=== PATIENT | female | born 1990 ===

== ENCOUNTER 2021-03-02 16:04 | Outpatient (REF) | payer MEDICAID, SELFPAY ==
--- NOTE | ~2021-03-02 | US_ITS ---
EXAMINATION: ULTRASOUND PELVIS AND TRANSVAGINAL CLINICAL INFORMATION: Dysmenorrhea COMPARISON: None TECHNIQUE: Transabdominal and transvaginal imaging of pelvis is performed FINDINGS: The exam is limited due to patient's body habitus. The uterus is anteverted and anteflexed measuring 9.7 cm in length, 3.5 cm in AP and 5.3 cm transverse dimension. The endometrial thickness measures 0.5 cm. No focal lesion seen in the uterus. The right ovary measures 4.8 x 3.4 x 4.6 cm and volume 29.3 mL. There is anechoic cyst with septation measuring 4.3 x 3.1 x 4.3 cm Left ovary measures 2.9 x 2.0 x 2.4 cm and volume 7.3 mL. There is small amount of free fluid in the cul-de-sac. US/US pelvic and transvaginal IMPRESSION: Small complex cyst right ovary measuring 4.3 x 3.1 x 4.3 cm.
== END 2021-03-02 16:05 | disposition home or self-care (01) ==
LOC: HO.US 16:04
PROVIDERS: Visit Provider Advanced Practice Midwife
DX: N94.6 Dysmenorrhea, unspecified (principal)
CPT/HCPCS: 76830; 76856

== ENCOUNTER 2021-07-15 09:15 | Emergency (ER) | payer MEDICAID, SELFPAY ==
--- NOTE | ~2021-07-15 | US_ITS ---
EXAMINATION: US OBSTETRICAL ULTRASOUND CLINICAL INFORMATION: 68 weeks gestation. Vaginal bleeding, lower abdominal cramping COMPARISON: None. TECHNIQUE: Transabdominal imaging of pelvis is performed. FINDINGS: There is a single live intrauterine fetus with a crown-rump length of 2.47 cm corresponding 9 weeks 2 days and NOE of 02/15/2022. There is visualization of yolk sac and pole. The heart rate is 1 76/m. The right ovary measures 2.6 x 1.9 x 1.9 cm and appears unremarkable. The left ovary measures 2.5 x 2.7 x 3.9 cm. There is anechoic cyst measuring 2.0 x 1.6 x 2.0 cm. There is no free fluid in the cul-de-sac. US/US OB pelvic and transvaginal IMPRESSION: Single live intrauterine fetus with ultrasound-guided age of 9 weeks 2 days and NOE of 02/15/2022. There is anechoic cyst left ovary measuring 2.0 x 1.6 x 2.0 cm.
[2021-07-15 09:20] VITALS: BP 141/77; PULSE 115; RESP 17; TEMP 36.8; O2SAT 98; BMI 47.1
--- NOTE | 2021-07-15 09:58 | ED_ITS ---
HPI - General Adult General Chief complaint: Vaginal Bleeding Stated complaint: vaginal bleeding - Time Seen by Provider: 07/15/21 09:50 Source: patient Mode of arrival: ambulatory History of Present Illness HPI narrative: 31-year-old female with a past medical history of sleep apnea, asthma, at about 6-8 weeks gestation, unknown LMP, presenting to the ED complaining of vaginal bleeding since yesterday. Admits recently found out she was on Saturday, had labs drawn outpatient, however does not remember HCG but was told she was 6-8 weeks , has not seen OBGYN yet. Also reports pelvic pressure. Denies fever, chills, lightheadedness/dizziness, nausea/vomiting, dysuria/hematuria, vaginal discharge Onset (ago): day(s) Related Data Allergies Allergy/AdvReac Type Severity Reaction Status Date / Time No Known Allergies Allergy Unverified 06/09/20 16:31 [No Known Allergies*] Seasonal Allergies Allergy Unknown itching Uncoded 05/05/19 00:00 Review of Systems Review of Systems: Constitutional: No Fever, No Chills, No Fatigue, No Malaise ENT/Mouth: No Ear Pain, No sore throat Cardiovascular: No Chest Pain, No SOB Respiratory: No Cough, No Dyspnea Gastrointestinal: No Nausea, No Vomiting, No Diarrhea, No Constipation, + Abdominal pain Genitourinary: + irregular bleeding, No Dysuria, No Urinary Frequency, No Hematuria, No Flank Pain Musculoskeletal: No joint pain, No Myalgias, No Joint Swelling Skin: No Skin Lesions, No rash Neuro: No Weakness, No Numbness, No Paresthesias, No Dizziness, No Headache Yes all other systems are reviewed and are negative [facility] Past Medical History Attestation statement: The following information was validated with the patient. Medical History (Updated 07/15/21 @ 12:38 by RUBEN Dowell) Asthma Irregular heart beat Sleep apnea Social History Social History Advance Directives: No Physical Exam Vital Signs: Vital Signs: Last Vital Signs Temp 98.3 F 07/15/21 09:20 Pulse 115 H 07/15/21 09:20 Resp 17 07/15/21 09:20 BP 141/77 H 07/15/21 09:20 Pulse Ox 98 07/15/21 09:20 Body Mass Index 47.1 Const: General: cooperative, healthy appearing, no acute distress, well developed, alert and awake Orientation/consciousness: patient oriented x3 Limitations: no limitations HENMT: Head: Yes normal to inspection Ears: hearing grossly normal bilaterally General nose exam: Normal external nose present Face and sinus: Yes normal facial exam Eyes: General: appearance normal, both eyes and all related structures EOM: EOMs intact bilaterally Neck: Neck: Yes normal visual inspection and Yes no meningeal signs Resp: Effort & Inspection: normal respiratory effort and no respiratory distress Cardio: Rate: regular rate GI: Inspection: Yes normal to inspection Palpation (GI): Soft to palpation, Tenderness to palpation present (GI) (Mild suprapubic TTP, no rebound or guarding), no guarding and not rigid : General: Yes no CVA tenderness Back/Spine/Pelvis: Back: no CVA tenderness Skin: Rashes: no rashes Wounds: no wounds Neuro: General: patient oriented x3, tone normal, moves all extremities and no meningeal signs Gait exam (Neuro): Normal gait present Extrem: General: Yes normal to inspection Course Course Course Narrative: -1205--labs unremarkable, beta quant 49,726 US OB pelvic and transvaginal IMPRESSION: Single live intrauterine fetus with ultrasound-guided age of 9 weeks 2 days and NOE of 02/15/2022. ? There is anechoic cyst left ovary measuring 2.0 x 1.6 x 2.0 cm. -1237--UA negative >> results discussed with patient including worrisome signs and symptoms and strict return precautions, she verbalized understanding feel safe for discharge home to follow-up with OBGYN Medical Decision Making MDM Narrative Medical decision making narrative: 31-year-old female with a past medical history of sleep apnea, asthma, at about 6-8 weeks gestation, unknown LMP, presenting to the ED complaining of vaginal bleeding since yesterday. On exam tachycardic, NAD, nontoxic appearing, abdomen soft with suprapubic TTP, on pelvic exam Concern for threatened /SAB vs ectopic. Lower concern for appendicitis/diverticulitis. R/o UTI Plan: Labs, UA, OB/pelvic U.S., IVF, reassess Lab Data Result diagrams: 07/15/21 10:17 07/15/21 10:17 Labs: Lab Results 07/15/21 07/15/21 07/15/21 Range/Units 10:17 10:17 12:07 WBC 8.9 (4.8-10.8) X10*3/uL RBC 5.04 (4.20-5.50) X10*6/uL Hgb 12.6 (12.0-16.0) g/dl Hct 41.0 (37-47) % MCV 81.3 (80-98) fL MCH 25.0 L (27.0-33.0) pg MCHC 30.7 L (31.0-35.0) g/dl RDW 14.6 (11.0-16.0) % Plt Count 224 (160-400) X10*3/uL MPV 12.1 (9.4-12.3) fL Immature Gran % (Auto) 0.3 (0.0-0.4) % Neut % (Auto) 59.6 (45-73) % Lymph % (Auto) 32.4 (20-40) % Harper % (Auto) 6.1 (2-11) % Eos % (Auto) 1.3 (0-4) % Baso % (Auto) 0.3 (0-2) % Lymph # (Auto) 2.9 (1.2-4.9) X10*3/uL Harper # (Auto) 0.5 (0.1-1.2) X10*3/uL Eos # (Auto) 0.1 (0.0-0.4) X10*3/uL Baso # (Auto) 0.0 (0.0-0.2) X10*3/uL Abs Immat Gran (auto) 0.03 (0.00-0.03) X10*3/uL Absolute Neuts (auto) 5.3 (2.0-8.3) X10*3/uL Absolute Nucleated RBC 0.000 (0.0-0.012) X10*3/uL Nucleated RBC % (auto) 0.0 (0.0-0.2) /100WBC Sodium 134 L (135-145) mmol/L Potassium 3.9 (3.3-5.1) mmol/L Chloride 100 (96-108) mmol/L Carbon Dioxide 26 (22-29) mmol/L Anion Gap 12 (12-20) BUN 11 (9-16) mg/dL Creatinine 0.69 (0.5-1.4) mg/dL Estim Creat Clear Calc 172.3 Estimated GFR > 60 Random Glucose 94 (60-115) mg/dL Calcium 9.5 (8.4-10.2) mg/dL Magnesium 1.7 (1.6-2.6) mg/dL Total Bilirubin 0.2 (0.0-1.0) mg/dL Direct Bilirubin < 0.2 (0.0-0.5) mg/dL AST 19 (5-31) U/L ALT 25 (0-31) U/L Alkaline Phosphatase 96 (39-117) U/L Total Protein 7.4 (6.5-8.0) g/dL Albumin 3.9 (3.5-5.0) g/dL Lipase 17 (8-78) U/L Beta HCG, Quant 16445 mIU/mL Urine Color YELLOW Urine Appearance CLOUDY Urine pH 7.0 (5.0-8.0) Ur Specific [place] 1.015 (1.005-1.025) Urine Protein NEG (NEG-TRACE) MG/DL Urine Glucose (UA) NEG (NEG) MG/DL Urine Ketones NEG (NEG) MG/DL Urine Blood NEG (NEG) Urine Nitrite NEG (NEG) Ur Leukocyte Esterase NEG (NEG) Discharge Plan Discharge Clinical Impression: Threatened Patient Disposition: Home, Self-Care Instructions: Threatened Miscarriage (ED) Additional Instructions: Your ultrasound showed a single live intrauterine at 9 weeks 2 days with an estimated delivery date of February 15 Your blood work was reassuring It is very important that you follow-up with her OBGYN If he develops constant worsening abdominal pain/cramping, worsening or persistent vaginal bleeding, vaginal discharge, lightheadedness or dizziness return to the ED immediately Referrals: Toby Wells MD [Physician] - 2 days
[2021-07-15] MEDS: 0.9 % Sodium Chloride 1,000 ML 999 ML IVCONT (10:18)
[2021-07-15 10:34] LABS: MANUAL DIFF FLAG NO
[2021-07-15 10:38] LABS: Basophils Percent Auto 0.3 % (0-2); Eosinophils Absolute Auto 0.1 X10*3/uL (0.0-0.4); Eosinophils Percent Auto 1.3 % (0-4); Hemoglobin 12.6 g/dl (12.0-16.0); Imm Gran Abs Auto 0.03 X10*3/uL (0.00-0.03); Imm Gran Pct Auto 0.3 % (0.0-0.4); Lymphocytes Absolute Auto 2.9 X10*3/uL (1.2-4.9); Lymphocytes Percent Auto 32.4 % (20-40); Mean Corpuscular HGB Conc 30.7 g/dl (31.0-35.0); Mean Corpuscular Volume 81.3 fL (80-98); Mean Platelet Volume 12.1 fL (9.4-12.3); Monocytes Absolute Auto 0.5 X10*3/uL (0.1-1.2); Monocytes Percent Auto 6.1 % (2-11); Neutrophils Absolute Auto 5.3 X10*3/uL (2.0-8.3); Neutrophils Percent Auto 59.6 % (45-73); Platelet Count 224 X10*3/uL (160-400); Red Blood Count 5.04 X10*6/uL (4.20-5.50); Red Cell Distribution Width 14.6 % (11.0-16.0); White Blood Count 8.9 X10*3/uL (4.8-10.8)
[2021-07-15 10:54] LABS: Alanine Aminotransferase 25 U/L (0-31); Albumin Level 3.9 g/dL (3.5-5.0); Alkaline Phosphatase 96 U/L (39-117); Anion Gap 12 (12-20); Aspartate Amino Transferase 19 U/L (5-31); Bilirubin Direct < 0.2 mg/dL (0.0-0.5); Bilirubin Total 0.2 mg/dL (0.0-1.0); Blood Urea Nitrogen 11 mg/dL (9-16); Calcium 9.5 mg/dL (8.4-10.2); Carbon Dioxide 26 mmol/L (22-29); Chloride 100 mmol/L (96-108); Creatinine Clr Calc Pharmacy 172.3; Estimated Glomerular Filt Rate > 60; Glucose Random 94 mg/dL (60-115); Lipase 17 U/L (8-78); Magnesium 1.7 mg/dL (1.6-2.6); Potassium 3.9 mmol/L (3.3-5.1); Sodium 134 mmol/L (135-145); Total Protein 7.4 g/dL (6.5-8.0)
--- NOTE | 2021-07-15 12:06 | PC.NURSE ---
Pt resting comfortably. Minimal vag bleeding noted when she urinated per report of pt
[2021-07-15 12:28] LABS: Appearance Urine CLOUDY; Color Urine YELLOW; Glucose Urine UA NEG (NEG); Leukocyte Esterase Urine NEG (NEG); Nitrite Urine NEG (NEG); Specific Gravity - Urine 1.015 (1.005-1.025); Urine Blood NEG (NEG); Urine Ketones NEG (NEG); Urine Protein NEG (NEG-TRACE)
[2021-07-15 12:48] VITALS: BP 159/77; PULSE 89; RESP 16; O2SAT 100
== END 2021-07-15 12:49 | disposition home or self-care (01) ==
PROVIDERS: Physician Assistant; Emergency Provider Emergency Medicine
DX: O20.0 Threatened abortion (principal); Z3A.01 Less than 8 weeks gestation of pregnancy
CPT/HCPCS: 36415; 76801; 76817; 80048; 80076; 81003; 83690; 83735; 84702; 85025; 96360; 99283; 99284

== ENCOUNTER → 2021-08-01 14:35 | Outpatient (BNVA) | payer MEDICAID, SELFPAY | PROVIDERS: Visit Provider Advanced Practice Midwife | DX: Z32.01 Encounter for pregnancy test, result positive (principal); O99.210 Obesity complicating pregnancy, unspecified trimester; E66.01 Morbid (severe) obesity due to excess calories; Z3A.00 Weeks of gestation of pregnancy not specified | CPT/HCPCS: 81025; 99202 ==

== ENCOUNTER 2021-09-14 17:55 | Emergency (ER) | payer MEDICAID, SELFPAY ==
[2021-09-14 18:10] VITALS: BP 154/73; PULSE 87; RESP 16; TEMP 37.1; O2SAT 99; BMI 47.9
[2021-09-14 20:00] VITALS: BP 131/85; PULSE 85; RESP 18; O2SAT 100
--- NOTE | 2021-09-14 20:08 | ED.FALL ---
HPI - Fall General Chief Complaint: Fall Stated Complaint: fall - 17 wks preg Time Seen by Provider: 09/14/21 20:08 Source: patient Mode of arrival: ambulatory Limitations: no limitations History of Present Illness HPI Narrative: Patient 17 weeks or going upstairs slipped and fell on her belly complaining of pressure feeling on right upper abdomen and left side pain no vaginal bleeding patient is obese 138 kg no other injury Related Data Home Medications Medication Instructions Recorded Confirmed albuterol sulfate 90 mcg/actuation 2 puff INHALATION Q6H PRN 08/01/21 08/01/21 aerosol inhaler (Proventil HFA) loratadine 10 mg tablet (Allergy 10 mg PO DAILY 08/01/21 08/01/21 Relief (loratadine)) prenat.vits,nirav,cch-auqs-wyvzm 1 tab PO DAILY 08/01/21 08/01/21 Allergies Allergy/AdvReac Type Severity Reaction Status Date / Time No Known Allergies Allergy Verified 09/14/21 20:27 [No Known Allergies*] Seasonal Allergies Allergy Unknown itching Uncoded 09/14/21 20:27 Review of Systems Review of Systems: Yes all other systems are reviewed and are negative [facility] Past Medical History Medical History Asthma Irregular heart beat Sleep apnea Social History Social History Advance Directives: No Advance Directives Information Provided: Yes Patient : Yes Physical Exam Vital Signs: Vital Signs: Last Vital Signs Temp 98.7 F 09/14/21 18:10 Pulse 85 09/14/21 20:00 Resp 18 09/14/21 20:00 BP 131/85 09/14/21 20:00 Pulse Ox 100 09/14/21 20:00 BMI result Body Mass Index 47.9 Appearance: Alert. Oriented X3. No acute distress. Eyes: No pallor or icterus HEENT: Atraumatic normocephalic Pharynx normal. Oral Mucosa moist Neck: Normal inspection. Neck supple. CVS: Normal heart rate and rhythm. Pulses normal. Respiratory: No respiratory distress. Equal air entry bilateral, no wheezing/rales/rhonchi Abdomen: Obese soft mild diffuse lower abdominal tenderness no rebound tenderness or guarding Bowel sounds are present, no mass palpable, no CVA tenderness Skin: Skin warm and dry. Normal skin color. Normal skin turgor. Extremities: No lower extremity edema. Neuro: Oriented X 3. Procedures Procedure Narrative Procedure Narrative: Ob ultrasound: Done by myself. heart sounds 151 beats per minute placenta intact no subchorionic bleed fetus with good movements MDM - Fall MDM Narrative Medical decision making narrative: Patient obese status post minor fall bedside ultrasound done which showed normal movements no subchorionic fluid collection heart rate was 151 beats per minute patient advised to follow with OBG if any concern Discharge Plan Discharge Clinical Impression: Blunt abdominal trauma Qualifiers: Encounter type: initial encounter Qualified Code(s): S39.91XA - Unspecified injury of abdomen, initial encounter Patient Disposition: Home, Self-Care Instructions: Blunt Abdominal Injury (ED) Additional Instructions: At this time your fetus has normal heart beats and no bleeding noticed Report to the ER/OBG if any vaginal bleed or increased abdominal pain Prescriptions: No Action prenat.vits,nirav,aie-htct-spame Tablet 1 tab PO DAILY RF: 0 loratadine [Allergy Relief (loratadine)] 10 mg tablet 10 mg PO DAILY RF: 0 albuterol sulfate [Proventil HFA] 90 mcg/actuation HFA aerosol inhaler 2 puff inhalation Q6H PRNRF: 0 Stand Alone Forms: Work/School Release Interventions: ED Discharge Assessment Last Done: 09/14/21 21:09
== END 2021-09-14 21:45 | disposition home or self-care (01) ==
PROVIDERS: Emergency Provider Internal Medicine
DX: O9A.212 Injury, poisoning and certain other consequences of external causes complicating pregnancy, second trimester (principal); S39.91XA Unspecified injury of abdomen, initial encounter; O99.212 Obesity complicating pregnancy, second trimester; Z3A.17 17 weeks gestation of pregnancy; W19.XXXA Unspecified fall, initial encounter; Y93.9 Activity, unspecified; Y92.9 Unspecified place or not applicable; Y99.9 Unspecified external cause status
CPT/HCPCS: 99283; 99284

== ENCOUNTER → 2021-09-28 15:17 | Outpatient (BNVA) | payer MEDICAID, SELFPAY | PROVIDERS: PCP Internal Medicine; Visit Provider Hospitalist | DX: G47.33 Obstructive sleep apnea (adult) (pediatric) (principal); J45.909 Unspecified asthma, uncomplicated; Z33.1 Pregnant state, incidental | CPT/HCPCS: 99202 ==

== ENCOUNTER → 2021-11-17 14:10 | Outpatient (BNVA) | payer MEDICAID, SELFPAY | PROVIDERS: PCP Internal Medicine; Visit Provider Hospitalist | DX: O99.352 Diseases of the nervous system complicating pregnancy, second trimester (principal); G47.33 Obstructive sleep apnea (adult) (pediatric); O99.512 Diseases of the respiratory system complicating pregnancy, second trimester; J45.909 Unspecified asthma, uncomplicated; Z3A.00 Weeks of gestation of pregnancy not specified; Z99.89 Dependence on other enabling machines and devices | CPT/HCPCS: 99212 ==

== ENCOUNTER → 2021-11-28 15:04 | Outpatient (BNVA) | payer MEDICAID, SELFPAY | PROVIDERS: PCP Internal Medicine; Referring Provider Internal Medicine; Visit Provider Nurse Practitioner Family | DX: O26.893 Other specified pregnancy related conditions, third trimester (principal); G47.33 Obstructive sleep apnea (adult) (pediatric); J30.2 Other seasonal allergic rhinitis; Z3A.00 Weeks of gestation of pregnancy not specified; Z91.14 Patient's other noncompliance with medication regimen; Z99.89 Dependence on other enabling machines and devices | CPT/HCPCS: 99202 ==

== ENCOUNTER 2021-12-03 21:17 | Emergency (ER) | payer MEDICAID, SELFPAY ==
[2021-12-03 21:58] VITALS: BP 158/48; PULSE 112; RESP 20; TEMP 37.4; O2SAT 96; BMI 49.8
[2021-12-04 04:10] VITALS: BP 139/76; PULSE 107; RESP 20; O2SAT 92
[2021-12-04 04:11] LABS: COVID-19 Test Negative (Negative)
[2021-12-04 04:18] LABS: Hematocrit 36.4 % (37.0-47.0); Hemoglobin 11.1 g/dl (12.0-16.0); Mean Corpuscular HGB Conc 30.5 g/dl (31.0-35.0); Mean Corpuscular Hemoglobin 24.7 pg (27.0-33.0); Mean Corpuscular Volume 81.1 fL (80.0-98.0); Mean Platelet Volume 11.4 fL (9.4-12.3); Platelet Count 204 X10*3/uL (160-400); Red Blood Count 4.49 X10*6/uL (4.20-5.50); Red Cell Distribution Width 14.6 % (11.0-16.0); White Blood Count 11.3 X10*3/uL (4.8-10.8)
--- NOTE | 2021-12-04 04:26 | ED_ITS ---
HPI - SOB/Dyspnea General Chief Complaint: Dyspnea Stated Complaint: asthmatic, SoB, cough Time Seen by Provider: 12/03/21 23:06 Source: patient Mode of arrival: ambulatory Limitations: no limitations History of Present Illness HPI Narrative: Patient comes emergency room complaining of cough, asthma exacerbation for about a week. Patient states she has been using her nebulization treatment without significant improvement. Denies chest pain, no calf pain. Of note, patient is 23 weeks . Patient denies abdominal cramping, vaginal discharge/fluid/blood Related Data Home Medications Medication Instructions Recorded Confirmed prenat.vits,nirav,ahi-mavd-tkuzl 1 tab PO DAILY 08/01/21 11/28/21 Previous Rx's Medication Instructions Recorded fluticasone propionate 50 2 spray INTRANASAL DAILY #16 g 12/04/21 mcg/actuation nasal spray,suspension (Flonase Allergy Relief) prednisone 50 mg tablet 50 mg PO DAILY #4 tab 12/04/21 Allergies Allergy/AdvReac Type Severity Reaction Status Date / Time No Known Allergies Allergy Verified 11/28/21 15:08 [No Known Allergies*] Seasonal Allergies Allergy Unknown itching Uncoded 11/28/21 15:08 Review of Systems Review of Systems: Constitutional : No Weight loss, No Fever, No Chills, No Night Sweats, No Fatigue, No Malaise ENT/Mouth : No Hearing loss, No Ear Pain, No Nasal Congestion, No Sinus Pain, No Hoarseness, No sore throat, No Rhinorrhea, No Swallowing Difficulty Eyes: No Eye Pain, No Swelling, No Redness, No Foreign Body, No Discharge, No Vision Changes Cardiovascular : No Chest Pain, no palpitations, no orthopnea Respiratory : Complaining of cough, frequent asthma exacerbations Gastrointestinal : No Nausea, No Vomiting, No Diarrhea, No Constipation, No abdominal Pain, No Hematochezia, No Melena Genitourinary : no irregular bleeding, No Dysuria, No Urinary Frequency, No Hematuria, No Urinary Incontinence, No Urgency, No Flank Pain, No Urinary Flow Changes, No Hesitancy Musculoskeletal : No joint pain, No Myalgias, No Joint Swelling Skin : No Skin Lesions, No rash Neuro : No Weakness, No Numbness, No Paresthesias, No Loss of Consciousness, No Dizziness, No Headache Psych : No Anxiety/Panic, No Depression, No SI/HI/AH/VH, No Social Issues, Heme/Lymph: No Bruising, No Bleeding,No Lymphadenopathy Endocrine : No Polyuria, No Polydipsia, No Temperature Intolerance [facility] Past Medical History Medical History Asthma Irregular heart beat GILBERTO (obstructive sleep apnea) Sleep apnea Surgical History History of section Family History Family History (Updated 11/28/21 @ 15:10 by GABI Boland) Father No problems noted. Mother No problems noted. 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 Oriented X3. No acute distress. Eyes: Pupils equal, round and reactive to light. ENT: Pharynx normal. Neck: Normal inspection. Neck supple. No lymph nodes noted. No crepitus CVS: Normal heart rate and rhythm. Pulses normal. Normal S1 and S2 Respiratory: No respiratory distress. Breath sounds normal. No Wheezing. No rales . Actively coughing Abdomen: Soft and nontender. No rigidity. No distention. Skin: Skin warm and dry. Normal skin color. Normal skin turgor. Extremities: No lower extremity edema. No Lacerations. No Rash Neuro: Oriented X 3. No motor deficit. No sensory deficit. Moving all extremities. No slurred speech. CN 2 through 12 grossly intact Psych: calm, cooperative, normal affect Course Course Course Narrative: Patient sounds nasally congested. At this time we will not get a x-ray. Patient . Patient has no fever, pneumonia is not suspected. Patient will be given prednisone and Flonase. Patient instructed to follow-up with her primary care physician P MDM - SOB/Dyspnea Lab Data Result diagrams: 12/04/21 04:15 12/04/21 04:15 Labs: Lab Results 12/04/21 12/04/21 Range/Units 03:51 04:15 WBC 11.3 H (4.8-10.8) X10*3/uL RBC 4.49 (4.20-5.50) X10*6/uL Hgb 11.1 L (12.0-16.0) g/dl Hct 36.4 L (37.0-47.0) % MCV 81.1 (80.0-98.0) fL MCH 24.7 L (27.0-33.0) pg MCHC 30.5 L (31.0-35.0) g/dl RDW 14.6 (11.0-16.0) % Plt Count 204 (160-400) X10*3/uL MPV 11.4 (9.4-12.3) fL Absolute Nucleated RBC 0.000 (0.0-0.012) X10*3/uL Nucleated RBC % (auto) 0.0 (0.0-0.2) /100WBC COVID-19 (JESSICA) Negative (Negative) COVID-19 Clin Com See Note Discharge Plan Discharge Clinical Impression: Acute upper respiratory infection, Asthma Patient Disposition: Home, Self-Care Instructions: Asthma (ED), Upper Respiratory Infection (ED) Additional Instructions: Please follow-up with your primary care physician tomorrow. If you have any worsening or new symptoms, please return to the emergency room or call 911 Prescriptions: New fluticasone propionate [Flonase Allergy Relief] 50 mcg/actuation spray,suspension 2 spray intranasal DAILY Qty: 16 0RF Rx Instructions: administer into each nostril prednisone 50 mg tablet 50 mg PO DAILY Qty: 4 0RF No Action prenat.vits,nirav,amw-qdha-eubbr Tablet 1 tab PO DAILY 0RF
[2021-12-04] MEDS: predniSONE 20 MG TABLET 60 MG PO (04:38)
--- NOTE | 2021-12-04 04:39 | PC.NURSE ---
pt a&o, no respiratory distress at this time. Pt able to speak in full sentence with no retraction. The plan is for the pt to be discharge home.
[2021-12-04 04:40] LABS: Alanine Aminotransferase 20 U/L (0-31); Albumin Level 3.4 g/dL (3.5-5.0); Alkaline Phosphatase 115 U/L (39-117); Anion Gap 15 (12-20); Aspartate Amino Transferase 22 U/L (5-31); Bilirubin Total < 0.2 mg/dL (0.0-1.0); Blood Urea Nitrogen 5 mg/dL (9-16); Calcium 8.7 mg/dL (8.4-10.2); Carbon Dioxide 21 mmol/L (22-29); Chloride 104 mmol/L (96-108); Creatinine Clr Calc Pharmacy 219.5; Estimated Glomerular Filt Rate > 60; Glucose Random 108 mg/dL (60-115); Sodium 136 mmol/L (135-145)
--- NOTE | 2021-12-04 04:52 | PC.NURSE ---
reviewed discharge instructions with pt, pt verbalized understanding.
== END 2021-12-04 04:53 | disposition home or self-care (01) ==
PROVIDERS: Emergency Provider Emergency Medicine; PCP Internal Medicine
DX: J06.9 Acute upper respiratory infection, unspecified (principal); J45.909 Unspecified asthma, uncomplicated; R06.00 Dyspnea, unspecified; R05.9 Cough, unspecified; Z20.822 Contact with and (suspected) exposure to COVID-19; Z79.899 Other long term (current) drug therapy
CPT/HCPCS: 36415; 80053; 85027; 87635; 99283

== ENCOUNTER → 2021-12-05 13:49 | Outpatient (BNVA) | payer MEDICAID, SELFPAY | PROVIDERS: PCP Internal Medicine; Visit Provider Hospitalist | DX: O99.519 Diseases of the respiratory system complicating pregnancy, unspecified trimester (principal); J45.909 Unspecified asthma, uncomplicated; O99.350 Diseases of the nervous system complicating pregnancy, unspecified trimester; G47.33 Obstructive sleep apnea (adult) (pediatric); Z3A.00 Weeks of gestation of pregnancy not specified; Z79.52 Long term (current) use of systemic steroids | CPT/HCPCS: 99212 ==

== ENCOUNTER → 2022-01-18 14:50 | Outpatient (BNVA) | payer MEDICAID, SELFPAY | PROVIDERS: PCP Internal Medicine; Visit Provider Hospitalist | DX: Z34.93 Encounter for supervision of normal pregnancy, unspecified, third trimester (principal); J45.909 Unspecified asthma, uncomplicated; J18.9 Pneumonia, unspecified organism; U07.1 COVID-19; Z3A.35 35 weeks gestation of pregnancy | CPT/HCPCS: 99212 ==

== ENCOUNTER 2022-07-06 12:19 | Outpatient (REF) | payer MEDICAID, SELFPAY ==
--- NOTE | ~2022-07-06 | XR_ITS ---
EXAMINATION: XR LUMBOSACRAL SPINE WITH OBLIQUES CLINICAL INFORMATION: Low back pain COMPARISON: Lumbar radiographs 04/25/2020. TECHNIQUE: Lumbar spine is imaged in 7 views: AP x2, lateral, lateral view coned to lumbosacral junction, and oblique x3. FINDINGS: There is normal lumbar segmentation with 5 nonrib-bearing lumbar vertebrae of normal height and normal lumbar lordosis. There is no lumbar vertebral compression, spondylolisthesis, disc narrowing. No erosive changes. No spondylolysis. The SI joints and visualized sacrum are unremarkable. XR/XR lumbar spine 4V min IMPRESSION: Unremarkable examination.
== END 2022-07-06 12:20 | disposition home or self-care (01) ==
LOC: HO.XRAY 12:19
PROVIDERS: PCP Internal Medicine; Visit Provider Internal Medicine
DX: M54.50 Low back pain, unspecified (principal)
CPT/HCPCS: 72110

== ENCOUNTER 2022-07-20 13:34 | Outpatient (REF) | payer MEDICAID, SELFPAY ==
[2022-07-20 13:47] LABS: MANUAL DIFF FLAG NO
[2022-07-20 14:11] LABS: Basophils Percent Auto 0.5 % (0-2); Eosinophils Absolute Auto 0.2 X10*3/uL (0.0-0.4); Eosinophils Percent Auto 2.5 % (0-4); Hematocrit 43.4 % (37.0-47.0); Hemoglobin 13.1 g/dl (12.0-16.0); Imm Gran Abs Auto 0.01 X10*3/uL (0.00-0.03); Imm Gran Pct Auto 0.1 % (0.0-0.4); Lymphocytes Absolute Auto 3.4 X10*3/uL (1.2-4.9); Lymphocytes Percent Auto 42.5 % (20-40); Mean Corpuscular HGB Conc 30.2 g/dl (31.0-35.0); Mean Corpuscular Hemoglobin 22.9 pg (27.0-33.0); Mean Corpuscular Volume 75.7 fL (80.0-98.0); Mean Platelet Volume 11.3 fL (9.4-12.3); Monocytes Absolute Auto 0.5 X10*3/uL (0.1-1.2); Monocytes Percent Auto 6.8 % (2-11); Neutrophils Absolute Auto 3.8 x10*3/uL (2.0-8.3); Neutrophils Percent Auto 47.6 % (45-73); Platelet Count 291 X10*3/uL (160-400); Red Blood Count 5.73 X10*6/uL (4.20-5.50); Red Cell Distribution Width 15.9 % (11.0-16.0); White Blood Count 7.9 X10*3/uL (4.8-10.8)
[2022-07-20 16:45] LABS: Erythrocyte Sedimentation Rate 22 MM/HR (0-20)
== END 2022-07-20 13:35 | disposition home or self-care (01) ==
LOC: HO.LAB 13:34
PROVIDERS: PCP Internal Medicine; Visit Provider Hospitalist
DX: J45.909 Unspecified asthma, uncomplicated (principal); G47.33 Obstructive sleep apnea (adult) (pediatric)
CPT/HCPCS: 36415; 82785; 85025; 85652; 86003; 99212

== ENCOUNTER → 2023-03-18 14:29 | Outpatient (BNVA) | payer MEDICAID, SELFPAY | PROVIDERS: PCP Internal Medicine; Visit Provider Hospitalist | DX: J45.40 Moderate persistent asthma, uncomplicated (principal); J30.9 Allergic rhinitis, unspecified; G47.33 Obstructive sleep apnea (adult) (pediatric) | CPT/HCPCS: 99212 ==

== ENCOUNTER 2023-08-08 10:03 | Outpatient (REF) | payer MEDICAID, SELFPAY ==
--- NOTE | ~2023-08-08 | XR_ITS ---
EXAMINATION: XR CHEST CLINICAL INFORMATION: Cough for 3 to 4 weeks. COMPARISON: Chest x-ray December 23, 2018 TECHNIQUE: 2 views of the chest were obtained. FINDINGS: Cardiac silhouette is normal in size. The lungs are well aerated. There is no lobar consolidation. No pleural effusion or pneumothorax. Mild degenerative changes of the spine. XR/XR chest 2V IMPRESSION: No acute pulmonary pathology.
== END 2023-08-08 10:04 | disposition home or self-care (01) ==
LOC: HO.HHCX 10:03
PROVIDERS: Visit Provider Family Medicine
DX: R05.2 Subacute cough (principal)
CPT/HCPCS: 71046

== ENCOUNTER 2023-10-27 12:49 | Emergency (ER) | payer MEDICAID, SELFPAY ==
--- NOTE | ~2023-10-27 | US_ITS ---
EXAMINATION: US PELVIS CLINICAL INFORMATION: Ovarian lesion abnormal CT scan COMPARISON: CT 10/27/2023 TECHNIQUE: Ultrasound of the pelvis is performed using both transabdominal and transvaginal transducers along with Doppler. Transvaginal imaging is performed due to inadequate visualization transabdominally. FINDINGS: The uterus measures 11.4 x 3.7 x 5.8 cm. Endometrial stripe measures 0.9 cm in thickness. Nabothian cysts noted in the cervix. The right ovary measures 2.4 x 1.4 x 1.4 cm (volume 2.5 mL) and appears unremarkable. The left ovary measures 4.1 x 3.4 x 2.9 cm (volume 21.2 mL). There is a thick-walled, complex appearing left ovarian cyst measuring up to 2.4 cm. Doppler evaluation demonstrates normal-appearing arterial and venous waveforms in both ovaries. Small amount of pelvic free fluid is noted. US/US pelvic ovarian doppler IMPRESSION: Thick-walled, complex left ovarian cyst measuring up to 2.4 cm, which may represent a hemorrhagic cyst. Follow-up pelvic ultrasound in 6-8 weeks is recommended to assess for resolution. Small amount of nonspecific pelvic free fluid.
--- NOTE | ~2023-10-27 | US_ITS ---
EXAMINATION: US PELVIS CLINICAL INFORMATION: Ovarian lesion abnormal CT scan COMPARISON: CT 10/27/2023 TECHNIQUE: Ultrasound of the pelvis is performed using both transabdominal and transvaginal transducers along with Doppler. Transvaginal imaging is performed due to inadequate visualization transabdominally. FINDINGS: The uterus measures 11.4 x 3.7 x 5.8 cm. Endometrial stripe measures 0.9 cm in thickness. Nabothian cysts noted in the cervix. The right ovary measures 2.4 x 1.4 x 1.4 cm (volume 2.5 mL) and appears unremarkable. The left ovary measures 4.1 x 3.4 x 2.9 cm (volume 21.2 mL). There is a thick-walled, complex appearing left ovarian cyst measuring up to 2.4 cm. Doppler evaluation demonstrates normal-appearing arterial and venous waveforms in both ovaries. Small amount of pelvic free fluid is noted. US/US pelvic and transvaginal IMPRESSION: Thick-walled, complex left ovarian cyst measuring up to 2.4 cm, which may represent a hemorrhagic cyst. Follow-up pelvic ultrasound in 6-8 weeks is recommended to assess for resolution. Small amount of nonspecific pelvic free fluid.
--- NOTE | ~2023-10-27 | CT_ITS ---
EXAMINATION: CT ABDOMEN AND PELVIS WITH CONTRAST CLINICAL INFORMATION: Left lower quadrant pain COMPARISON: None available. TECHNIQUE: Multidetector volumetric images were obtained from the superior aspect of the liver through the pubic symphysis following administration 85 mL of Omnipaque 350 intravenous contrast. Sagittal and coronal reformatted images were obtained on the technologist's workstation. Oral contrast: No This CT examination was performed using dose optimization techniques as appropriate, variously including the following: *Automated exposure control *Adjustment of mA and/or kV according to patient size (this includes techniques or standardized protocols for targeted exams where dose is matched to indication/reason for exam; i.e. extremities or head) *Use of iterative reconstruction technique DLP: 1061 mGy-cm FINDINGS: LUNG BASES: The visualized lung bases are unremarkable. LIVER, GALLBLADDER, AND BILIARY TREE: Hepatic steatosis. No focal hepatic lesion or intrahepatic biliary ductal dilatation. The gallbladder is unremarkable with no evidence of radiopaque gallstones, gallbladder wall thickening, or obvious pericholecystic inflammatory changes. PANCREAS: Unremarkable. SPLEEN: Unremarkable. ADRENAL GLANDS: Unremarkable. KIDNEYS AND URETERS: The kidneys are normal in size, shape, and attenuation. No hydronephrosis, hydroureter, or calculi seen. No perinephric stranding. BLADDER: Unremarkable. GASTROINTESTINAL TRACT: Postsurgical changes related to gastric bypass. No evidence of obstruction. Appendix is not visualized, however there are no inflammatory changes seen in the right lower quadrant ABDOMINAL WALL: No significant hernia is appreciated. LYMPH NODES: Normal. VASCULAR: Unremarkable. PELVIC VISCERA: In the left adnexal region is a multiloculated area with mild surrounding stranding. Differential considerations include hemorrhagic intraovarian cyst, ovarian enlargement, although a hydrosalpinx or pyosalpinx cannot be excluded. OSSEOUS STRUCTURES: Unremarkable. CT/CT abdomen pelvis w IV con IMPRESSION: In the left adnexal region is a multiloculated area with mild surrounding stranding. Differential considerations include hemorrhagic intraovarian cyst, ovarian enlargement, although a hydrosalpinx or pyosalpinx cannot be excluded. Recommend further evaluation with pelvic ultrasound.
[2023-10-27 13:04] VITALS: BP 116/71; PULSE 69; RESP 19; TEMP 36.2; O2SAT 100; BMI 39.7
--- NOTE | 2023-10-27 13:07 | ED_ITS ---
HPI - General Adult General Chief complaint: General Medical Stated complaint: Lower Abd Pain into Back Time Seen by Provider: 10/27/23 22:33 Source: patient Mode of arrival: ambulatory Limitations: no limitations History of Present Illness HPI narrative: 33 yo female with PMH of asthma, , gastric sleeve yesterday started with L flank pain and LLQ pain but no associated n/v/d she denies urinary symptoms. pain with movement and palpation. No fevers. Not on ocps, no vaginal discharge had tubal ligation in past. MD complaint: flank and LLQ pain Onset (ago): day(s) (1) Location: back and abdomen Radiation: non-radiation Severity: moderate Quality: aching Pain Consistency: constant Relieving factors: none Exacerbating factors: movement Associated symptoms: denies other symptoms Treatments prior to arrival: none Related Data Home Medications Medication Instructions Recorded Confirmed albuterol sulfate 2.5 mg/3 mL 2.5 mg inhalation TID 07/20/22 (0.083 %) solution for nebulization nebulizers 03/18/23 Previous Rx's Medication Instructions Recorded fluticasone propionate 50 2 spray intranasal DAILY #16 grams 12/04/21 mcg/actuation nasal spray,suspension (Flonase Allergy Relief) budesonide 0.25 mg/2 mL suspension 0.25 mg (2 mL) inhalation BID #120 12/05/21 for nebulization mL azelastine 137 mcg (0.1 %) nasal 2 spray intranasal BID 30 days #30 07/20/22 spray aerosol mL montelukast 10 mg tablet 10 mg PO BEDTIME 30 days #30 tabs 07/20/22 (Singulair) pseudoephedrine HCl 120 mg 120 mg PO Q12H 30 days #60 tabs 07/20/22 tablet,extended release albuterol sulfate 90 mcg/actuation 2 inh inhalation Q6H PRN shortness 03/18/23 aerosol inhaler of breath or wheezing 30 days #18 grams budesonide-formoterol HFA 160 2 puff inhalation BID 30 days 03/18/23 mcg-4.5 mcg/actuation aerosol #10.2 grams inhaler (Symbicort) prednisone 20 mg tablet See Rx Instructions PO DAILY 10 03/18/23 days #15 tabs hydrocodone 5 mg-acetaminophen 325 1 tab PO Q6H PRN pain #10 tabs 02/05/24 mg tablet ibuprofen 600 mg tablet 600 mg PO Q6H PRN pain #30 tabs 10/28/23 ondansetron 4 mg disintegrating 4 mg PO Q8H PRN nausea and 10/28/23 tablet vomiting #20 tabs Allergies Allergy/AdvReac Type Severity Reaction Status Date / Time No Known Allergies Allergy Verified 03/18/23 14:41 [No Known Allergies*] Seasonal Allergies Allergy Unknown itching Uncoded 03/18/23 14:41 Review of Systems 2 Review of Systems: Constitutional : No Weight loss, No Fever, No Chills ENT/Mouth : No sore throat, No Rhinorrhea Eyes: No Swelling, No Redness Cardiovascular : No Chest Pain, No SOB, NoEdema Respiratory : No Cough, No Sputum, No Wheezing Gastrointestinal : no Nausea, no Vomiting, no Diarrhea, positive abdominal Pain, No Hematochezia, No Melena Genitourinary : No Dysuria, No Urinary Frequency, No Hematuria, No Urgency Musculoskeletal : No joint pain, No Myalgias, No Joint Swelling Skin : No Skin Lesions, No rash Neuro : No Weakness, No Numbness, No Dizziness, No Headache Psych : No Anxiety/Panic, No Depression All other systems reviewed and are negative. [facility] Past Medical History Attestation statement: The following information was validated with the patient. Source: old records reviewed Medical History Chronic allergic rhinitis COVID-19 Pneumonia GILBERTO (obstructive sleep apnea) Irregular heart beat Sleep apnea Asthma Surgical History History of section Family History Family History (Updated 11/28/21 @ 15:10 by GABI Boland) Father No problems noted. Mother No problems noted. 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 Oriented X3. No acute distress. Eyes: Pupils equal, round and reactive to light. ENT: Pharynx normal. Neck: Normal inspection. Neck supple. CVS: Normal heart rate and rhythm. Pulses normal. Respiratory: No respiratory distress. Breath sounds normal. Abdomen: Soft and moderate LLQ pain no rebound or guarding Skin: Skin warm and dry. Normal skin color. Normal skin turgor. Extremities: No lower extremity edema. No calf ttp Neuro: Oriented X 3. No motor deficit. No sensory deficit. Course Course Course Narrative: RME: 33-year-old female presents ED for left flank left lower abdominal pain since yesterday without any trauma. Patient states no nausea vomiting or diarrhea. Labs ordered. Reevaluation(s) Reevaluation #1: pain improved with IV morphine Medications Administered Discontinued Medications Generic Name Dose Route Start Last Admin Trade Name Freq PRN Reason Stop Dose Admin Sodium Chloride 1,000 mls @ 999 mls/hr 10/27/23 22:45 10/28/23 02:00 Ns IV 10/27/23 23:45 Infused .Q1H1M DUNIA Infusion Iohexol 100 ml 10/27/23 23:45 10/27/23 23:45 Iohexol 350 Mg/Ml 100 Ml Infus..Btl IV 10/27/23 23:46 100 ml ONCE ONE Administration Morphine Sulfate 4 mg 10/27/23 22:41 10/28/23 00:30 Morphine Sulfate 4 Mg/Ml Cartridge IVPUSH 10/27/23 22:42 4 mg ONCE ONE Administration Protocol Ondansetron HCl 4 mg 10/27/23 22:41 10/28/23 00:30 Ondansetron Hcl 4 Mg/2 Ml Vial IVPUSH 10/27/23 22:42 4 mg ONCE ONE Administration Medical Decision Making Medical Decision Making MDM Narrative: 33 yo female with PMH of c section, gastric sleeve here with pain in L flank and LLQ but no associated GI or symptoms painful to move and touch at this time will obtain labs, UA, CT scan for renal colic, diverticulitis Differential Diagnosis Differential Diagnoses: The differential diagnosis associated with the presentation includes renal colic, diverticulitis Admission/Observation Consideration of admission/observation: Escalation of care including admission/observation considered pain stable H/H stable VS stable can go home with pain medications no torsion Lab Data MDM Lab Attestation statement: I reviewed the patient's lab results. 10/27/23 15:15 10/27/23 15:15 Labs: Lab Results 10/27/23 10/27/23 Range/Units 14:54 15:15 WBC 8.6 (4.8-10.8) X10*3/uL RBC 5.24 (4.20-5.50) X10*6/uL Hgb 12.2 (12.0-16.0) g/dl Hct 39.9 (37.0-47.0) % MCV 76.1 L (80.0-98.0) fL MCH 23.3 L (27.0-33.0) pg MCHC 30.6 L (31.0-35.0) g/dl RDW 15.9 (11.0-16.0) % Plt Count 235 (160-400) X10*3/uL MPV 11.8 (9.4-12.3) fL Immature Gran % (Auto) 0.2 (0.0-0.4) % Neut % (Auto) 48.6 (45-73) % Lymph % (Auto) 38.9 (20-40) % Cooper % (Auto) 8.5 (2-11) % Eos % (Auto) 3.1 (0-4) % Baso % (Auto) 0.7 (0-2) % Lymph # (Auto) 3.4 (1.2-4.9) X10*3/uL Cooper # (Auto) 0.7 (0.1-1.2) X10*3/uL Eos # (Auto) 0.3 (0.0-0.4) X10*3/uL Baso # (Auto) 0.1 (0.0-0.2) X10*3/uL Abs Immat Gran (auto) 0.02 (0.00-0.03) X10*3/uL Absolute Neuts (auto) 4.2 (2.0-8.3) x10*3/uL Absolute Nucleated RBC 0.000 (0.0-0.012) X10*3/uL Nucleated RBC % (auto) 0.0 (0.0-0.2) /100WBC Sodium 141 (135-145) mmol/L Potassium 3.7 (3.3-5.1) mmol/L Chloride 105 (96-108) mmol/L Carbon Dioxide 28 (22-29) mmol/L Anion Gap 12 (12-20) BUN 9 (9-16) mg/dL Creatinine 0.67 (0.5-1.4) mg/dL Estim Creat Clear Calc 157.8 Estimated GFR > 60 Random Glucose 95 (60-115) mg/dL Calcium 9.2 (8.4-10.2) mg/dL Total Bilirubin 0.3 (0.0-1.0) mg/dL AST 16 (5-31) U/L ALT 15 (0-31) U/L Alkaline Phosphatase 105 (39-117) U/L Total Protein 8.0 (6.5-8.0) g/dL Albumin 4.0 (3.5-5.0) g/dL Lipase 13 (8-78) U/L Beta HCG, Quant < 2 mIU/mL Urine Color Yellow Urine Appearance Cloudy Urine pH 7.0 (5.0-9.0) Ur Specific Girard >= 1.030 H (1.005-1.025) Urine Protein Trace (Neg-Trace) mg/dL Urine Glucose (UA) Negative (Negative) mg/dL Urine Ketones Trace (Negative) mg/dL Urine Blood Negative (Negative) Urine Nitrite Negative (Negative) Ur Leukocyte Esterase Negative (Negative) Urine Test NEGATIVE (NEGATIVE) Independent Interpretation I performed an independent interpretation of an: Ultrasound (ovarian cyst) and CT Scan Radiology Impression Discussion of test interpretation with radiology: I have reviewed the radiologist's reading. Independent Historian Clinical information obtained from an independent historian. History obtained from or confirmed by: Spouse External Record Review External record reviewed: Office record Prescription Management I considered prescription management with: Pain Medication Critical Care Time Critical Care Time Critical Care Time: Yes Total Critical Care Time: 35 Attestation: pain improved with IV morphine, repeat assessments I attest to this time spent taking care of the patient Discharge Plan Discharge Clinical Impression: Ovarian cyst Patient Disposition: Home, Self-Care Instructions: Ovarian Cyst (ED) Additional Instructions: follow up with OBGYN or your doctor in 1 week to monitor ovarian cyst - repeat US in 4 to 6 weeks return for worsening pain dizziness increased pain or fevers FINDINGS: The uterus measures 11.4 x 3.7 x 5.8 cm. Endometrial stripe measures 0.9 cm in thickness. Nabothian cysts noted in the cervix. The right ovary measures 2.4 x 1.4 x 1.4 cm (volume 2.5 mL) and appears unremarkable. The left ovary measures 4.1 x 3.4 x 2.9 cm (volume 21.2 mL). There is a thick-walled, complex appearing left ovarian cyst measuring up to 2.4 cm. Doppler evaluation demonstrates normal-appearing arterial and venous waveforms in both ovaries. Small amount of pelvic free fluid is noted. US/US pelvic and transvaginal IMPRESSION: Thick-walled, complex left ovarian cyst measuring up to 2.4 cm, which may represent a hemorrhagic cyst. Follow-up pelvic ultrasound in 6-8 weeks is recommended to assess for resolution. Small amount of nonspecific pelvic free fluid. Prescriptions: New hydrocodone-acetaminophen 5-325 mg tablet 1 tab PO Q6H PRN (Reason: pain) Qty: 10 0RF Rx Instructions: partial fill okay; Partial Fill upon patient request. ibuprofen 600 mg tablet 600 mg PO Q6H PRN (Reason: pain) Qty: 30 0RF ondansetron 4 mg tablet,disintegrating 4 mg PO Q8H PRN (Reason: nausea and vomiting) Qty: 20 0RF No Action fluticasone propionate [Flonase Allergy Relief] 50 mcg/actuation spray,suspension 2 spray intranasal DAILY Qty: 16 0RF Rx Instructions: administer into each nostril albuterol sulfate 2.5 mg /3 mL (0.083 %) solution for nebulization 2.5 mg inhalation TID azelastine 137 mcg (0.1 %) aerosol,spray 2 spray intranasal BID 30 Days Qty: 30 6RF Rx Instructions: administer into each nostril pseudoephedrine HCl 120 mg tablet extended release 120 mg PO Q12H 30 Days Qty: 60 1RF montelukast [Singulair] 10 mg tablet 10 mg PO BEDTIME 30 Days Qty: 30 11RF budesonide 0.25 mg/2 mL suspension for nebulization 0.25 mg inhalation BID Qty: 120 3RF (DME) nebulizers Misc See Rx Instructions .ROUTE Rx Instructions: As directed albuterol sulfate 90 mcg/actuation HFA aerosol inhaler 2 inh inhalation Q6H PRN (Reason: shortness of breath or wheezing) 30 Days Qty: 18 12RF budesonide-formoterol [Symbicort] 160-4.5 mcg/actuation HFA aerosol inhaler 2 puff inhalation BID 30 Days Qty: 10.2 11RF prednisone 20 mg tablet See Rx Instructions PO DAILY 10 Days Qty: 15 0RF Rx Instructions: PO daily; Take 2 tabs daily x 5 days, then 1 tablet daily x 5 days Interventions: ED Discharge Assessment Last Done: 10/28/23 03:48 Discharge Date/Time: 10/28/23 03:49
[2023-10-27 15:10] LABS: Appearance Urine Cloudy; Color Urine Yellow; Glucose Urine UA Negative (Negative); Leukocyte Esterase Urine Negative (Negative); Nitrite Urine Negative (Negative); Specific Gravity - Urine >= 1.030 (1.005-1.025); Urine Blood Negative (Negative); Urine Ketones Trace mg/dL (Negative); Urine Protein Trace mg/dL (Neg-Trace)
[2023-10-27 15:11] LABS: UPreg QC Valid YES; Urine Pregnancy NEGATIVE (NEGATIVE)
[2023-10-27 15:24] LABS: MANUAL DIFF FLAG NO
[2023-10-27 15:26] LABS: Basophils Absolute Auto 0.1 X10*3/uL (0.0-0.2); Basophils Percent Auto 0.7 % (0-2); Eosinophils Absolute Auto 0.3 X10*3/uL (0.0-0.4); Eosinophils Percent Auto 3.1 % (0-4); Hematocrit 39.9 % (37.0-47.0); Hemoglobin 12.2 g/dl (12.0-16.0); Imm Gran Abs Auto 0.02 X10*3/uL (0.00-0.03); Imm Gran Pct Auto 0.2 % (0.0-0.4); Lymphocytes Absolute Auto 3.4 X10*3/uL (1.2-4.9); Lymphocytes Percent Auto 38.9 % (20-40); Mean Corpuscular HGB Conc 30.6 g/dl (31.0-35.0); Mean Corpuscular Hemoglobin 23.3 pg (27.0-33.0); Mean Corpuscular Volume 76.1 fL (80.0-98.0); Mean Platelet Volume 11.8 fL (9.4-12.3); Monocytes Absolute Auto 0.7 X10*3/uL (0.1-1.2); Monocytes Percent Auto 8.5 % (2-11); Neutrophils Absolute Auto 4.2 x10*3/uL (2.0-8.3); Neutrophils Percent Auto 48.6 % (45-73); Platelet Count 235 X10*3/uL (160-400); Red Blood Count 5.24 X10*6/uL (4.20-5.50); Red Cell Distribution Width 15.9 % (11.0-16.0); White Blood Count 8.6 X10*3/uL (4.8-10.8)
[2023-10-27 15:45] LABS: Alanine Aminotransferase 15 U/L (0-31); Alkaline Phosphatase 105 U/L (39-117); Anion Gap 12 (12-20); Aspartate Amino Transferase 16 U/L (5-31); Bilirubin Total 0.3 mg/dL (0.0-1.0); Blood Urea Nitrogen 9 mg/dL (9-16); Calcium 9.2 mg/dL (8.4-10.2); Carbon Dioxide 28 mmol/L (22-29); Chloride 105 mmol/L (96-108); Creatinine Clr Calc Pharmacy 157.8; Estimated Glomerular Filt Rate > 60; Glucose Random 95 mg/dL (60-115); HCG Quantitative < 2 mIU/mL; Lipase 13 U/L (8-78); Potassium 3.7 mmol/L (3.3-5.1); Sodium 141 mmol/L (135-145)
[2023-10-27 20:32] VITALS: BP 112/70; PULSE 74; RESP 18; TEMP 36.1; O2SAT 98
--- NOTE | 2023-10-27 20:35 | PC.NURSE ---
Patient continues to have the back pain that wraps around to her abdomen. Patient thinks that the pain might be a little worse than earlier from sitting in the waiting room. Patient is generally well appearing at this time breathing evening, skin tone WNL dry and intact.
[2023-10-27] MEDS: iohexoL 350 MG/ML 100 ML INFUS..BTL IV (23:45)
[2023-10-28] MEDS: 0.9 % Sodium Chloride 1,000 ML 999 ML IV (00:30)
[2023-10-28] MEDS: Morphine Sulfate 4 MG/ML CARTRIDGE IVPUSH (00:30)
[2023-10-28] MEDS: ondansetron HCL 4 MG/2 ML VIAL IVPUSH (00:30)
[2023-10-28 03:00] VITALS: BP 119/84; PULSE 60; RESP 16; O2SAT 100
== END 2023-10-28 03:49 | disposition home or self-care (01) ==
PROVIDERS: Physician Assistant; Emergency Provider Emergency Medicine; PCP Internal Medicine
DX: D27.1 Benign neoplasm of left ovary (principal); R10.32 Left lower quadrant pain; R11.2 Nausea with vomiting, unspecified; Z98.84 Bariatric surgery status; Z79.899 Other long term (current) drug therapy
CPT/HCPCS: 36415; 74177; 76830; 76856; 80053; 81003; 81025; 83690; 84702; 85025; 93975; 96361; 96374; 96375; 99284; J2270; J2405; Q9967

== ENCOUNTER 2024-10-08 08:50 | Outpatient (AMB) | payer MEDICAID, SELFPAY ==
--- NOTE | 2024-10-08 09:00 | A.OFFVIS_ITS ---
Vital Signs 10/08/24 09:06 Height 5 ft 7 in Weight 196 lb BMI 30.7 Intake Visit Reasons: Left knee pain and giving way Intake Note: Aline is a 34 year old right hand dominant female who presents with complaints of progressively worsening left knee pain and giving way. She describes her pain as sharp and severe. Most of the pain is along the medial and anterior aspects of her left knee. She states that she injured her knee several years ago. She twisted her knee and had acute onset of pain. She has failed the last 6 weeks of conservative treatment which has included physical therapy exercises, Tylenol and anti-inflammatory medicines. At this point her left knee pain and mechanical symptoms are interfering with her activities of daily living and her ability to sleep well through the night. She states that her left knee will give out several times per day. Of note, the patient has been able to lose approximately 130 lb after undergoing gastric surgery 1 year ago. The weight loss has seemed to aggravate her left knee pain. Allergies No Known Allergies [No Known Allergies*] Allergy (Verified 10/08/24 09:01) Seasonal Allergies Allergy (Unknown, Uncoded 10/08/24 09:01) itching Medication List - Last Reconciled 10/08/24 by Dominic Landrum MD montelukast 10 mg PO BEDTIME nebulizers As directed [facility] Medical History Chronic allergic rhinitis COVID-19 Pneumonia GILBERTO (obstructive sleep apnea) Irregular heart beat Sleep apnea Asthma Surgical History History of section Family History (Updated 11/28/21 @ 15:10 by GABI Boland) Father No problems noted. Mother No problems noted. 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 Physical Exam Vital Signs: BMI result Body Mass Index 30.7 Const Other: Well-nourished well-developed very friendly female awake alert and oriented x3 in no acute distress Extrem Other: Bilateral lower extremity examination shows good capillary refill, no skin lesions noted, normal sensation light touch Left knee examination shows a minimal effusion, minimal crepitus with range of motion, tenderness along her medial joint line, positive Lynette's test, no instability Results Reviewed Results Reviewed: Standing full weight-bearing x-rays of the patient's left knee show minimal joint space narrowing, no acute bony abnormalities Assessment & Plan Assessment & Plan (1) Tear of medial meniscus of left knee: Code(s): S83.242A - Other tear of medial meniscus, current injury, left knee, initial encounter Category: Medical Plan Ms. Kuldeep Chavez presents with progressively worsening left knee pain and mechanical symptoms most likely due to a medial meniscus tear. Thus, I will send the patient for an MRI of her left knee for further evaluation. I will see her back once the MRI is completed to discuss the findings and treatment options. Feel free to call me at any time should questions regarding her orthop edic management arise. I spent 20 minutes in reviewing the patient's records and imaging studies, seeing the patient and documenting in the medical record. Orders: Orders XR knee LT 3V Today M25.562 - Pain in left knee MR knee LT wo con Today S83.242A - Other tear of medial meniscus, current injury, left knee, initial encounter Coding Level of Care Code New Pt Level 3 (73047) Complex EM visit Add On G2211 Diagnoses Tear of medial meniscus of left knee S83.242A
[2024-10-08 09:06] VITALS: BMI 30.7
== END 2024-10-08 09:15 | disposition home or self-care (01) ==
PROVIDERS: PCP Internal Medicine; Visit Provider Orthopaedic Surgery
DX: S83.242A Other tear of medial meniscus, current injury, left knee, initial encounter (principal)
CPT/HCPCS: 99203

== ENCOUNTER 2024-10-08 09:14 | Outpatient (REF) | payer MEDICAID, SELFPAY ==
--- NOTE | ~2024-10-08 | XR_ITS ---
EXAMINATION: XR KNEE 3 VIEWS LEFT HISTORY: M25.562 - Pain in left knee COMPARISON: There are no prior studies available for comparison. FINDINGS: Three views of the left knee are submitted. Osseous mineralization is normal. There is no fracture or dislocation. The joint spaces are preserved. The soft tissues are unremarkable. XR/XR knee LT 3V IMPRESSION: Unremarkable examination of the left knee. Electronically signed by: Georgi Negro MD 10/09/2024 07:40 AM NNACY
== END 2024-10-08 09:15 | disposition home or self-care (01) ==
LOC: HO.HOSX 09:14
PROVIDERS: Visit Provider Orthopaedic Surgery
DX: M25.562 Pain in left knee (principal); S83.242A Other tear of medial meniscus, current injury, left knee, initial encounter
CPT/HCPCS: 73562; 99202

== ENCOUNTER 2024-10-09 16:37 | Outpatient (REF) | payer MEDICAID, SELFPAY ==
--- NOTE | ~2024-10-09 | MR_ITS ---
EXAMINATION: MRI LEFT KNEE WITHOUT CONTRAST HISTORY: S83.242A - Other tear of medial meniscus, current injury, left knee COMPARISON: Correlation is made with plain films of the left knee dated 10/08/2024. TECHNIQUE: Coronal T1 and fat-suppressed proton density, sagittal proton density and fat-suppressed proton density, and axial fat suppressed T2 weighted MR images of the left knee were obtained. FINDINGS: Bone marrow signal intensity is mildly heterogeneous which may reflect residual red marrow. No focal abnormality is seen. There is no significant suprapatellar joint effusion. There is no Haywood's cyst. The anterior and posterior cruciate ligaments and medial and lateral collateral ligaments are intact. There is a linear focus of increased T2 signal intensity within the medial meniscus which appears to contact the superior joint surface at the meniscal body (series 10, image 16), suggestive of a tear. This is not well visualized on the sagittal images. The lateral meniscus is intact. The patellar and quadriceps tendons and patellar retinacula are unremarkable in appearance. No articular cartilage abnormality is seen. MR/MR knee LT wo con IMPRESSION: Possible horizontal tear of the body of the medial meniscus as described. Electronically signed by: Georgi Negro MD 10/12/2024 07:33 AM EST
== END 2024-10-09 16:38 | disposition home or self-care (01) ==
LOC: HO.MRI 16:37
PROVIDERS: PCP Internal Medicine; Visit Provider Orthopaedic Surgery
DX: S83.242A Other tear of medial meniscus, current injury, left knee, initial encounter (principal)
CPT/HCPCS: 73721

== ENCOUNTER → 2024-10-09 16:44 | Outpatient (BNV) | payer MEDICAID, SELFPAY | PROVIDERS: PCP Internal Medicine; Visit Provider Radiology Diagnostic Radiology | DX: S83.242A Other tear of medial meniscus, current injury, left knee, initial encounter (principal) | CPT/HCPCS: 73721 ==

== ENCOUNTER 2024-10-14 08:25 | Outpatient (AMB) | payer MEDICAID, SELFPAY ==
[2024-10-14 08:31] VITALS: BMI 30.7
--- NOTE | 2024-10-14 08:31 | MHC.OFFVIS ---
Vital Signs 10/14/24 08:31 Height 5 ft 7 in Weight 196 lb BMI 30.7 Intake Visit Reasons: OV-Left Knee MRI Review Intake Note: Aline is a 34 year old female who presents with complaints of left knee pain. She describes her pain as sharp in nature. Most of the pain is along the medial and lateral aspects of her knee. She has had cortisone injections in the past. The most recent injection gave her minimal relief. She has failed the last 3 months of conservative treatment which has included physical therapy exercises, Tylenol and anti-inflammatory medicines. Her symptoms have gotten worse over the last year. She wishes to hold off on surgery if at all possible. Allergies No Known Allergies [No Known Allergies*] Allergy (Verified 10/14/24 08:33) Seasonal Allergies Allergy (Unknown, Uncoded 10/14/24 08:33) itching Medication List - Last Reconciled 10/14/24 by Dominic Landrum MD montelukast 10 mg PO BEDTIME nebulizers As directed [facility] Medical History Chronic allergic rhinitis COVID-19 Pneumonia GILBERTO (obstructive sleep apnea) Irregular heart beat Sleep apnea Asthma Surgical History History of section Family History (Updated 11/28/21 @ 15:10 by GABI Boland) Father No problems noted. Mother No problems noted. 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 Physical Exam Vital Signs: BMI result Body Mass Index 30.7 Const Other: Well-nourished well-developed very friendly female awake alert and oriented x3 in no acute distress Extrem Other: Bilateral lower extremity examination shows good capillary refill, no skin lesions noted, normal sensation light touch Left knee examination shows a minimal effusion, mild crepitus with range of motion, negative Lynette's test, no instability Results Reviewed Results Reviewed: MRI of the patient's left knee shows mild diffuse degenerative changes, no obvious meniscus tearing, no ligamentous injury Assessment & Plan Assessment & Plan (1) Osteoarthritis of left knee: Code(s): M17.12 - Unilateral primary osteoarthritis, left knee Category: Medical Plan Ms. Kuldeep Chavez presents with left knee pain due to osteoarthritis. I had a lengthy discussion with the patient regarding the treatment options. She wishes to hold off on surgery if at all possible. I agree with this plan. She has not gotten good relief from cortisone injections in the past. Thus, I will see whether or not her insurance will cover a viscosupplementation injection, such as Durolane. I will see her back once the injection is available. Feel free to call me at any time should questions regarding her orthopedic management arise. I spent 22 minutes in reviewing the patient's records and imaging studies, seeing the patient and documenting in the medical record. Coding Level of Care Code Est Pt Level 3 (37627) Complex EM visit Add On G2211 Diagnoses Osteoarthritis of left knee M17.12
== END 2024-10-14 08:45 | disposition home or self-care (01) ==
PROVIDERS: PCP Internal Medicine; Visit Provider Orthopaedic Surgery
DX: M17.12 Unilateral primary osteoarthritis, left knee (principal)
CPT/HCPCS: 99213

== ENCOUNTER → 2024-10-14 08:25 | Outpatient (BNVA) | payer MEDICAID, SELFPAY | PROVIDERS: PCP Internal Medicine; Visit Provider Orthopaedic Surgery | DX: M17.12 Unilateral primary osteoarthritis, left knee (principal) | CPT/HCPCS: 99212 ==

== ENCOUNTER 2024-10-28 09:11 | Outpatient (AMB) | payer MEDICAID, SELFPAY ==
--- NOTE | 2024-10-28 09:26 | A.OFFVIS_ITS ---
Vital Signs 10/28/24 09:29 Height 5 ft 7 in Weight 196 lb BMI 30.7 Intake Visit Reasons: Left knee pain Intake Note: Aline is a 34 year old female who presents with complaints of progressively worsening left knee pain. She describes her pain as sharp in nature. She has tried Tylenol and anti-inflammatory medicines which gave her minimal relief. The patient was interested in trying a viscosupplementation injection which was denied by her insurance company. Allergies No Known Allergies [No Known Allergies*] Allergy (Verified 10/28/24 09:28) Seasonal Allergies Allergy (Unknown, Uncoded 10/28/24 09:28) itching Medication List - Last Reconciled 10/28/24 by Dominic Landrum MD montelukast 10 mg PO BEDTIME nebulizers As directed [facility] Medical History Chronic allergic rhinitis COVID-19 Pneumonia GILBERTO (obstructive sleep apnea) Irregular heart beat Sleep apnea Asthma Surgical History History of section Family History (Updated 11/28/21 @ 15:10 by GABI Boland) Father No problems noted. Mother No problems noted. 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 Physical Exam Vital Signs: BMI result Body Mass Index 30.7 Const Other: Well-nourished well-developed very friendly female awake alert and oriented x3 in no acute distress Extrem Other: Left knee examination shows a minimal effusion, palpable crepitus with range of motion, pain with range motion, no instability Office Procedures AMB Joint Injection/Aspiration Joint Injection/Aspiration Primary Site: left knee Prep: site was prepped using aseptic technique Injected: 40 mg of, DepoMedrol and 1% plain lidocaine Procedure: The patient tolerated the procedure well Coding 29614 - Large joint Procedure code (CPT) selection complete Results Reviewed Results Reviewed: X-rays of the patient's left knee taken previously show joint space narrowing, subchondral sclerosis, no acute bony abnormalities Assessment & Plan Assessment & Plan (1) Osteoarthritis of left knee: Code(s): M17.12 - Unilateral primary osteoarthritis, left knee Category: Medical (2) Left knee pain: Code(s): M25.562 - Pain in left knee Category: Medical Plan Ms. Kuldeep Chavez presents with left knee pain due to osteoarthritis. I had a lengthy discussion with the patient regarding the treatment options. The risks and benefits of a left knee cortisone injection were discussed at length with the patient. The patient wished to proceed. She tolerated the injection well. She will continue with her activity modifications. She will contact me prior to her follow-up appointment in 3 months should any questions or concerns arise. Feel free to call me at any time should questions regarding her orthopedic management arise. I spent 21 minutes in reviewing the patient's records and imaging studies, seeing the patient and documenting in the medical record. Orders: Orders AMB Joint Injection/Aspiration Today M17.12 - Unilateral primary osteoarthritis, left knee Coding Level of Care Code Est Pt Level 3 (34572) Complex EM visit Add On G2211 Diagnoses Osteoarthritis of left knee M17.12 Left knee pain M25.562 CPT Codes Coding - 77441 Large joint: 99466 - Large joint ([id number])
[2024-10-28 09:29] VITALS: BMI 30.7
--- OUTSIDE RECORDS SUMMARY | 2024-10-28 09:31 | XMS_ITS | Data Portability ---
Author Organization [place] - [facility], Allergy Address [address] [address] Care Team Providers Care Harbor Pilot Name Role Phone ANDREW SOLIS Primary Care Provider Assessment Encounter Date Assessment Date Assessment LastModified by Organization Details LastModified Time 09/14/2024 09/14/2024 Patient reports history of asthma and allergy. Presently being seen by Dr. Balderrama. Flonase had to be stopped because of nasal bleeding. She is now on cetirizine at night. She takes Pulmicort Flexhaler for her asthma and occasional albuterol. She has not needed that for several months. She has been diagnosed with obstructive sleep apnea but cannot tolerate CPAP. She cannot tolerate the mask for multiple reasons. She reports nasal congestion but also difficulty with the straps. She reports having a infection in the occiput from the strap. She had a sleep study a couple years ago. Previous sleep study showed an apnea-hypopnea index of 91 events per hour. This was prior to her undergoing a sleeve gastrectomy. She has since lost 120 pounds. Examination shows 3+ tonsils with an anterior open bite deformity. Moderate turbinate hypertrophy. The septum is relatively straight. There is polypoid degeneration of the left middle turbinate. There is a small amount of residual lymphoid tissue in the nasopharynx. The larynx is normal. I have suggested we try budesonide nasal spray with the opposite hand technique wanting it out towards the side to try to avoid any anterior epistaxis. She can also use saline solution 4 times daily to keep the nose moist. Will arrange for follow-up sleep study. [email or web address] Not available 09/14/2024 13:51:52 Plan of Treatment Reminders Order Date Submit Date Provider Last Modified By Organization Details Last Modified Time Details Appointments None recorde d. Lab None recorde d. Referral None recorde d. Procedures None recorde d. Surgeries None recorde d. Imaging polysom nogram, diagnos tic, 6 yrs or older 2023 024 [facility]), [address], [place], [address], 5 15:26:03 Medication Orders budeson mulugeta 32 mcg/act uation nasal spray 2023 024 [id number], [address] [place], [place], [id number], 4 13:52:27 Patient TargetsNo targets recorded. Patient InstructionsNo instructions recorded. Reason for Referral None Reported. Problems Name Problem SNOMED Code Status Onset Date Resolution Date Notes Provider Name and Address Organization Details Recorded Time Snoring 06937737 Active 2017 Snoring; Note: Date Diagnosed: 06/26/2018 6:17 PM (R06.83) Not Available [facility] 4 03:11:02 Obstructi ve sleep apnea syndrome 28276784 Active 2017 Obstructiv e sleep apnea (adult) (pediatric ); Note: Date Diagnosed: 06/26/2018 6:17 PM (G47.33) Not Available [facility] 4 03:11:02 Allergic rhinitis 53295773 Active 2023 SRINIVASA MARQUEZ MD [address] [facility],[place] [address], [place], [address] , [place] - [facility] 4 13:47:44 Nasal congestio n 20337107 Active 2023 SRINIVASA MARQUEZ MD [address] [facility],[place] [address], [place], [address] , [place] - [facility] 4 13:47:49 Obesity 275524920 Active 2023 SRINIVASA MARQUEZ MD [address], [place], [address] , [facility] - [facility] 13:47:57 Problem Notes None recorded. Procedures Surgical History Date Name Laterality Status Provider Name and Address Organization Details Recorded Time 09/14/20 Fiberoptic Laryngoscopy (Comprehensive) completed SRINIVASA BAH MD [address], [place], [address], [facility] - [facility] 09/14/2024 13:54:10 08/13/20 laparoscopic sleeve gastrectomy completed SRINIVASA BAH MD [address], [place], [address], [facility] - [facility] 09/14/2024 13:47:15 Imaging Results None recorded. Procedure Notes None recorded. Medical Equipment None Reported. Medications Name Sig Start Date Stop Date Status Note LastModified by Organization Details LastModified Time amoxicillin 500 mg capsule 09/14 completed Not Available Not Available Not Available budesonide 32 mcg/actuati on nasal spray Take 1 spray twice a day by nasal route. 2023 active Not Available Not Available Not Avai lable hydrocodone 5 mg-acetamin ophen 325 mg tablet TAKE 1 TABLET BY MOUTH EVERY 6 HOURS NEEDED FOR PAIN 09/14 completed Not Available Not Available Not Available Nystop 100,000 unit/gram topical powder APPLY 1 APPLICATI ON TOPICALLY TWICE DAILY APPLY TO RASHES AND SKIN FOLDS 09/14 completed Not Available Not Available Not Available acetaminoph en 500 mg tablet TAKE 1 TABLET BY MOUTH EVERY 8 HOURS NEEDED FOR MILD OR MODERATE PAIN FOR UP TO 5 DAYS 09/14 completed Not Available Not Available Not Available clotrimazol e-betametha sone 1 %-0.05 % topical cream APPLY TOPICALLY TO THE AFFECTED AREA TWICE DAILY active Not Available Not Available No t Available montelukast 10 mg tablet TAKE 1 TABLET BY MOUTH AT BEDTIME 09/14 completed Not Available Not Available Not Available ibuprofen 600 mg tablet TAKE 1 TABLET BY MOUTH EVERY 6 HOURS NEEDED FOR PAIN 09/14 completed Not Available Not Available Not Available ondansetron 4 mg disintegrat ing tablet DISSOLVE 1 TABLET ON THE TONGUE EVERY 8 HOURS NEEDED FOR NAUSEA OR VOMITING active Not Available Not Available No t Available fluticasone propionate 50 mcg/actuati on nasal spray,suspe nsion SPRAY ONE SPRAY IN EACH NOSTRIL EVERY DAY 09/14 completed Not Available Not Available Not Available clotrimazol e 1 % topical cream APPLY TOPICALLY TWICE DAILY FOR 7 DAYS. APPLY TO RASHES IN SKIN FOLDS 09/14 completed Not Available Not Available Not Available loratadine 10 mg tablet TAKE 1 TABLET BY MOUTH DAILY 09/14 completed Not Available Not Available Not Available amoxicillin 875 mg-potassiu m clavulanate 125 mg tablet TAKE 1 TABLET BY MOUTH TWICE DAILY 09/14 completed Not Available Not Available Not Available chlorhexidi ne gluconate 0.12 % mouthwash 09/14 completed Not Available Not Available Not Available Pulmicort Flexhaler active Not Available Not Available No t Available albuterol 90 mcg-budeson mulugeta 80 mcg/actuati on HFA aerosol inhaler Inhale by inhalatio n route. active Not Available Not Available No t Available Vitals Date Recorded Body height Body mass index (BMI) Body weight Provider Name and Address Organization Details Last Updated DateTime 09/14/2024 170.18 cm 30.5 kg/m2 90448.51 g Josseline Dillon [place] - [facility] 09/14/2024 13:25:55 Social History None recorded. Functional Status None recorded. Mental Status None recorded. Family History Nothing Reported. Medical History Condition Response Allergies/Hayfever N Heart Problems N Anxiety N Tonsil Infections N Emphysema N Migraines N Thyroid Problems N Glaucoma N Depression N COPD N Developmental Delay N Nasal or Sinus Problems Y Anemia N Immune System Disorder N Anesthesia Complications N Heart Attack ([place]) N Other Skin Condition N Diabetes N Rhinitis N Bleeding Disorder N Food Allergy N Arthritis N Hearing Loss N Hyperlipidemia N Cancer N Stroke N Dementia N Nasal polyps N Asthma Y High Cholesterol N Sleep Disorder N GERD/Reflux N Liver Disease N Headaches N Fibromyalgia N Hypertension N Speech Delay N Kidney Disease N Gynecological HistoryNo gynecological history recorded. Obstetrics History GPAL:G 0 P 0 0 0 0 Past Encounters Encounter ID Performer Location Encounter Start Date Encounter Closed Date Diagnosis/Indication Diagnosis SNOMED-CT Code Diagnosis ICD10 Code Diagnosis Note [id number] SRINIVASA MARQUEZ MD [facility] [address] [place] [address] 09/14/2024 13:12:03 09/14/2024 13:57:04 Allergic rhinitis 46970752 J30.9 Nasal congestion 2772167 0 R09.81 Obstructiv e sleep apnea syndrome 51939961 G47.33 There is evidence of moderate tonsil hypertroph y, anterior open bite deformity and moderate tongue position. Depending on the degree of apnea she might benefit from tonsillect sally and reduction of the residual adenoid tissue. Obesity 951891417 E66.9 Health Concerns Section Related Observation LastModified by Organization Detai ls LastModified Time None Recorded Concern Status LastModified by Organization Details LastModified Time None Recorded Advance Directives Directive None Recorded Payers Encounter Date Sequence Insurance Name Policy Number Policy Hickman Covered Member ID Hickman Member ID Guarantor Name 09/14/2024 1 [place] [facility] Aline Chavez [id number] Aline Chavez Notes Date Note Type Note Provider Name and Address Organization Details Recorded Time 09/14/2024 text/html Patient reports history of asthma and allergy. Presently being seen by Dr. Balderrama. Flonase had to be stopped because of nasal bleeding. She is now on cetirizine at night. She takes Pulmicort Flexhaler for her asthma and occasional albuterol. She has not needed that for several months. She has been diagnosed with obstructive sleep apnea but cannot tolerate CPAP. She cannot tolerate the mask for multiple reasons. She reports nasal congestion but also difficulty with the straps. She reports having a infection in the occiput from the strap. She had a sleep study a couple years ago. This was prior to her undergoing a sleeve gastrectomy. She has since lost 120 pounds. SRINIVASA BAH MD [address] [facility],[address], [address], [place] - [facility] 09/14/2024 13:55:27 OBGyn Episode No OBEpisode recorded.
== END 2024-10-28 09:49 | disposition home or self-care (01) ==
PROVIDERS: PCP Internal Medicine; Visit Provider Orthopaedic Surgery
DX: M17.12 Unilateral primary osteoarthritis, left knee (principal); M25.562 Pain in left knee
CPT/HCPCS: 20610; 99213

== ENCOUNTER → 2024-10-28 09:11 | Outpatient (BNVA) | payer MEDICAID, SELFPAY | PROVIDERS: PCP Internal Medicine; Visit Provider Orthopaedic Surgery | DX: M17.12 Unilateral primary osteoarthritis, left knee (principal); M25.562 Pain in left knee | CPT/HCPCS: 20610; 99212; J1010; J2003 ==

== ENCOUNTER 2024-12-28 11:31 | Outpatient (AMB) | payer MEDICAID, SELFPAY ==
--- NOTE | 2024-12-28 11:35 | MHC.OFFVIS ---
Vital Signs 12/28/24 11:38 Height 5 ft 7 in Weight 199 lb BMI 31.2 Handedness Right Intake Visit Reasons: New prob- Left forearm/hand weakness and pain Intake Note: Aline is a 34 year old right hand dominant female who presents today for a new problem visit for evaluation of left forearm and hand weakness and pain. 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 Repetitive lifting exacerbates the pain in her left forearm. She also expresses over use of her phone causes her left hand to fall asleep. Tylenol and ibuprofen does offer her pain relief. Allergies No Known Allergies [No Known Allergies*] Allergy (Verified 12/28/24 11:38) Seasonal Allergies Allergy (Unknown, Uncoded 12/28/24 11:38) itching HPI HPI New prob- Left forearm/hand weakness and pain: Details: Aline is a 34 year old right hand dominant female who presents today for a new problem visit for evaluation of left forearm and hand weakness and pain. 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 Repetitive lifting exacerbates the pain in her left forearm. She also expresses over use of her phone causes her left hand to fall asleep. Tylenol and ibuprofen does offer her pain relief. [facility] Medical History Chronic allergic rhinitis COVID-19 Pneumonia GILBERTO (obstructive sleep apnea) Irregular heart beat Sleep apnea Asthma Surgical History History of section Family History (Updated 11/28/21 @ 15:10 by GABI Boland) Father No problems noted. Mother No problems noted. Social History (Updated 12/28/24 @ 11:39 by GRISELDA Carrera) Household Members: Spouse and Children Alcohol intake: never Patient Tobacco Use Status: Never used Tobacco Current occupational status: employed Current occupation: right handed / [employer] Review of Systems Const All systems reviewed & are unremarkable except as noted in HPI and below Physical Exam Vital Signs: BMI result Body Mass Index 31.2 Extrem Other: Patient's left elbow normal to inspection No erythema, ecchymosis, edema noted No lacerations, abrasions, open areas No evidence of infection Patient reports mild to moderate tenderness to palpation of the lateral epicondyle of the left elbow No tenderness to palpation of the medial epicondyle, olecranon process, radial head, or elsewhere in the left elbow Flexion and extension of the left elbow full and intact Patient is able to pronate and supinate to 90 degrees past neutral without difficulty Positive Cozen's test in the left Distal sensation intact Capillary refill brisk Assessment & Plan Assessment & Plan (1) Lateral epicondylitis of left elbow: Code(s): M77.12 - Lateral epicondylitis, left elbow Category: Medical Plan 1. Lateral epicondylitis left elbow Patient was educated about this condition Patient is educated about the treatment options available At this time, patient was referred to occupational therapy for range of motion and strengthening of the left elbow and treatment of lateral epicondylitis Patient was amenable to this plan Follow-up as needed Orders: Orders OT Evaluation and Treatment Today M77.12 - Lateral epicondylitis, left elbow Coding Level of Care Code New Pt Level 3 (03379) Diagnoses Lateral epicondylitis of left elbow M77.12
[2024-12-28 11:38] VITALS: BMI 31.2
--- OUTSIDE RECORDS SUMMARY | 2024-12-28 13:53 | XMS_ITS | Encounter Summary ---
Author Organization [employer] Address [address] [facility] [address] [place] [address] Care Team Providers Care Cell Changer Name Role Phone Mile Aceves MD Primary Care Provide r Encounter Details Date Type Department Care Team ([facility] st Contact Info) Description 08/06/2024 Orders Only [facility] [address] [place] [address] Priyanka Omalley, DDS [address] [place] [address] Social History Tobacco Use Types Packs/Day Years Used Date Smoking Tobacco: Never Passive Smoke Exposure: Never Smokeless Tobacco: Never Alcohol Use Standard Drinks/Week Comments Never 0 (1 standard drink = 0.6 oz pur e alcohol) Alcohol Answer Date Recorded Frequency of Alcohol Consumption Not on file 01/27/2024 Average Number of Drinks Not on file 024 Frequency of Binge Drinking Not on file 02/2024 Score 0 01/27/2024 Depression Answer Date Recorded Patient Health Questionnaire-9 Score 0 01/27/2024 Patient Health Questionnaire-9 Score 0 01/27/2024 Last PHQ-9: Questionnaire Data Not on file 0 01/27/2024 Housing Stability Answer Date Recorded What is your housing situation today? I have gaye michael 01/27/[address] you li ve. Do you have problems with any of the following? None of the above 01/27/2024 Food Insecurity Answer Date Recorded Within the past 12 months, y ou worried that your food would run out before you got money to buy more: Never True 01/27/2024 Within the past 12 months,th e food you bought just didn't last and you didn't have enough money to get more: Never True 02/2024 Transportation Answer Date Recorded In the past 12 months, has l ack of transportation kept you from medical appts, meetings, work or from getting things needed for daily living? No 01/27/2024 Utilities Answer Date Recorded In the past 12 months, has t he electric, gas, oil or water company threatened to shut off services in your home? No 01/27/2024 Depression Answer Date Recorded Patient Health Questionnaire-2 Score 0 01/27/2024 Comments Unknown Sex and Gender Information Value Date Recorded Sex Assigned at Female 07/23/2022 10:17 AM EDT Legal Sex Female 10:17 AM EDT Gender Identity Female 07/23/2022 10:17 AM EDT Sexual Orientation Straight 07/23/2022 10 :17 AM EDT documented as of this encounter Plan of Treatment Upcoming Encounters Date Type Department Care Team (Late st Contact Info) Description 03/04/2025 10:45 AM EDT Office Visit [facility] [address] [place] [address] Mile Aceves MD [address] [place] [address] documented as of this encounter Visit Diagnoses Not on filedocumented in this encounter Additional Health Concerns Assessment Noted Time PHQ-9 Depression Total Score: 0 01/27/20 24 3:36 PM EDT documented as of this encounter Care Teams Cell Changer Relationship Specialty Start Date End Date Mile Aceves MD [address] [place] [address] PCP - General Family Medicine 09/01/19 documented as of this encounter
--- OUTSIDE RECORDS SUMMARY | 2024-12-28 13:53 | XMS_ITS | Clinical Summary ---
Author Organization [employer] Address [address] [place] [address] 7[address] [place] [address] Care Team Providers Care Studio Sales Associate Name Role Phone Mile Aceves MD Primary Care Provide r Allergies No known active allergies Medications Ventolin HFA 108 (90 Base) MCG/ACT inhaler Inhale 2 puffs every 4 (four) hours if needed. 3 Active budesonide (Pulmicort Flexhaler) 90 MCG/ACT inhaler Inhale 2 puffs every 12 (twelve) hours. 1 Active fluticasone (Flonase) 50 MCG/ACT nasal spray Administer into affected nostril(s). 2 Active budesonide (Pulmicort) 0.25 MG/2ML nebulizer solution Inhale 0.25 mg. 2 Active predniSONE (Deltasone) 20 MG tablet Take 20 mg by mouth in the morning. Active loratadine (Claritin) 10 MG tabletIndicati ons:Seasonal allergies Take 1 tablet (10 mg) by mouth if needed each day for allergies. 30 tablet 2 4 Active fluticasone (Flonase Allergy Relief) 50 MCG/ACT nasal spray Administer 1 spray into each nostril Once per day. Shake gently. Before first use, prime pump. After use, clean tip and replace cap. 16 g 1 4 03/12/20 25 Active Multiple Vitamin (multivitamin) tablet Take 1 tablet by mouth Once per day. Active albuterol (2.5 MG/3ML) 0.083% nebulizer solution Take 3 mL (2.5 mg) by nebulization every 6 (six) hours if needed for wheezing or shortness of breath. 75 mL 1 5 12/12/19 26 Active azithromycin (Zithromax Z-Osmar) 250 MG tablet Take 2 tablets once on day 1, then 1 tablet 1x/day for 4 days. 6 tablet 5 Active predniSONE (Deltasone) 20 MG tablet Take 2 tablets (40 mg) by mouth Once per day for 5 days. 10 tablet 5 12/17/19 25 acetaminophen (Tylenol 8 Hour) 650 MG ER tablet Take 1 tablet (650 mg) by mouth every 8 (eight) hours if needed for mild pain for up to 10 days. Do not crush, chew, or split. 30 tablet 5 12/22/19 25 Active Problems Problem Noted Date Diagnosed Date Rash 09/03/2024 Assessment & Plan (09/03/2024 2:53 PM EST): Likely intertrigo I will prescribed clotrimazole with betamethasone apply BID no longer than 2 weeks Maintain area dry and clean Chronic pain of left knee 09/03/2024 Foot pain, right 08/10/2024 Overview (08/10/2024): Has a prominent metatrsal base that might have been rubbing with shoes recently. Use diclofenac gel bid, soak feet on walrm water/Epson salt Use metatarsal pa Class 1 obesity due to excess calories in adult 01/27/2024 Assessment & Plan (01/27/2024 4:32 PM EDT): Continue tot follow with bariatric specialist and lens coater Seasonal allergies 01/27/2024 Gastroesophageal reflux disease without esophagi tis 07/03/2023 07/03/2023 Asthma 07/03/2023 07/03/2023 Folliculitis 04/08/2023 Assessment & Plan (04/08/2023 4:46 PM EDT): Ordered mupirocin (Bactroban) 2 % ointment. Gave patient gauze pads to place in between the strap of the BiPAP facemask and her scalp in the rear occipital area. RTC PRN if symptoms fail to improve or worsen. Acute maxillary sinusitis 01/17/2023 Assessment & Plan (04/08/2023 4:36 PM EDT): Patient reports one episode last month. She feels like her allergies are controlled. Taking loratadine daily Allergic dermatitis 01/17/2023 Assessment & Plan (04/08/2023 4:45 PM EDT): Patient to apply triamcinolone topically 2 times daily for 14 days. RTC PRN if symptoms fail to improve or worsen. Obstructive sleep apnea syndrome 01/17/2023 Assessment & Plan (07/04/2023 4:37 PM EDT): I advise to use her CPAP every night continue to follow with sleep medicine Assessment & Plan (04/08/2023 4:34 PM EDT): Reports she is using her machine more than 4 hours a night but the strap has caused some folliculitis on the back of her scalp (occipital area) Assessment & Plan (01/17/2023 1:49 PM EDT): Continue to uses BIPAP as prescribed Continue to follow with sleep medicine Severe obesity 01/17/2023 Assessment & Plan (01/17/2023 1:52 PM EDT): Today extensive discussion was done about life style modifications I advise healthy diet (low calorie) and cardiovascular exercise Moderate persistent asthma without complication 01/17/2023 Assessment & Plan (09/03/2024 2:52 PM EST): Stable c/w same interventions Assessment & Plan (01/27/2024 4:32 PM EDT): C/w albuterol PRN Avoid asthma triggers Assessment & Plan (07/04/2023 4:37 PM EDT): Controlled C/w same interventions Assessment & Plan (04/08/2023 3:53 PM EDT): ACT = 21, patient reports feeling controlled. She remarked that if her allergies are controlled her asthma is controlled. Assessment & Plan (01/17/2023 1:49 PM EDT): Follow up with pulmonology likely chronic cough is related to her asthma appointment jan 23 2023 do not miss appointment Health care maintenance 01/17/2023 Morbid obesity 10/09/2018 Assessment & Plan (07/04/2023 4:38 PM EDT): Continue to follow with specialist and lens coater RTC after surgery Assessment & Plan (01/17/2023 1:51 PM EDT): Today extensive discussion was done about life style modifications I advise healthy diet (low calorie) and cardiovascular exercise F/u with bariatric specialist Obesity 06/25/2017 Encounters Date Type Department Care Team Description 12/11/2024 9:20 AM EDT Office Visit [facility] [address] [place] [address] Bull Benjamin MD Influenza-like symptoms (Primary Dx); Acute URI 12/11/2024 Travel 12/04/2024 Population Health Risk Score [facility] [address] [phone] Provider, Population Health Generic 10/09/2024 Orders Only [facility] External Provider, [facility] from Last 3 Months Immunizations Name Administration Dates Next Due Influenza injectable quadrivalent preservative f ree 09/13/2022,06/25/2017 MMR 01/24/2022 Pfizer Covid-19 Vaccine 12+ 02/09/2021 Pneumococcal Conjugate PCV 20 01/27/2024 Tdap 11/27/2021,06/25/2017 Social History Tobacco Use Types Packs/Day Years Used Date Smoking Tobacco: Never Passive Smoke Exposure: Never Smokeless Tobacco: Never Tobacco Cessation:Counseling Given: Not Answered Alcohol Use Standard Drinks/Week Comments Never 0 [...] your housing situation today? I have gaye fernanda 01/27/[address] you li [...] Patient Health Questionnaire-2 Score 0 01/27/2024 Comments No Sex and Gender Information Value Date Recorded Sex Assigned at Female 07/23/2022 10:17 AM EDT Legal Sex Female 10:17 AM EDT Gender Identity Female 07/23/2022 10:17 AM EDT Sexual Orientation Straight 07/23/2022 10 :17 AM EDT Last Filed Vital Signs Vital Sign Reading Time Taken Comments Blood Pressure 128/72 12/11/2024 9:19 AM EDT Pulse 119 12/11/2024 9:19 AM EDT Temperature 38.6 ??C (101.5 ??F) 12/11/2024 9:39 AM E DT Respiratory Rate 19 12/11/2024 9:19 AM EDT Oxygen Saturation 99% 12/11/2024 9:19 AM EDT Inhaled Oxygen Concentration - - Weight 91.3 kg (201 lb 3.2 oz) 12/11/2024 9:19 A M EDT Height 170.2 cm (5' 7 ) 09/03/2024 11:05 AM EST Body Mass Index 31.51 09/03/2024 11:05 AM EST Plan of Treatment Upcoming Encounters Date Type Department Care Team (Late st Contact Info) Description 03/04/2025 10:45 AM EDT Office Visit [facility] [address] [place] [address] Mile Aceves MD [address] [place] [address] Health Maintenance Due Date Last Done Comments HIV Screening 1991 Family Planning (PISQ) 2006 Hepatitis C Screening 2009 Hepatitis B Vaccines (1 of 3 - 19+ 3-dose series) 2010 HPV/Cotest 2021 Cervical Cancer Screening 01/20/2024 Pap Smear 01/20/2024 01/19/2021 COVID-19 Vaccine ( season) 2024 10/10/2021, 03/22/2021, 03/01/2021, Additional history exists Influenza Vaccine (#1) 2024 09/13/2022, 2016 Dental Oral Exam 11/06/2024 05/05/2024, 09/2018, 05/22/2018 Dental Prophylaxis 11/06/2024 05/05/2024, 1 , 05/22/2018 Alcohol/Substance Use Screening 01/26/2025 01/27/2024 Depression Screening 01/26/2025 01/27/2024, 01/27/20 24 SDOH Screening 01/26/2025 01/27/2024 Dental X-Ray: Bitewings 05/06/2025 05/05/20 24, 06/23/2019, 05/22/2018 Tobacco Screening 12/11/2025 12/11/2024 Dental X-Ray: Full Mouth 05/06/2027 024, 06/26/2019, 05/22/2018 Lipid Panel 02/05/2028 02/04/2023 DTaP/Tdap/Td Vaccines (3 - Td or Tdap) 11/28/2031 11/27/2021, 06/25/2017 Zoster Vaccines (1 of 2) 2041 RSV Patients and Patients Aged 60 years or older (1 - 1-dose 75+ series) 2066 Pneumococcal Vaccine: Pediatrics (0 to 5 Years) and At-Risk Patients (6 to 49) Years) Completed 01/27/2024 HIB Vaccines Aged Out No longer eligi ble based on patient's age to complete this topic HPV Vaccines Aged Out No longer eligi ble based on patient's age to complete this topic Hepatitis A Vaccines Aged Out No long er eligible based on patient's age to complete this topic IPV Vaccines Aged Out No longer eligi ble based on patient's age to complete this topic Meningococcal Vaccine Aged Out No wojciech kb eligible based on patient's age to complete this topic RSV under 20 months Aged Out No longe r eligible based on patient's age to complete this topic Rotavirus Vaccines Aged Out No longer eligible based on patient's age to complete this topic Procedures Procedure Name Priority Date/Time Associated Diagnosis Comments POCT INFLUENZA B (ID NOW RAPID MOLECULAR) Routine 12/11/2024 9:44 AM EDT Acute URI POCT INFLUENZA A (ID NOW RAPID MOLECULAR) Routine 12/11/2024 9:44 AM EDT Acute URI POCT RAPID STREP A Routine 12/11/2024 9: 44 AM EDT Acute URI POCT RAPID COVID ANTIGEN Routine 12/11/2024 9:44 AM EDT Acute URI MR KNEE WO CONTRAST LEFT Routine 10/09/2024 4:45 PM EST PROPHYLAXIS - ADULT Routine 05/05/2024 1 0:00 AM EDT Dental calculus Dental plaque INTRAORAL - COMPLETE SERIES OF RADIOGRAPHIC IMAGES Routine 05/05/2024 10:00 AM EDT PERIODIC ORAL EVALUATION - ESTABLISHED PATIENT Routine 05/05/2024 10:00 AM EDT LIPID PANEL, STANDARD Routine 02/04/2023 8:56 AM EDT Health care maintenance THINPREP PAP Routine 01/19/2021 9:00 AM EDT from Last 3 Months or Most Recently Relevant to Health Maintenance Results * Influenza B (ID NOW Rapid Molecular) (12/11/2024 9:44 AM EDT) [facility] Influenza B Negative Negative, Indeterminate [facility] Swab 12/11/2024 9:44 AM EDT us Bull Benjamin MD POINT OF CARE TEST ENTER/EDIT OR DERABLES Final Result Performing Organization Address [facility]/ZIP Co de Phone Number [facility] [address] [place] [phone] * Influenza A (ID NOW Rapid Molecular) (12/11/2024 9:44 AM EDT) [facility] Influenza A Negative Negative, Indeterminate [facility] Swab 12/11/2024 9:44 AM EDT us Bull Benjamin MD POINT OF CARE TEST ENTER/EDIT OR DERABLES Final Result Performing Organization Address [facility] Co de Phone Number [facility] [address] [place] [phone] * POCT Rapid COVID Ag (12/11/2024 9:44 AM EDT) Pathologist [facility] Rapid COVID Ag Negative [facility] Swab 12/11/2024 9:44 AM EDT us Bull Benjamin MD POINT OF CARE TEST ENTER/EDIT OR DERABLES Final Result Performing Organization Address [facility] Co de Phone Number [facility] [address] [place] [phone] * POCT rapid strep A manually resulted (12/11/2024 9:44 AM EDT) Rapid Strep A Screen Negative Negative, None Detected [facility] Swab 12/11/2024 9:44 AM EDT us Bull Benjamin MD POINT OF CARE TEST ENTER/EDIT OR DERABLES Final Result [facility] [address] [place] [phone] * MR Knee w/o Contrast Left (10/09/2024 4:45 PM EST) Anatomical Region Laterality Modality Magnetic Resonan ce 10/09/2024 4:45 PM EST Narrative 10/12/2024 7:36 AM EST ? [facility] ?[address] ?[place] [address] ? Magnetic Resonance Report ? Signed ? Patient: Aline Dixon ?MR#: ?? [id number] ? : 1990 ?Acct:[id number] ? Age/Sex: 34 / F ?ADM Date: 10/09/24 ? Loc: HO.MRI ? Attending Dr: Dominic Landrum MD ? Ordering Physician: Dominic Landrum MD ?? Date of Service: 10/09/24 ?? Procedure(s): MR knee LT wo con ?? Accession Number(s): [id number] ? cc: Mile Aceves MD; Dominic Landrum MD ? EXAMINATION: MRI LEFT KNEE WITHOUT CONTRAST ? HISTORY: S83.242A - Other tear of medial meniscus, current injury, left ?? knee ? COMPARISON: Correlation is made with plain films of the left knee dated ?? 10/08/2024. ? TECHNIQUE: ??Coronal T1 and fat-suppressed proton density, sagittal ?? proton density and fat-suppressed proton density, and axial fat ?? suppressed T2 weighted MR images of the left knee were obtained. ? FINDINGS: ?? Bone marrow signal intensity is mildly heterogeneous which may reflect ?? residual red marrow. No focal abnormality is seen. There is no ?? significant suprapatellar joint effusion. There is no Haywood's cyst. ? The anterior and posterior cruciate ligaments and medial and lateral ?? collateral ligaments are intact. There is a linear focus of increased ?? T2 signal intensity within the medial meniscus which appears to contact ?? the superior joint surface at the meniscal body (series 10, image 16), ?? suggestive of a tear. This is not well visualized on the sagittal ?? images. The lateral meniscus is intact. The patellar and quadriceps ?? tendons and patellar retinacula are unremarkable in appearance. No ?? articular cartilage abnormality is seen. ? MR/MR knee LT wo con ?? IMPRESSION: ?? Possible horizontal tear of the body of the medial meniscus as ?? described. ? Electronically signed by: ??Georgi Negro MD ??10/12/2024 07:33 AM EST ? Dictated By: ?Georgi Negro MD ? Signed By: ?<Electronically signed by Georgi Negro MD in OV> ?10/12/24 0733 ? DD/ 1645 ? TD/TT: 10/09/24 1710 ? Chief Of Party: ? Procedure Note Donahmetter, Image - 10/12/2024 [place] [id number] Magnetic Resonance Report Signed Patient: Aline Dixon DMR#: [id number] : 1990Acct:[id number] Age/Sex: 34 / FADM Date: 10/09/24 Loc: HO.MRI Attending Dr: Dominic Landrum MD Ordering Physician: Dominic Landrum MD Date of Service: 10/09/24 Procedure(s): MR knee LT wo con Accession Number(s): [id number] cc: Mile Aceves MD; Dominic Landrum MD EXAMINATION: MRI LEFT KNEE WITHOUT CONTRAST HISTORY: S83.242A - Other tear of medial meniscus, current injury, left knee COMPARISON: Correlation is made with plain films of the left knee dated 10/08/2024. TECHNIQUE: Coronal T1 and fat-suppressed proton density, sagittal proton density and fat-suppressed proton density, and axial fat suppressed T2 weighted MR images of the left knee were obtained. FINDINGS: Bone marrow signal intensity is mildly heterogeneous which may reflect residual red marrow. No focal abnormality is seen. There is no significant suprapatellar joint effusion. There is no Haywood's cyst. The anterior and posterior cruciate ligaments and medial and lateral collateral ligaments are intact. There is a linear focus of increased T2 signal intensity within the medial meniscus which appears to contact the superior joint surface at the meniscal body (series 10, image 16), suggestive of a tear. This is not well visualized on the sagittal images. The lateral meniscus is intact. The patellar and quadriceps tendons and patellar retinacula are unremarkable in appearance. No articular cartilage abnormality is seen. MR/MR knee LT wo con IMPRESSION: Possible horizontal tear of the body of the medial meniscus as described. Electronically signed by: Georgi Negro MD 10/12/2024 07:33 AM EST Dictated By: Georgi Negro MD Signed By: <Electronically signed by Georgi Negro MD in OV> 10/12/24 0733 DD/ 1645 TD/TT: 10/09/24 1710 Chief Of Party: [facility] External Provider IM MRI PROCEDURES Edited Result - Final * (ABNORMAL) Lipid Panel, Standard (02/04/2023 8:56 AM EDT) Cholesterol, Total 146 <200 mg/dL [facility] HDL Cholesterol 42(L) > OR = 50 mg/dL [facility] [place] [facility] Triglycerides 174(H) <150 mg/dL [facility] [place] [facility] LDL Cholesterol 77 mg/dL (calc) [facility] Comment: Reference range: <100 Desirable range <100 mg/dL for primary prevention; ?? <70 mg/dL for patients with CHD or diabetic patients with > or = 2 CHD risk factors. LDL-C is now calculated using the Cristina calculation, which is a validated novel method providing better accuracy than the Friedewald equation in the estimation of LDL-C. Michael WU et al. REBECAC. 2013;310(19): 2270-2235 (http://education.Visual IQ.PFI Acquisition/faq/SOE723) Chol/HDLC Ratio 3.5 <5.0 (calc) [facility] Non-HDL Cholesterol 104 <130 mg/dL (calc) [facility] Comment: For patients with diabetes plus 1 major ASCVD risk factor, treating to a non-HDL-C goal of <100 mg/dL (LDL-C of <70 mg/dL) is considered a therapeutic option. Blood Venous blood specimen / Unknown 02/04/2023 8:56 AM EDT 02/04/2023 8:57 AM EDT Narrative [facility] - 02/04/2023 10:31 PM EDT FASTING:NO FASTING: NO Mile Powers MD LAB BLOOD ORDERABLES Final Result [address], [place] [phone] [facility] [place] [facility] [address] [place] [phone] * THINPREP PAP (01/19/2021 9:00 AM EDT) Clinical Information: None given [facility] COMMENT SEE COMMENT [facility] Comment: EXPLANATORY NOTE: ? The Pap is a screening test for cervical cancer. It is ?? not a diagnostic test and is subject to false negative ?? and false positive results. It is most reliable when a ?? satisfactory sample, regularly obtained, is submitted ?? with relevant clinical findings and history, and when ?? the Pap result is evaluated along with historic and ?? current clinical information. ?? Master Ocean : SEE COMMENT [facility] Comment: DCR, CT(ASCP) CT screening location: [address] ??[address] Infection Shift in vaginal macho suggestive of bacterial vaginosis. [facility] Interpretation/R esult: Negative for intraepithelial lesion or malignancy. [facility] LMP: NONE GIVEN [facility] Prev. BX: NONE [facility]IV[facility] Prev. PAP: NONE [facility]IVEN [facility] SOURCE: None given [facility] Statement Of Adequacy: SEE COMMENT [facility] Comment: Satisfactory for evaluation. Endocervical/transformation zone component present. Age and/or menstrual status not provided 01/19/2021 9:00 AM EDT us Jeannette Solares CNM LAB PATHOLOGY ORDERABLES Final Result Performing Organization Address City/State/[facility] Co de Phone Number [facility] [address] from Last 3 Months or Most Recently Relevant to Health Maintenance Insurance [facility] C3 DENTAL-[facility] MEDICAID STAND ADULT Care Teams Studio Sales Associate Relationship Specialty Start Date End Date Mile Aceves MD [address] [place] [phone] PCP - General Family Medicine 09/01/19
--- OUTSIDE RECORDS SUMMARY | 2024-12-28 13:53 | XMS_ITS | Encounter Summary ---
Author Organization [employer] Address [address] [place] [address] [address] [place] [address] Care Team Providers Care Public Health Clinical Nurse Specialist Name Role Phone Mile Aceves MD Primary Care Provide r Encounter Details Date Type Department Care Team (Latest Contact Info) Description 06/23/2019 Abstract [facility] CONVERSIONS Dental, Provider, DDS Social History Tobacco Use Types Packs/Day Years Used Date Smoking Tobacco: Never Assessed Comments Unknown Sex and Gender Information Value [...] Description 03/04/2025 10:45 AM EDT Office Visit [facility] [address] [place] [address] Mile Aceves MD [address] [place] [address] documented as of this encounter Visit Diagnoses Not on filedocumented in this encounter Care Teams Public Health Clinical Nurse Specialist Relationship Specialty Start Date End Date Mile Aceves MD [address] [place] [address] PCP - General Family Medicine 09/01/19 documented as of this encounter
== END 2024-12-28 11:49 | disposition home or self-care (01) ==
LOC: HO.HOS 11:32
PROVIDERS: PCP Internal Medicine
DX: M77.12 Lateral epicondylitis, left elbow (principal)
CPT/HCPCS: 99213

== ENCOUNTER → 2024-12-28 11:31 | Outpatient (BNVA) | payer MEDICAID, SELFPAY | PROVIDERS: PCP Internal Medicine | DX: M77.12 Lateral epicondylitis, left elbow (principal) | CPT/HCPCS: 99212 ==

== ENCOUNTER 2025-01-27 09:27 | Outpatient (AMB) | payer MEDICAID, SELFPAY ==
--- NOTE | 2025-01-27 09:30 | A.OFFVIS_ITS ---
Vital Signs 01/27/25 09:35 Height 5 ft 7 in Weight 199 lb BMI 31.2 Intake Visit Reasons: OV- left knee inj follow up, last inj 10/28/24 Intake Note: Aline is a 34 year old female who presents today for follow up of her left knee pain. Patient reports last injection given on 10/28/24 did not provide any relief. She would like to try viscosupplementation injections. The patient was not able to have a viscosupplementation injection at her last appointment because it was denied by her insurance company. Her insurance company mandated that she try a cortisone injection 1st. She did not get any relief from the cortisone injection. She has failed the last 3 months of conservative treatment which has included a home exercise program, physical therapy exercises, Tylenol, anti- inflammatory medicines and a cortisone injection. She wishes to hold off on surgery if at all possible. At this point her left knee pain is interfering with her activities of daily living and her ability to sleep well through the night. Allergies No Known Allergies [No Known Allergies*] Allergy (Verified 01/27/25 09:36) Seasonal Allergies Allergy (Unknown, Uncoded 01/27/25 09:36) itching Medication List - Last Reconciled 01/27/25 by Dominic Landrum MD montelukast 10 mg PO BEDTIME nebulizers As directed [facility] Medical History Chronic allergic rhinitis COVID-19 Pneumonia GILBERTO (obstructive sleep apnea) Irregular heart beat Sleep apnea Asthma Surgical History History of section Family History (Updated 11/28/21 @ 15:10 by GABI Boland) Father No problems noted. Mother No problems noted. Social History (Updated 12/28/24 @ 11:39 by GRISELDA Carrera) Household Members: Spouse and Children Alcohol intake: never Patient Tobacco Use Status: Never used Tobacco Current occupational status: employed Current occupation: right handed / [employer] Physical Exam Vital Signs: BMI result Body Mass Index 31.2 Const Other: Well-nourished well-developed very friendly female awake alert and oriented x3 in no acute distress Extrem Other: Bilateral lower extremity examination shows good capillary refill, no skin lesions noted, normal sensation light touch Left knee examination shows a minimal effusion, mild crepitus with range of motion, negative Lynette's test, discomfort with range of motion, no instability Results Reviewed Results Reviewed: X-rays of the patient's left knee taken previously show joint space narrowing, subchondral sclerosis, no acute bony abnormalities Assessment & Plan Assessment & Plan (1) Osteoarthritis of left knee: Code(s): M17.12 - Unilateral primary osteoarthritis, left knee Category: Medical Plan Ms. Kuldeep Chavez presents with left knee pain due to osteoarthritis. I had a lengthy discussion with the patient regarding the treatment options. She wishes to hold off on surgery if at all possible. I agree with this plan. She did not get relief from the most recent cortisone injection. Thus, I will see if the patient's insurance company will now approve a viscosupplementation injection such as Durolane. I will see her back once the injection is available. Feel free to call me at any time should questions regarding her orthopedic management arise. I spent 21 minutes in reviewing the patient's records and imaging studies, martina hollingsworth the patient and documenting in the medical record. Coding Level of Care Code Est Pt Level 3 (34086) Complex EM visit Add On G2211 Diagnoses Osteoarthritis of left knee M17.12
[2025-01-27 09:35] VITALS: BMI 31.2
== END 2025-01-27 09:42 | disposition home or self-care (01) ==
PROVIDERS: PCP Internal Medicine; Visit Provider Orthopaedic Surgery
DX: M17.12 Unilateral primary osteoarthritis, left knee (principal)
CPT/HCPCS: 99213

== ENCOUNTER → 2025-01-27 09:27 | Outpatient (BNVA) | payer MEDICAID, SELFPAY | PROVIDERS: PCP Internal Medicine; Visit Provider Orthopaedic Surgery | DX: M17.12 Unilateral primary osteoarthritis, left knee (principal) | CPT/HCPCS: 99212 ==

== ENCOUNTER 2025-02-02 09:01 | Outpatient (RCR) | payer MEDICAID, SELFPAY ==
--- NOTE | 2025-01-01 09:53 | MHC.OT.EP ---
[address] [phone] Occupational Therapy Plan of Care Patient Name: Aline Chavez Date of Evaluation: 01/01/25 Diagnosis: L lateral epicondylitis Pain Location: ECRB Pain Score: 5 Pain Scale Used: Numeric (0 - 10) Aggravating Factors: Lifting/ carrying Alleviating Factors: none reported ; trialed icy hot Assessment: Pt is a R hand dominant 34 yr. old female, who is experiencing pain in her L Lateral elbow for a few weeks. 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 She denies any other trauma to her L UE. Pt saw Gamaliel Gonsalezard who referred her to OT therapy. She presents today w/ mild swelling, a weak hand benefits director, and pain w/ palpation of her ECRB and lateral epicondyle, as well as a positive Cozens test. Pt would benefit from skilled OT therapy to address these deficits and increase the functional use of her L UE Frequency and Duration: The patient will be seen 2xs a week for 4 weeks Short Term Goals: Pt will adhere to HEP Pt will adhere to restrictions - no repetitive gripping/ heavy lifting Pt will report 2/10 pain w/ activity Office Workforce Planner Goals: Pt will increase L hand benefits director to 50 lbs pain free Pt will report increased ability to carry shopping bags w/ L UE pain free Treatment Plan: Therapeutic Exercise Therapeutic Activity Home Exercise Program Splinting Neuro Re-ed Patient Education Desensitization/Sensory Re-ed Edema Control ADL Training Ultrasound NMES Iontophoresis Paraffin MHP Cold Packs Joint Mobilization Soft Tissue Mobilization Kinesiotaping Other (see comments) Electronically Signed By: Virgie Mccloud OTR/L Please Sign and return to therapist. Thank you once again for your referral.
--- NOTE | 2025-02-02 09:31 | MHC.OT.DC ---
[address] [phone] F: [phone] Occupational Therapy Discharge Note Patient Name: Aline Chavez Provider: Gamaliel Jackson Diagnosis: L lateral epicondylitis Date of Surgery: Date of Evaluation: 01/01/25 Date of Discharge: Treatments to Date: 8 Cancellations to Date: No Shows to Date: Discharge Status: Achieved Goals Improved Function Discharge Summary: Pt reported a decrease of overall pain; she is OK for d/charge we reviewed modifications of behaviors as well as HEP to continue progress at home Pt has met her GOALS Electronically Signed By: Virgie Mccloud OTR/L Reviewed/agree with student documentation: Therapist: Please Sign and return to therapist, thank you for your referral.
== END 2025-02-02 12:57 | disposition home or self-care (01) ==
LOC: HO.OT 09:01
PROVIDERS: PCP Internal Medicine
DX: M77.12 Lateral epicondylitis, left elbow (principal)
CPT/HCPCS: 97035; 97110; 97112; 97140; 97165; 97535

== ENCOUNTER 2025-02-18 15:11 | Outpatient (AMB) | payer MEDICAID, SELFPAY ==
--- OUTSIDE RECORDS SUMMARY | 2025-02-18 15:14 | XMS_ITS | Encounter Summary ---
Author Organization [employer] Address [address] [place] [address] [address] [place] [address] Care Team Providers Care Sourcing Manager Name Role Phone Mile Aceves MD Primary Care Provide r Encounter Details Date Type Department Care Team (Latest Contact Info) Description 06/23/2019 Abstract [facility] CONVERSIONS Dental, Provider, DDS Social History Tobacco [...] Care Team (Late st Contact Info) Description 03/29/2025 10:15 AM EDT Office Visit [facility] MEDICINE [address] [place] [address] Mile Aceves MD [address] [place] [address] documented as of this encounter Visit Diagnoses Not on filedocumented in this encounter Care Teams Sourcing Manager Relationship Specialty Start Date End Date Mile Aceves MD [address] [place], [place] [phone] PCP - General Family Medicine 09/01/19 documented as of this encounter
[2025-02-18 15:16] VITALS: BMI 31.2
--- NOTE | 2025-02-18 15:16 | MHC.OFFVIS ---
Vital Signs 02/18/25 15:16 Height 5 ft 7 in Weight 199 lb BMI 31.2 Intake Visit Reasons: Inj-Left Knee Euflexxa #1 Intake Note: Aline is a 34 year old female who presents today for her first dose of left knee Euflexxa gel injection. She describes her left knee pain as sharp in nature. She has tried cortisone injections which gave her minimal relief. She has also tried Tylenol, anti-inflammatory medicines and physical therapy exercises. She wishes to hold off on surgery for as long as possible. Allergies No Known Allergies [No Known Allergies*] Allergy (Verified 02/18/25 15:16) Seasonal Allergies Allergy (Unknown, Uncoded 02/18/25 15:16) itching Medication List - Last Reconciled 02/20/25 by Dominic Landrum MD montelukast 10 mg PO BEDTIME nebulizers As directed [facility] Medical History Chronic allergic rhinitis COVID-19 Pneumonia GILBERTO (obstructive sleep apnea) Irregular heart beat Sleep apnea Asthma Surgical History History of section Family History (Updated 11/28/21 @ 15:10 by GABI Bloand) Father No problems noted. Mother No problems noted. Social History (Updated 12/28/24 @ 11:39 by GRISELDA Carrera) Household Members: Spouse and Children Alcohol intake: never Patient Tobacco Use Status: Never used Tobacco Current occupational status: employed Current occupation: right handed / [employer] Physical Exam Vital Signs: BMI result Body Mass Index 31.2 Const Other: Well-nourished well-developed very friendly female awake alert and oriented x3 in no acute distress Extrem Other: Bilateral lower extremity examination shows good capillary refill, no skin lesions noted, normal sensation light touch Left knee examination shows a mild effusion, palpable crepitus with range of motion, pain with range of motion, no instability Office Procedures AMB Joint Injection/Aspiration Joint Injection/Aspiration Primary Site: left knee Prep: site was prepped using aseptic technique Injected: 20 mg of (Euflexxa viscosupplementation) and 1% plain lidocaine Procedure: The patient tolerated the procedure well Coding 05182 - Large joint Procedure code (CPT) selection complete Results Reviewed Results Reviewed: X-rays of the patient's left knee show joint space narrowing, subchondral sclerosis, no acute bony abnormalities Assessment & Plan Assessment & Plan (1) Osteoarthritis of left knee: Code(s): M17.12 - Unilateral primary osteoarthritis, left knee Category: Medical Plan Ms. Kuldeep Chavez presents with left knee pain due to osteoarthritis. The risks and benefits of a series of 3 Euflexxa viscosupplementation injections were discussed at length with the patient. The patient wished to proceed. She tolerated the 1st injection well. She will follow up next week as scheduled. Feel free to call me at any time should questions regarding her orthopedic management arise. I spent 20 minutes in reviewing the patient's records and imaging studies, seeing the patient and documenting in the medical record. Orders: Orders AMB Joint Injection/Aspiration 02/18/25 M17.12 - Unilateral primary osteoarthritis, left knee Coding Level of Care Code Est Pt Level 3 (86313) Complex EM visit Add On G2211 Diagnoses Osteoarthritis of left knee M17.12 CPT Codes Coding - 63860 Large joint: 43165 - Large joint ([id number])
== END 2025-02-18 15:36 | disposition home or self-care (01) ==
LOC: HO.HOS 15:12
PROVIDERS: PCP Internal Medicine; Visit Provider Orthopaedic Surgery
DX: M17.12 Unilateral primary osteoarthritis, left knee (principal)
CPT/HCPCS: 20610; 99213

== ENCOUNTER → 2025-02-18 15:11 | Outpatient (BNVA) | payer MEDICAID, SELFPAY | PROVIDERS: PCP Internal Medicine; Visit Provider Orthopaedic Surgery | DX: M17.12 Unilateral primary osteoarthritis, left knee (principal) | CPT/HCPCS: 20610; 99212; J2003; J7323 ==

== ENCOUNTER 2025-02-24 14:49 | Outpatient (AMB) | payer MEDICAID, SELFPAY ==
--- OUTSIDE RECORDS SUMMARY | 2025-02-24 14:53 | XMS_ITS | Encounter Summary ---
Author Organization [employer] Address [address] [place] [address] [address] [place] [address] Care Team Providers Care Paper Machine Operator Name Role Phone Mile Aceves MD Primary Care Provide r Encounter Details Date Type Department Care Team (Latest Contact Info) Description 06/23/2019 Abstract [facility] CONVERSIONS Dental, Provider, DDS Social History Tobacco [...] Description 03/29/2025 10:15 AM EDT Office Visit [facility] MEDICINE [address] [place] [address] Mile Aceves MD [address] [place] [address] documented as of this encounter Visit Diagnoses Not on filedocumented in this encounter Care Teams Paper Machine Operator Relationship Specialty Start Date End Date Mile Aceves MD [address] [place], [place] [phone] PCP - General Family Medicine 09/01/19 documented as of this encounter
[2025-02-24 14:58] VITALS: BMI 31.2
--- NOTE | 2025-02-24 14:58 | MHC.OFFVIS ---
Vital Signs 02/24/25 14:58 Height 5 ft 7 in Weight 199 lb BMI 31.2 Intake Visit Reasons: Inj-Left Knee Euflexxa #2 Intake Note: Aline is a 34 year old female who presents today for her first dose of left knee Euflexxa gel injections. The patient states that she got mild relief from the 1st injection. She continues with her home exercise program. Allergies No Known Allergies [No Known Allergies*] Allergy (Verified 02/24/25 14:58) Seasonal Allergies Allergy (Unknown, Uncoded 02/24/25 14:58) itching Medication List - Last Reconciled 02/24/25 by Dominic Landrum MD montelukast 10 mg PO BEDTIME nebulizers As directed [facility] Medical History Chronic allergic rhinitis COVID-19 Pneumonia GILBERTO (obstructive sleep apnea) Irregular heart beat Sleep apnea Asthma Surgical History History of section Family History (Updated 11/28/21 @ 15:10 by GABI Boland) Father No problems noted. Mother No problems noted. Social History (Updated 12/28/24 @ 11:39 by GRISELDA Carrera) Household Members: Spouse and Children Alcohol intake: never Patient Tobacco Use Status: Never used Tobacco Current occupational status: employed Current occupation: right handed / [employer] Physical Exam Vital Signs: BMI result Body Mass Index 31.2 Extrem Other: Left knee examination shows a minimal effusion, palpable crepitus with range of motion, pain with range of motion, no instability Office Procedures AMB Joint Injection/Aspiration Joint Injection/Aspiration Primary Site: left knee Prep: site was prepped using aseptic technique Injected: 20 mg of (Euflexxa viscosupplementation) and 1% plain lidocaine Procedure: The patient tolerated the procedure well Coding 40972 - Large joint Procedure code (CPT) selection complete Results Reviewed Results Reviewed: X-rays of the patient's left knee show joint space narrowing, subchondral sclerosis, no acute bony abnormalities Assessment & Plan Assessment & Plan (1) Osteoarthritis of left knee: Code(s): M17.12 - Unilateral primary osteoarthritis, left knee Category: Medical Plan Ms. Kuldeep Chavez presents with left knee pain due to osteoarthritis. The risks and benefits of a 2nd Euflexxa viscosupplementation injection were discussed at length with the patient. The patient wished to proceed. She tolerated the injection well. She will continue with her home exercise program. She will follow up next week as scheduled. Orders: Orders AMB Joint Injection/Aspiration Today M17.12 - Unilateral primary osteoarthritis, left knee Coding Level of Care Code Procedure Only Diagnoses Osteoarthritis of left knee M17.12 CPT Codes Coding - 42465 Large joint: 12770 - Large joint ([id number])
== END 2025-02-24 15:17 | disposition home or self-care (01) ==
LOC: HO.HOS 14:49
PROVIDERS: PCP Internal Medicine; Visit Provider Orthopaedic Surgery
DX: M17.12 Unilateral primary osteoarthritis, left knee (principal)
CPT/HCPCS: 20610

== ENCOUNTER → 2025-02-24 14:49 | Outpatient (BNVA) | payer MEDICAID, SELFPAY | PROVIDERS: PCP Internal Medicine; Visit Provider Orthopaedic Surgery | DX: M17.12 Unilateral primary osteoarthritis, left knee (principal) | CPT/HCPCS: 20610; J2003; J7323 ==

== ENCOUNTER 2025-03-03 14:35 | Outpatient (AMB) | payer MEDICAID, SELFPAY ==
[2025-03-03 14:41] VITALS: BMI 31.2
--- NOTE | 2025-03-03 14:41 | A.OFFVIS_ITS ---
Vital Signs 03/03/25 14:41 Height 5 ft 7 in Weight 199 lb BMI 31.2 Intake Visit Reasons: Inj-Left Knee Euflexxa #3 Intake Note: Aline is a 34 year old female who presents today for her third dose of left knee Euflexxa injections. She states that she has gotten mild relief from the 1st 2 injections. She continues with her home exercise program. Allergies No Known Allergies [No Known Allergies*] Allergy (Verified 03/03/25 14:41) Seasonal Allergies Allergy (Unknown, Uncoded 03/03/25 14:41) itching Medication List - Last Reconciled 03/03/25 by Dominic Landrum MD montelukast 10 mg PO BEDTIME nebulizers As directed [facility] Medical History Chronic allergic rhinitis COVID-19 Pneumonia GILBERTO (obstructive sleep apnea) Irregular heart beat Sleep apnea Asthma Surgical History History of section Family History (Updated 11/28/21 @ 15:10 by GABI Boland) Father No problems noted. Mother No problems noted. Social History (Updated 12/28/24 @ 11:39 by GRISELDA Carrera) Household Members: Spouse and Children Alcohol intake: never Patient Tobacco Use Status: Never used Tobacco Current occupational status: employed Current occupation: right handed / [employer] Physical Exam Vital Signs: BMI result Body Mass Index 31.2 Extrem Other: Left knee examination shows a minimal effusion, palpable crepitus with range of motion, pain with range of motion, no instability Office Procedures AMB Joint Injection/Aspiration Joint Injection/Aspiration Primary Site: left knee Prep: site was prepped using aseptic technique Injected: 20 mg of (Euflexxa viscosupplementation) and 1% plain lidocaine Procedure: The patient tolerated the procedure well Coding 32714 - Large joint Procedure code (CPT) selection complete Results Reviewed Results Reviewed: X-rays of the patient's left knee taken previously show joint space narrowing, subchondral sclerosis, no acute bony abnormalities Assessment & Plan Assessment & Plan (1) Osteoarthritis of left knee: Code(s): M17.12 - Unilateral primary osteoarthritis, left knee Category: Medical Plan Ms. Kuldeep Chavez presents with left knee pain due to osteoarthritis. The risks and benefits of a 3rd Euflexxa viscosupplementation injection were discussed at length with the patient. The patient wished to proceed. She tolerated the injection well. She will continue with her home exercise program. She will contact me prior to her follow-up appointment in 3 months should any questions or concerns arise. Feel free to call me at any time should questions regarding her orthopedic management arise. Orders: Orders AMB Joint Injection/Aspiration Today M17.12 - Unilateral primary osteoarthritis, left knee Coding Level of Care Code Procedure Only Diagnoses Osteoarthritis of left knee M17.12 CPT Codes Coding - 50027 Large joint: 54199 - Large joint ([id number])
--- OUTSIDE RECORDS SUMMARY | 2025-03-03 16:45 | XMS_ITS | Encounter Summary ---
Author Organization [employer] Address [address] [place] [address] [address] [place] [address] Care Team Providers Care Drill Grinder Name Role Phone Mile Aceves MD Primary Care Provide r Encounter Details Date Type Department Care Team (Latest Contact Info) Description 06/23/2019 Abstract [facility] CONVERSIONS Dental, Provider, DDS Social History Tobacco [...] Description 03/29/2025 10:15 AM EDT Office Visit [facility] MEDICINE [address] [place] [address] Mile Aceves MD [address] [place] [address] documented as of this encounter Visit Diagnoses Not on filedocumented in this encounter Care Teams Drill Grinder Relationship Specialty Start Date End Date Mile Aceves MD [address] [place], [place] [phone] PCP - General Family Medicine 09/01/19 documented as of this encounter
== END 2025-03-03 14:49 | disposition home or self-care (01) ==
LOC: HO.HOS 14:35
PROVIDERS: PCP Internal Medicine; Visit Provider Orthopaedic Surgery
DX: M17.12 Unilateral primary osteoarthritis, left knee (principal)
CPT/HCPCS: 20610

== ENCOUNTER → 2025-03-03 14:35 | Outpatient (BNVA) | payer MEDICAID, SELFPAY | PROVIDERS: PCP Internal Medicine; Visit Provider Orthopaedic Surgery | DX: M17.12 Unilateral primary osteoarthritis, left knee (principal) | CPT/HCPCS: 20610; J2003; J7323 ==

== ENCOUNTER 2025-04-03 09:02 | Outpatient (REF) | payer MEDICAID, SELFPAY ==
[2025-04-03 10:24] LABS: Anion Gap 9 (12-20); Blood Urea Nitrogen 12 mg/dL (9-16); Calcium 8.7 mg/dL (8.4-10.2); Carbon Dioxide 26 mmol/L (22-29); Chloride 108 mmol/L (96-108); Cholesterol 160 mg/dL (<200); Estimated Glomerular Filt Rate > 60; HDL Cholesterol 44 mg/dL (>40); Potassium 4.3 mmol/L (3.3-5.1); Sodium 139 mmol/L (135-145); Triglycerides 98 mg/dL (<150)
== END 2025-04-03 09:03 | disposition home or self-care (01) ==
LOC: HO.LAB 09:02
PROVIDERS: PCP Internal Medicine; Visit Provider Internal Medicine
DX: Z01.818 Encounter for other preprocedural examination (principal)
CPT/HCPCS: 36415; 80048; 80061

== ENCOUNTER 2025-06-01 10:39 | Outpatient (REF) | payer MEDICAID, SELFPAY ==
--- NOTE | ~2025-06-01 | XR_ITS ---
EXAMINATION: XR KNEE, LEFT CLINICAL INFORMATION: left distal lateral knee injury COMPARISON: October 08, 2024 TECHNIQUE: AP oblique and lateral views of the left knee. FINDINGS: No acute cortical disruption or malalignment. No lytic or blastic lesions. No gross suprapatellar bursa joint effusion. Skin fold overlapping the proximal tibia on a single AP projection XR/XR knee LT 4V IMPRESSION: No acute fracture or dislocation. Electronically signed by: Roly Ron MD 06/01/2025 11:31 AM EDT
--- NOTE | ~2025-06-01 | XR_ITS ---
EXAMINATION: XR ANKLE, LEFT CLINICAL INFORMATION: left lateral ankle injury COMPARISON: None available. TECHNIQUE: AP, lateral, and mortise views of the left ankle. FINDINGS: No acute cortical disruption or malalignment. No lytic or blastic lesions. Soft tissue fullness, lateral malleolus. No subcutaneous emphysema. Questionable small joint effusion, anterior tibiotarsal bursa. Small exostosis at the Achilles tendon insertion. No plantar calcaneus spur. XR/XR ankle LT min 3V IMPRESSION: Questionable small joint effusion, anterior tibiotarsal bursa. Small soft tissue contusion, lateral malleolus. Enthesopathy, Achilles tendon. No acute fracture or dislocation. Electronically signed by: Roly Ron MD 06/01/2025 11:28 AM EDT
--- OUTSIDE RECORDS SUMMARY | 2025-06-01 10:00 | XMS_ITS | Encounter Summary ---
Author Organization [employer] Address [address] [facility] [address]t [place] [address] Care Team Providers Care Greenhouse Staff Name Role Phone Mile Aceves MD Primary Care Provide r Reason for Visit * Reason Comments Foot Pain Encounter Details Date Type Department Care Team (Late st Contact Info) Description 06/01/2025 10:00 AM EDT Office Visit [facility] WALK-IN [address] [address] Acute left ankle pain (Primary Dx); Injury of left ankle, initial encounter; Injury of left knee, initial encounter Social History Tobacco Use Types Packs/Day Years [...] AM EDT documented as of this encounter Last Filed Vital Signs Vital Sign Reading Time Taken Comments Blood Pressure 123/72 06/01/2025 10:02 AM EDT Pulse 73 06/01/2025 10:02 AM EDT Temperature 36.6 C (97.8 F) 06/01/2025 10:02 AM EDT Respiratory Rate 18 06/01/2025 10:02 AM EDT Oxygen Saturation 98% 06/01/2025 10:02 AM EDT Inhaled Oxygen Concentration - - Weight 94.2 kg (207 lb 9.6 oz) 06/01/2025 10:02 AM EDT Height - - Body Mass Index 32.51 03/29/2025 10:20 AM EDT documented in this encounter Plan of Treatment Upcoming Encounters Date Type Department Care Team (Late st Contact Info) Description 06/03/2025 10:00 AM EDT Office Visit [facility] MEDICINE [address] [place] [address] Mile Aceves MD [address] [place] [address] documented as of this encounter Procedures Procedure Name Priority Date/Time Associated Diagnosis Comments XR KNEE 4+ VIEWS LEFT Routine 06/01/2025 11:23 AM EDT Injury of left knee, initial encounter XR ANKLE 3+ VIEWS LEFT Routine 06/01/2025 11:01 AM EDT Acute left ankle pain Injury of left ankle, initial encounter documented in this encounter Results * XR Knee 4+ Views Left (06/01/2025 11:23 AM EDT) Anatomical Region Laterality Modality Lower Extremities, Knee Left Radiogra phic Imaging 06/01/2025 11:2 3 AM EDT Narrative 06/01/2025 11:33 AM EDT [address] [address] XRay Report Signed Patient: Aline Dixon MR#: [id number] : 1990 Acct:[id number] Age/Sex: 35 / F ADM Date: 06/01/25 [facility] Att[facility] Dr: Bull Benjamin MD Ordering Physician: BULL BENJAMIN MD Date of Service: 06/01/25 Procedure(s): XR knee LT 4V Accession Number(s): [id number] cc: BULL BENJAMIN MD Reason for Exam: left distal lateral knee injury EXAMINATION: XR KNEE, LEFT CLINICAL INFORMATION: left distal lateral knee injury COMPARISON: October 08, 2024 TECHNIQUE: AP oblique and lateral views of the left knee. FINDINGS: No acute cortical disruption or malalignment. No lytic or blastic lesions. No gross suprapatellar bursa joint effusion. Skin fold overlapping the proximal tibia on a single AP projection XR/XR knee LT 4V IMPRESSION: No acute fracture or dislocation. Electronically signed by: Roly Ron MD 06/01/2025 11:31 AM EDT Dictated By: Roly Amador MD Signed By: <Electronically signed by Roly Navarrete MD in OV> 06/01/25 1131 DD/ 1123 TD/TT: 06/01/25 1124 Mathematics Improvement Teacher: Procedure Note Donotuseinterpreter, Image - 06/01/[address] [address] XRay Report Signed Patient: Aline Dixon DMR#: [id number] : 1990Acct:[id number] Age/Sex: 35 / FADM Date: 06/01/25 Loc: HO.CX Attending Dr: Bull Benjamin MD Ordering Physician: BULL BENJAMIN MD Date of Service: 06/01/25 Procedure(s): XR knee LT 4V Accession Number(s): [id number] cc: BULL BENJAMIN MD Reason for Exam: left distal lateral knee injury EXAMINATION: XR KNEE, LEFT CLINICAL INFORMATION: left distal lateral knee injury COMPARISON: October 08, 2024 TECHNIQUE: AP oblique and lateral views of the left knee. FINDINGS: No acute cortical disruption or malalignment. No lytic or blastic lesions. No gross suprapatellar bursa joint effusion. Skin fold overlapping the proximal tibia on a single AP projection XR/XR knee LT 4V IMPRESSION: No acute fracture or dislocation. Electronically signed by: Roly Ron MD 06/01/2025 11:31 AM EDT Dictated By: Roly Amador MD Signed By: <Electronically signed by Roly Navarrete MDin OV> 06/01/25 1131 DD/ 1123 TD/TT: 06/01/25 1124 Mathematics Improvement Teacher: Bull Benjamin MD IMG XR PROCEDURES Edited Result - Final * XR Ankle 3+ Views Left (06/01/2025 11:01 AM EDT) Anatomical Region Laterality Modality Lower Extremities, Ankle Left Radiogr aphic Imaging 06/01/2025 11:0 1 AM EDT Narrative 06/01/2025 11:32 AM EDT [address] [address] XRay Report Signed Patient: Aline Dixon MR#: [id number] : 1990 Acct:[id number] Age/Sex: 35 / F ADM Date: 06/01/25 Loc: [facility] Attending Dr: Bull Benjamin MD Ordering Physician: BULL BENJAMIN MD Date of Service: 06/01/25 Procedure(s): XR ankle LT min 3V Accession Number(s): [id number] cc: BULL BENJAMIN MD Reason for Exam: left lateral ankle injury EXAMINATION: XR ANKLE, LEFT CLINICAL INFORMATION: left lateral ankle injury COMPARISON: None available. TECHNIQUE: AP, lateral, and mortise views of the left ankle. FINDINGS: No acute cortical disruption or malalignment. No lytic or blastic lesions. Soft tissue fullness, lateral malleolus. No subcutaneous emphysema. Questionable small joint effusion, anterior tibiotarsal bursa. Small exostosis at the Achilles tendon insertion. No plantar calcaneus spur. XR/XR ankle LT min 3V IMPRESSION: Questionable small joint effusion, anterior tibiotarsal bursa. Small soft tissue contusion, lateral malleolus. Enthesopathy, Achilles tendon. No acute fracture or dislocation. Electronically signed by: Roly Ron MD 06/01/2025 11:28 AM EDT Dictated By: Roly Amador MD Signed By: <Electronically signed by Roly Navarrete MD in OV> 06/01/25 1128 DD/ 1101 TD/TT: 06/01/25 1124 Mathematics Improvement Teacher: Procedure Note Donotuseinterpreter, Image - 06/01/2025 [place] [address] XRay Report Signed Patient: Aline Dixon DMR#: [id number] : 1990Acct:[id number] Age/Sex: 35 / FADM Date: 06/01/25 Loc: [facility] Attending Dr: Bull Benjamin MD Ordering Physician: BULL BENJAMIN MD Date of Service: 06/01/25 Procedure(s): XR ankle LT min 3V Accession Number(s): [id number] cc: BULL BENJAMIN MD Reason for Exam: left lateral ankle injury EXAMINATION: XR ANKLE, LEFT CLINICAL INFORMATION: left lateral ankle injury COMPARISON: None available. TECHNIQUE: AP, lateral, and mortise views of the left ankle. FINDINGS: No acute cortical disruption or malalignment. No lytic or blastic lesions. Soft tissue fullness, lateral malleolus. No subcutaneous emphysema. Questionable small joint effusion, anterior tibiotarsal bursa. Small exostosis at the Achilles tendon insertion. No plantar calcaneus spur. XR/XR ankle LT min 3V IMPRESSION: Questionable small joint effusion, anterior tibiotarsal bursa. Small soft tissue contusion, lateral malleolus. Enthesopathy, Achilles tendon. No acute fracture or dislocation. Electronically signed by: Roly Ron MD 06/01/2025 11:28 AM EDT RP Dictated By: Roly Amador MD Signed By: <Electronically signed by Roly Navarrete MDin OV> 06/01/25 1128 DD/ 1101 TD/TT: 06/01/25 1124 Mathematics Improvement Teacher: Bull Benjamin MD IMG XR PROCEDURES Edited Result - Final documented in this encounter Visit Diagnoses Diagnosis Acute left ankle pain- Primary Injury of left ankle, initial encounter Injury of left knee, initial encounter documented in this encounter Additional Health Concerns Assessment Noted Time PHQ-9 Depression Total Score: 0 01/27/20 24 3:36 PM EDT documented as of this encounter Care Teams Greenhouse Staff Relationship Specialty Start Date End Date Mile Aceves MD [address] [place] [address] PCP - General Family Medicine 09/01/19 documented as of this encounter
--- OUTSIDE RECORDS SUMMARY | 2025-06-01 12:34 | XMS_ITS | Clinical Summary ---
Author Organization [employer] Address [address] [place] [address] 7[address] [place] [address] Care Team Providers Care Rx Specialist Name Role Phone Mile Aceves MD Primary Care Provide r Allergies No known active allergies Medications Ventolin HFA 108 (90 Base) MCG/ACT inhaler Inhale 2 puffs every 4 (four) hours if needed. 10/14/19 23 Active budesonide (Pulmicort Flexhaler) 90 MCG/ACT inhaler Inhale 2 puffs every 12 (twelve) hours. 07/10/20 21 Active fluticasone (Flonase) 50 MCG/ACT nasal spray Administer into affected nostril(s). 01/09/20 22 Active budesonide (Pulmicort) 0.25 MG/2ML nebulizer solution Inhale 0.25 mg. 01/09/20 22 Active predniSONE (Deltasone) 20 MG tablet Take 20 mg by mouth in the morning. Active loratadine (Claritin) 10 MG tabletIndicati ons:Seasonal allergies Take 1 tablet (10 mg) by mouth if needed each day for allergies. 30 tablet 2 01/27/20 24 Active fluticasone (Flonase Allergy Relief) 50 MCG/ACT nasal spray Administer 1 spray into each nostril Once per day. Shake gently. Before first use, prime pump. After use, clean tip and replace cap. 16 g 1 03/12/20 24 Active Multiple Vitamin (multivitamin) tablet Take 1 tablet by mouth Once per day. Active albuterol (2.5 MG/3ML) 0.083% nebulizer solution Take 3 mL (2.5 mg) by nebulization every 6 (six) hours if needed for wheezing or shortness of breath. 75 mL 1 12/12/19 25 2025 Active azithromycin (Zithromax Z-Osmar) 250 MG tablet Take 2 tablets once on day 1, then 1 tablet 1x/day for 4 days. 6 tablet 12/12/19 25 Active clobetasol (Temovate) 0.05 % creamIndicatio ns:Rash Apply topically 2 times daily. 45 g 1 01/13/20 25 Active hydrOXYzine HCl (Atarax) 25 MG tabletIndicati ons:Rash Take 1 tablet (25 mg) by mouth 4 times daily. 30 tablet 01/13/20 25 Active phentermine 15 MG capsuleIndicat ions:Class 1 obesity due to excess calories with serious comorbidity and body mass index (BMI) of 31.0 to 31.9 in adult TAKE 1 CAPSULE(15 MG) BY MOUTH BEFORE BREAKFAST 30 capsule 05/31/20 25 Active acetaminophen (Tylenol 8 Hour) 650 MG ER tablet Take 2 tablets (1,300 mg) by mouth every 8 (eight) hours if needed for moderate pain. Do not crush, chew, or split. 30 tablet 06/01/20 25 Active ibuprofen 400 MG tablet Take 1 tablet (400 mg) by mouth every 6 (six) hours if needed for moderate pain or fever for up to 30 doses. 30 tablet 06/01/20 25 Active lidocaine (Lidoderm) 5 % patch Apply 1 patch topically Once per day. Remove & discard patch within 12 hours or as directed by MD. 30 patch 2 06/01/20 25 2025 Active acetaminophen (Tylenol 8 Hour) 650 MG ER tablet Take 1 tablet (650 mg) by mouth every 8 (eight) hours if needed for mild pain for up to 10 days. Do not crush, chew, or split. 30 tablet 12/12/19 25 2024 Discontinued phentermine 15 MG capsuleIndicat ions:Class 1 obesity due to excess calories with serious comorbidity and body mass index (BMI) of 31.0 to 31.9 in adult Take 1 capsule (15 mg) by mouth before breakfast. 30 capsule 04/01/20 25 2024 Discontinued acetaminophen (Tylenol 8 Hour) 650 MG ER tablet TAKE 1 TABLET(650 MG) BY MOUTH EVERY 8 HOURS FOR UP TO 10 DAYS NEEDED FOR MILD PAIN. DO NOT CRUSH, CHEW, OR SPLIT 30 tablet 05/03/20 25 2024 Discontinued(R eorder (will not trigger notification to Pharmacy)) Active Problems Problem Noted Date Diagnosed Date Preop examination 03/29/2025 Assessment & Plan (03/29/2025 12:18 PM EDT): RCRI score is 0 which means at 3.9% of risk I advised n.p.o. after midnight before the procedure Surgery should proceed to schedule EKG done at office is unremarkable Labs ordered Rash 09/03/2024 Assessment & Plan (01/12/2025 4:46 PM EDT): Possible allergy? I will prescribe for her omeprazole to apply twice daily no more than 2 weeks on affected areas and hydroxyzine 25 mg every 8 hours as needed for itchiness if symptoms persist or worse report back to me Assessment & Plan (09/03/2024 2:53 PM EST): [...] calories in adult 01/27/2024 Assessment & Plan (01/12/2025 4:47 PM EDT): Extensive counseling about healthy diet and exercise done today, patient tells me she is already tried very hard for this I decided to start her on phentermine 15 mg once daily I will follow-up with her in 4 weeks, side effects of this medication were explained to her I did tell her to expect possible palpitations, anxiety, dry mouth Assessment & Plan (01/27/2024 4:32 PM EDT): Continue tot follow with bariatric specialist and grease press helper Seasonal allergies 01/27/2024 Gastroesophageal reflux disease without [...] EDT): Continue to follow with specialist and grease press helper RTC after surgery Assessment & Plan (01/17/2023 1:51 PM EDT): Today extensive discussion was done about life style modifications I advise healthy diet (low calorie) and cardiovascular exercise F/u with bariatric specialist Obesity 06/25/2017 Assessment & Plan (03/29/2025 12:20 PM EDT): Extensive counseling about healthy diet and exercise done today I will increase her phentermine to 37.5 mg daily plus I added today Topamax 25 mg Plan is for her to return in about 4 to 6 weeks and await her if there is not no progress plan is to do a preauthorization for Zepbound Encounters Date Type Department Care Team Description 06/01/2025 10:00 AM EDT Office Visit [facility] [address] [address] Acute left ankle pain (Primary Dx); Injury of left ankle, initial encounter; Injury of left knee, initial encounter 06/01/2025 Travel 05/30/2025 Refill [facility] [address] [place] [address] Mile Aceves MD Class 1 obesity due to excess calories with serious comorbidity and body mass index (BMI) of 31.0 to 31.9 in adult 05/01/2025 Refill [facility] [address] [place] [phone] Bull Benjamin MD 04/02/2025 Orders Only [facility] [address] [place] [address] Mile Aceves MD 04/02/2025 Orders Only [facility] [address] [place] [phone] Mile Aceves MD 2025 Telephone [facility] [address] [place] [address] Mile Aceves MD Medication Question 2025 Refill [facility] [address] [place] [address] Mile Aceves MD Class 1 obesity due to excess calories with serious comorbidity and body mass index (BMI) of 31.0 to 31.9 in adult 03/29/2025 10:15 AM EDT Office Visit [facility] [address] [place] [phone] Mile Aceves MD Preop examination (Primary Dx); Class 1 obesity due to excess calories with serious comorbidity and body mass index (BMI) of 31.0 to 31.9 in adult 03/29/2025 Travel from Last 3 Months Immunizations Immunization Administration Dates Next Due Influenza injectable quadrivalent [...] 9.6 oz) 06/01/2025 10:02 AM EDT Height 170.2 cm (5' 7 ) 03/29/2025 10:20 AM EDT Body Mass Index 32.51 03/29/2025 10:20 AM EDT Plan of Treatment Upcoming Encounters Date Type Department Care Team (Late st Contact Info) Description 06/03/2025 10:00 AM EDT Office Visit [facility] [address] [place], [place] [phone] Mile Aceves MD [address] [place], [place] [phone] Health Maintenance Due Date Last Done Comments HIV Screening 1991 Disability Screening 1991 Alcohol/Substance Use Screening 2003 Family Planning (PISQ) 2006 HPV Vaccines (1 - 3-dose series) 2006 Hepatitis C Screening 2009 Hepatitis B Vaccines (1 of 3 - 19+ 3-dose series) 2010 Cervical Cancer Screening 01/20/2024 HPV/Cotest 01/20/2024 Pap Smear 01/20/2024 01/19/2021 Dental Oral Exam 11/06/2024 05/05/2024, 09/2018, 05/22/2018 Dental Prophylaxis 11/06/2024 05/05/2024, 1 , 05/22/2018 Depression Screening 01/26/2025 01/27/2024, 01/27/20 24 SDOH Screening 01/26/2025 01/27/2024 Dental X-Ray: Bitewings 05/06/2025 05/05/20 24, 06/23/2019, 05/22/2018 COVID-19 Vaccine ( season) 2025 10/10/2021, 03/22/2021, 03/01/2021, Additional history exists Influenza Vaccine (#1) 2025 09/13/2022, 2016 Tobacco Screening 06/01/2026 06/01/2025 Dental X-Ray: Full Mouth 05/06/2027 024, 06/26/2019, 05/22/2018 Lipid Panel 04/03/2030 04/03/2025, 02/04/2023 DTaP/Tdap/Td Vaccines (3 - Td or Tdap) 11/28/2031 11/27/2021, 06/25/2017 Zoster Vaccines (1 of 2) 2041 RSV Patients and Patients Aged 60 years or older (1 - 1-dose 75+ series) 2066 Pneumococcal Vaccine: Pediatrics (0 to 5 Years) and At-Risk Patients (6 to 49) Years Completed 01/27/2024 HIB Vaccines Aged Out No longer eligi ble based on patient's age to complete this topic Hepatitis A Vaccines Aged Out No long er eligible based on patient's age to complete this topic IPV Vaccines Aged Out No longer eligi ble based on patient's age to complete this topic Meningococcal B Vaccine Aged Out No l onger eligible based on patient's age to complete [...] pain Injury of left ankle, initial encounter LIPID PANEL, STANDARD Routine 04/03/2025 9:18 AM EDT Preop examination BASIC METABOLIC PANEL Routine 04/03/2025 9:18 AM EDT Preop examination ECG 12-LEAD Routine 03/29/2025 12:19 PM EDT Preop examination PROPHYLAXIS - ADULT Routine 05/05/2024 1 0:00 AM EDT Dental calculus Dental plaque INTRAORAL - COMPLETE SERIES OF RADIOGRAPHIC IMAGES Routine 05/05/2024 10:00 AM EDT PERIODIC ORAL EVALUATION - ESTABLISHED PATIENT Routine 05/05/2024 10:00 AM EDT THINPREP PAP Routine 01/19/2021 9:00 AM EDT from Last 3 Months or Most Recently Relevant to Health Maintenance Results * XR Knee 4+ Views Left (06/01/2025 11:23 AM EDT) Anatomical Region Laterality Modality Lower Extremities, Knee Left [facility] 06/01/2025 11:2 3 AM EDT Narrative 06/01/2025 11:33 [place] [address] XRay Report Signed Patient: Aline Dixon MR#: [id number] : 1990 Acct:[id number] Age/Sex: 35 / F ADM Date: 06/01/[facility]: Bull Benjamin MD Ordering Physician: BULL BENJAMIN MD Date of Service: 06/01/25 Procedure(s): XR knee LT 4V Accession Number(s): [id number] cc: BULL BENJAMIN MD Reason for Exam: [...] 06/01/25 1131 DD/ 1123 TD/TT: 06/01/25 1124 Rougher Machine Operator: Procedure Note Donotuseinterpreter, Image - 06/01/[address] [address] XRay Report Signed Patient: Aline Dixon DMR#: [id number] : 1990Acct:[id number] Age/Sex: 35 / FADM Date: 06/01/25 Loc: [facility] Attending Dr: Bull Benjamin MD Ordering Physician: BULL BENJAMIN MD Date of Service: 06/01/25 Procedure(s): XR knee LT 4V Accession Number(s): [id number] cc: BULL BENJAMIN MD Reason for Exam: [...] 06/01/25 1131 DD/ 1123 TD/TT: 06/01/25 1124 Rougher Machine Operator: Bull Benjamin MD IMG XR PROCEDURES Edited Result - Final * XR Ankle 3+ Views Left (06/01/2025 11:01 AM EDT) Anatomical Region Laterality Modality Lower Extremities, Ankle Left Radiogr [facility] 06/01/2025 11:0 1 AM EDT Narrative 06/01/2025 11:32 AM EDT [address] [address] XRay Report Signed Patient: Aline Dixon MR#: [id number] : 1990 Acct:[id number] Age/Sex: 35 / F ADM Date: 06/01/25 [facility]: Bull Benjamin MD Ordering Physician: BULL BENJAMIN MD Date of Service: 06/01/25 Procedure(s): XR ankle LT min 3V Accession Number(s): [id number] cc: BULL BENJAMIN MD Reason for Exam: [...] 06/01/25 1128 DD/ 1101 TD/TT: 06/01/25 1124 Rougher Machine Operator: Procedure Note Donotuseinterpreter, Image - 06/01/[address] [address] XRay Report Signed Patient: Aline Dixon DMR#: [id number] : 1990Acct:[id number] Age/Sex: 35 / FADM Date: 06/01/25 [facility]: Bull Benjamin MD Ordering Physician: BULL BENJAMIN MD Date of Service: 06/01/25 Procedure(s): XR ankle LT min 3V Accession Number(s): [id number] cc: BULL BENJAMIN MD Reason for Exam: [...] 06/01/25 1128 DD/ 1101 TD/TT: 06/01/25 1124 Rougher Machine Operator: us Bull Benjamin MD IMG XR PROCEDURES Edited Result - Final * Lipid Panel, Standard (04/03/2025 9:18 AM EDT) Triglycerides 98 <150 mg/dL [facility] Comment:Desirable Triglyceri de: less than 150 mg/dLBorderline High Triglyceride 150-199 mg/dLHigh Triglyceride: 200-499 mg/dLVery High Triglyceride: greater than or equal to 5OO mg/dL Cholesterol 160 <200 mg/dL [facility] Comment:Desirable Cholestero l: less than 200 mg/dLBorderline High Cholesterol: 200-239 mg/dLHigh Cholesterol: greater than 239 mg/dL LDL Cholesterol Calculated 97 <100 mg/dL [facility] Comment:Desirable LDL: less than 100 mg/dLNear Optimal/Above Optimal LDL: 110- 129 mg/dLBorderline High LDL: 130-159 mg/dLHigh LDL: 160-189 mg/dLVery High LDL: greater than or equal to 190 mg/dL HDL Cholesterol 44 >40 mg/dL [facility] Comment:Desirable HDL: great er than 40 mg/dL Note: This HDL assay may give artificially low results in patients with liver disease. Blood Venous blood specimen / Unknown 04/03/2025 9:18 AM EDT 04/03/2025 9:18 AM EDT us Mile Powers MD LAB BLOOD ORDERABLES Final Result Performing Organization Address City/[facility]/ZIP Co de Phone Number [facility] [address] [place] [phone] * (ABNORMAL) Basic Metabolic Panel (04/03/2025 9:18 AM EDT) Sodium 139 135 - 145 mmol/L [facility] Potassium 4.3 3.3 - 5.1 mmol/L [facility] Chloride 108 96 - 108 mmol/L [facility] Carbon Dioxide 26 22 - 29 mmol/L [facility] Anion Gap 9(L) 12 - 20 [facility] Urea Nitrogen (BUN) 12 9 - 16 mg/dL [facility] Creatinine, Serum 0.61 0.5 - 1.4 mg/dL [facility] Estimated Glomerular Filt Rate >60 [facility] Comment:Chronic Kidney Disea se: Estimated GFR < 60 mL/min/1.17e6Reoxoi Kidney Disease: Estimated GFR < 15 mL/min/1.73m2 Glucose 86 60 - 115 mg/dL [facility] Calcium 8.7 8.4 - 10.2 mg/dL [facility] Blood Venous blood specimen / Unknown 04/03/2025 9:18 AM EDT 04/03/2025 9:18 AM EDT us Mile Powers MD LAB BLOOD ORDERABLES Final Result Performing Organization Address [facility]/ZIP Co de Phone Number [facility] [address] [place] [phone] * ECG 12 lead (03/29/2025 12:19 PM EDT) Narrative Mile Aceves MD - 03/29/2025 12:19 PM EDT Normal sinus rhythm us Mile Powers MD ECG ORDERABLES Final Result * THINPREP PAP (01/19/2021 9:00 AM EDT) Clinical Information: None given [facility] COMMENT SEE COMMENT [facility] Comment: EXPLANATORY NOTE: The Pap is a screening test for cervical cancer. It is not a diagnostic test and is subject to false negative and false positive results. It is most reliable when a satisfactory sample, regularly obtained, is submitted with relevant clinical findings and history, and when the Pap result is evaluated along with historic and current clinical information. Director Retail Brand Development : SEE COMMENT [facility] Comment: DCR, CT(ASCP) CT screening location: [place] [address] Infection Shift in vaginal macho suggestive of bacterial vaginosis. [facility] Interpretation/R esult: Negative for intraepithelial lesion or malignancy. [facility] LMP: NONE GIVEN [facility] Prev. BX: NONE GIVEN [facility] Prev. PAP: NONE GIVEN [facility] SOURCE: None given [facility] Statement Of Adequacy: SEE COMMENT [facility] Comment: Satisfactory for evaluation. Endocervical/transformation zone component present. Age and/or menstrual status not provided 01/19/2021 9:00 AM EDT us Jeannette Solares CNM LAB PATHOLOGY ORDERABLES Final Result [facility] [address] from Last 3 Months or Most Recently Relevant to Health Maintenance Insurance [facility] [employer] [place] AD[place] Care Teams Rx Specialist Relationship Specialty Start Date End Date Mile Aceves MD [address] [place] [phone] PCP - General Family Medicine 09/01/19
--- OUTSIDE RECORDS SUMMARY | 2025-06-01 12:34 | XMS_ITS | Encounter Summary ---
Author Organization [employer] Address [address] [facility] [address]t [place] [address] Care Team Providers Care Mgmt Consultant Name Role Phone Mile Aceves MD Primary Care Provide r Encounter Details Date Type Department Care Team (Latest Contact Info) Description 06/01/2025 Travel Social History Tobacco Use Types Packs/Day Years [...] Description 06/03/2025 10:00 AM EDT Office Visit [facility] [address] [place] [phone] Mile Aceves MD [address] [place] [address] documented as of this encounter Visit Diagnoses Not on filedocumented in this encounter Additional Health Concerns Assessment Noted Time PHQ-9 Depression Total Score: 0 01/27/20 24 3:36 PM EDT documented as of this encounter Care Teams Mgmt Consultant Relationship Specialty Start Date End Date Mile Aceves MD [address] [place] [phone] PCP - General Family Medicine 09/01/19 documented as of this encounter
--- OUTSIDE RECORDS SUMMARY | 2025-06-01 12:34 | XMS_ITS | Encounter Summary ---
Author Organization [employer] Address [address] [place] [address] 7t [place] [address] Care Team Providers Care Sprinkling System Irrigator Name Role Phone Mile Aceves MD Primary Care Provide r Encounter Details Date Type Department Care Team (Latest Contact Info) Description 06/23/2019 Abstract [facility] CONVERSIONS Dental, Provider, DDS Social [...] Description 06/03/2025 10:00 AM EDT Office Visit [facility] [address] [place] [address] Mile Aceves MD [address] [place] [address] documented as of this encounter Visit Diagnoses Not on filedocumented in this encounter Care Teams Sprinkling System Irrigator Relationship Specialty Start Date End Date Mile Aceves MD [address] [place], [place] [phone] PCP - General Family Medicine 09/01/19 documented as of this encounter
--- OUTSIDE RECORDS SUMMARY | 2025-06-01 12:34 | XMS_ITS | Encounter Summary ---
Author Organization [email or web address] Address [address] [facility] 7t [place] [address] Care Team Providers Care Director Of Architecture Name Role Phone Mile Aceves MD Primary Care Provide r Reason for Visit * Reason Comments Med Refill Encounter Details Date Type Department Care Team (Late st Contact Info) Description 05/30/2025 Refill [facility] [address] [place], [place] [phone] Mile Aceves MD [address] [place] [address] Class 1 obesity due to excess calories with serious comorbidity and body mass index (BMI) of 31.0 to 31.9 in adult Social History Tobacco Use Types Packs/Day Years [...] Description 06/03/2025 10:00 AM EDT Office Visit [facility] [address] [place] [address] Mile Aceves MD [address] [place] [address] documented as of this encounter Visit Diagnoses Diagnosis Class 1 obesity due to excess calories with serious comorbidity and body mass index (BMI) of 31.0 to 31.9 in adult documented in this encounter Additional Health Concerns Assessment Noted Time PHQ-9 Depression Total Score: 0 01/27/20 24 3:36 PM EDT documented as of this encounter Care Teams Director Of Architecture Relationship Specialty Start Date End Date Mile Aceves MD [address] [place] [phone] PCP - General Family Medicine 09/01/19 documented as of this encounter
--- OUTSIDE RECORDS SUMMARY | 2025-06-01 12:34 | XMS_ITS | Encounter Summary ---
Author Organization [employer] Address [address] [facility] 7t [place] [address] Care Team Providers Care Contour Sander Name Role Phone Mile Aceves MD Primary Care Provide r Encounter Details Date Type Department Care Team ([facility] st Contact Info) Description 08/06/2024 Orders Only [facility] [address] [place] [address] Priyanka Omalley, DDS [address] [place] [address] Social History Tobacco Use Types Packs/Day Years [...] Description 06/03/2025 10:00 AM EDT Office Visit [facility] [address] [place] [address] Mile Aceves MD [address] [place] [address] documented as of this encounter Visit Diagnoses Not on filedocumented in this encounter Additional Health Concerns Assessment Noted Time PHQ-9 Depression Total Score: 0 01/27/20 24 3:36 PM EDT documented as of this encounter Care Teams Contour Sander Relationship Specialty Start Date End Date Mile Aceves MD [address] [place] [address] PCP - General Family Medicine 09/01/19 documented as of this encounter
--- OUTSIDE RECORDS SUMMARY | 2025-06-01 12:34 | XMS_ITS | Clinical Summary ---
Author Organization [facility] Address [address] [place] [address] Phone Care Team Providers Care Parachute Officer Name Role Phone Mile Aceves MD Primary Care Provide r Allergies No known active allergies Medications albuterol 2.5 mg /3 mL (0.083 %) nebulizer solution Take 3 mL (2.5 mg total) by nebulization every 4 (four) hours if needed. 5 12/12/19 26 Active phentermine 15 mg capsule Take 1 capsule (15 mg total) by mouth 1 (one) time each day before breakfast. 5 Active multivitamin with minerals tablet Take 1 tablet by mouth 1 (one) time each day. Active Encounters Date Type Department Care Team Description 04/28/2025 8:30 AM EDT - 04/28/2025 9:45 AM EDT Surgery [facility] [place] [address] [place] [phone] Jed Chacko MD TONSILLECTOMY [[id number] (CPT )] 04/28/2025 8:25 AM EDT Anesthesia Event [facility] OR [address] [place] [address] [phone] Francisco Goldman MD 04/28/2025 6:40 AM EDT - 04/28/2025 11:07 AM EDT Hospital Encounter [facility] [place] [address] [place] [phone] Jed Chacko MD Obstructive sleep apnea (adult) (pediatric) Discharge Disposition: Home or Self Care from Last 3 Months Surgical History Surgery Date Site/Laterality Comments SECTION, LOW TRANSVERSE X 2 BARIATRIC SURGERY Medical History Medical History Date Comments Asthma GERD (gastroesophageal reflux disease) Obesity Sleep apnea Social History Tobacco Use Types Packs/Day Years Used Date Smoking Tobacco: Never Smokeless Tobacco: Never Alcohol Use Standard Drinks/Week Comments Yes 0 (1 standard drink = 0.6 oz pur e alcohol) VERY RARE Interpersonal Safety Answer Date Record ed Physical Abuse 04/28/2025 Verbal Abuse 04/28/2025 Comments No Sex and Gender Information Value Date Recorded Sex Assigned at Not on file Legal Sex Female 3:31 PM EST Gender Identity Not on file Sexual Orientation Not on file Obstetrics History Last Filed Vital Signs Vital Sign Reading Time Taken Comments Blood Pressure 139/84 04/28/2025 10:23 AM EDT Pulse 66 04/28/2025 10:23 AM EDT Temperature 36.4 C (97.5 F) 04/28/2025 10:23 AM EDT Respiratory Rate 16 04/28/2025 10:23 AM EDT Oxygen Saturation 100% 04/28/2025 10:23 AM EDT Inhaled Oxygen Concentration - - Weight 93 kg (205 lb) 04/28/2025 7:04 AM EDT Height 170.2 cm (5' 7 ) 04/28/2025 7:04 AM EDT Body Mass Index 32.11 04/28/2025 7:04 AM EDT Plan of Treatment Health Maintenance Due Date Last Done Comments Hepatitis B Vaccines (1 of 3 - 19+ 3-dose series) 2010 Cervical Cancer Screening: P ap Smear 2012 Depression Screening 09/23/2024 HIV Screening 04/02/2025 Hepatitis C Screening 04/02/2025 Social Influencers of Health Screening 04/02/2025 COVID-19 Vaccine (2 - 2024-2 6 season) 2025 02/09/2021 Influenza Vaccine (#1) 2025 , 06/25/2017 Cholesterol Screening (Lipid Panel) 04/03/2030 04/03/2025 DTaP,Tdap,and Td Vaccines (3 - Td or Tdap) 11/28/2031 11/27/2021, 06/25/2017 MMR Vaccines Aged Out 01/24/2022 No longer eligi ble based on patient's age to complete this topic Pneumococcal Vaccine: Pediatrics (0 to 5 Years) and At-Risk Patients (6 to 49 Years) Completed 01/27/2024 HIB Vaccines Aged Out [...] patient's age to complete this topic Meningococcal ACWY Vaccine Aged Out N o longer eligible based on patient's age to complete this topic Meningococcal B Vaccine Aged Out No l onger eligible based on patient's age to complete this topic RSV Immunization Patients Under 20 months Aged Out No longer eligible b ased on patient's age to complete this topic Varicella Vaccines Aged Out No longer eligible based on patient's age to complete this topic Procedures Procedure Name Priority Date/Time Associated Diagnosis Comments OXYGEN THERAPY, ADULT Routine 04/28/2025 9:13 AM EDT TISSUE EXAM Routine 04/28/2025 8:49 AM EDT Obstructive sleep apnea (adult) (pediatric) TH AN ENDOTRACHEAL(NO CHARGE) Routine 04/28/2025 8:41 AM EDT [place] TONSILLECTOMY PRIMARY OR SECONDARY AGE 12 OR OLDER 04/28/2025 8:25 AM EDT Obstructive sleep apnea (adult) (pediatric) POC , URINE DIAGNOSTIC Routine 04/28/2025 6:54 AM EDT from Last 3 Months Results * Tissue exam (04/28/2025 8:49 AM EDT) Final Diagnosis A. Tonsil, Right-tonsilectom y: -REACTIVE LYMPHOID HYPERPLASIA B. Tonsil, Left-tonsilectomy : -REACTIVE LYMPHOID HYPERPLASIA 04/29/2025 1:49 PM EDT [facility] Gross Description A. Tonsil, Right, : Labeled right tonsil . Received in formalin is a soft, fortune-pink, lobular tonsil measuring 3.0 x 1.6 x 1.5 cm, with minimal attached blood clot. The mucosa is shiny and pink. The base is cauterized. The cut surfaces are soft and fortune-pink, with a cryptic architecture. The crypts contain minimal soft, yellow debris. A outreach representative section is submitted in one cassette. B. Tonsil, Left, : Labeled left tonsil . Received in formalin, with telfa, is a soft, fortune-pink, lobular tonsil measuring 2.5 x 1.8 x 1.5 cm, with minimal attached blood clot. The mucosa is shiny and pink. The base is cauterized. The cut surfaces are soft and fortune-pink, with a cryptic architecture. The crypts contain a small amount of soft, yellow debris. A outreach representative section is submitted in one cassette. TS 04/29/2025 1:49 PM EDT [facility] Disclaimer Unless otherwise specified, all tissue is 10% NB formalin fixed and paraffin embedded. 04/29/2025 1:49 PM EDT [facility] Tissue Left faucial tonsil structure / Unknown 04/28/2025 8:49 AM EDT 04/28/2025 10:37 AM EDT Tissue specimen (specimen) Left faucial tonsil structure / Unknown 04/28/2025 8:49 AM EDT 04/28/2025 10:37 AM EDT us Jed Chacko MD LAB PATHOLOGY ORDERABLES Final Result [facility] [address] [place] [address], * TH AN ENDOTRACHEAL(NO CHARGE) (04/28/2025 8:41 AM EDT) Narrative Ag Gomez CRNA - 04/28/2025 8:41 AM EDT Ag Gomez CRNA 04/28/2025 8:41 AM General Information and Staff Patient location during procedure: OR Performed by: Ag Gomez CRNA Authorized by: Francisco Goldman MD Intubation Airway not difficult Urgency: elective Final Airway Details Successful airway: ETT Cuffed: yes Successful intubation technique: direct laryngoscopy Facilitating devices/methods: intubating stylet Endotracheal tube insertion site: oral Blade: Zachary Blade size: #3 ETT size (mm): 7.5 Cormack-Lehane Classification: grade I - full view of glottis Placement verified by: chest auscultation and capnometry Number of attempts at approach: 1Final airway type: endotracheal airway Indications and Patient Condition Indications for airway management: anesthesia Spontaneous Ventilation: absent Sedation level: Yes Preoxygenated: yes Soft Tissue Damage: No Dentition Unchanged: Yes Patient position: neutral MILS maintained throughout Mask difficulty assessment: 1 - vent by mask Francisco Goldman MD ANESTHESIA ORDERABLES Final R esult * POC , urine manually resulted (04/28/2025 6:54 AM EDT) HCG, Ur POC Negative Negative POC hCG Int QC Pass? Yes Yes Urine Urine specimen obtained by clean catch procedure / Unknown 04/28/2025 6:54 AM EDT Francisco Goldman MD POINT OF CARE TEST ENTER/EDIT ORDERABLES Final Result from Last 3 Months Insurance MEDICAID - [place] Care Teams Parachute Officer Relationship Specialty Start Date End Date Mile Aceves MD [address] [place] [phone] PCP - General Internal Medicine 04/28/25
== END 2025-06-01 10:40 | disposition home or self-care (01) ==
LOC: HO.HHCX 10:39
PROVIDERS: Visit Provider Emergency Medicine
DX: S89.92XA Unspecified injury of left lower leg, initial encounter (principal); S99.912A Unspecified injury of left ankle, initial encounter; M25.572 Pain in left ankle and joints of left foot
CPT/HCPCS: 73564; 73610

== ENCOUNTER → 2025-06-01 10:40 | Outpatient (BNV) | payer MEDICAID, SELFPAY | PROVIDERS: Visit Provider Radiology Diagnostic Radiology | DX: M25.562 Pain in left knee (principal); M25.472 Effusion, left ankle | CPT/HCPCS: 73564; 73610 ==

== ENCOUNTER 2025-06-09 14:19 | Outpatient (AMB) | payer MEDICAID, SELFPAY ==
--- NOTE | 2025-06-09 14:29 | A.OFFVIS_ITS ---
Vital Signs 06/09/25 14:32 Height 5 ft 7 in Weight 205 lb BMI 32.1 Intake Visit Reasons: Left knee pain Intake Note: Aline is a 35 year old female who presents with complaints of left knee pain. She describes her pain as sharp in nature. She has had cortisone injections in the past which gave minimal relief. She has also had viscosupplementation injections which gave her fairly good relief. She has tried physical therapy which aggravated her pain. She has also tried Tylenol and anti-inflammatory medicines which gave her minimal relief. She wishes to hold off on surgery if at all possible. At this point her left knee pain is interfering with her activities of daily living and her ability to sleep well through the night. Allergies No Known Allergies (No Known Allergies*) Allergy (Verified 06/09/25 14:32) Seasonal Allergies Allergy (Unknown, Uncoded 03/03/25 14:41) itching Medication List - Last Reconciled 06/09/25 by Dominic Landrum MD montelukast 10 mg PO BEDTIME nebulizers As directed [facility] Medical History Chronic allergic rhinitis COVID-19 Pneumonia GILBERTO (obstructive sleep apnea) Irregular heart beat Sleep apnea Asthma Surgical History History of section Family History (Updated 11/28/21 @ 15:10 by Heidy Dowling Jose) Father No problems noted. Mother No problems noted. Social History (Updated 12/28/24 @ 11:39 by GRISELDA Carrera) Household Members: Spouse and Children Alcohol intake: never Patient Tobacco Use Status: Never used Tobacco Current occupational status: employed Current occupation: right handed / [employer] Physical Exam Vital Signs: BMI result Body Mass Index 32.1 Const Other: Well-nourished well-developed very friendly female awake alert and oriented x3 in no acute distress Extrem Other: Bilateral lower extremity examination shows good capillary refill, no skin lesions noted, normal sensation light touch Left knee examination shows a minimal effusion, palpable crepitus with range of motion, pain with range of motion, no instability Results Reviewed Results Reviewed: X-rays of the patient's left knee taken previously show joint space narrowing, subchondral sclerosis, no acute bony abnormalities Assessment & Plan Assessment & Plan (1) Left knee pain: Code(s): M25.562 - Pain in left knee Category: Medical (2) Osteoarthritis of left knee: Code(s): M17.12 - Unilateral primary osteoarthritis, left knee Category: Medical Plan Ms. Kuldeep Chavez presents with left knee pain due to osteoarthritis. I had a lengthy discussion with the patient regarding the treatment options. She wishes to hold off on surgery if at all possible. I agree with this plan. I will see if the patient's insurance company will cover a another series of 3 Euflexxa viscosupplementation injections for her left knee. I will see her back once the injections are available. Feel free to call me at any time should questions regarding her orthopedic management arise. I spent 21 minutes in reviewing the patient's records and imaging studies, seeing the patient and documenting in the medical record. Coding Level of Care Code Est Pt Level 3 (11113) Complex EM visit Add On G2211 Diagnoses Left knee pain M25.562 Osteoarthritis of left knee M17.12
[2025-06-09 14:32] VITALS: BMI 32.1
--- OUTSIDE RECORDS SUMMARY | 2025-06-09 18:04 | XMS_ITS | Encounter Summary ---
Author Organization [employer] Address [address] [facility] [address] [place] [address] Care Team Providers Care Commercial Journeyman Electrician Name Role Phone Mile Aceves MD Primary Care Provide r Reason for Visit * Reason Comments Care Coordination CHW outreach for SDO H housing search-referral completed Encounter Details Date Type Department Care Team (Latest Contact Info) Description 06/07/2025 Patient Outreach [facility] [address] [place] [address] Mile Aceves MD [address] [place] [address] Care Coordination (CHW outreach for SDOH housing search-referral completed ) Social History Tobacco Use Types Packs/Day Years [...] Answer Date Recorded Patient Health Questionnaire-9 Score 2 06/03/2025 Patient Health Questionnaire-9 Score 2 06/03/2025 Last PHQ-9: Questionnaire Data Not on file 0 06/03/2025 Housing Stability Answer Date Recorded What is your housing situation today? I have gaye michael 06/03/[address] you li ve. Do you have problems with any of the following? None of the above 06/03/2025 Food Insecurity Answer Date Recorded Within the past 12 months, y ou worried that your food would run out before you got money to buy more: Sometimes True 2024 Within the past 12 months,th e food you bought just didn't last and you didn't have enough money to get more: Sometimes True 06/03/2025 Transportation Answer Date Recorded In the past 12 months, has l ack of transportation kept you from medical appts, meetings, work or from getting things needed for daily living? No 06/03/2025 Utilities Answer Date Recorded In the past 12 months, has t he electric, gas, oil or water company threatened to shut off services in your home? Yes 06/03/2025 Depression Answer Date Recorded Patient Health Questionnaire-2 Score 0 06/03/2025 Internet Access Answer Date Recorded Internet Access Q1 Yes 06/03/2025 Internet Access Q2 Not on file 06/03/2025 Comments No Sex and Gender Information Value Date Recorded Sex Assigned at Female 07/23/2022 10:17 AM EDT Legal Sex Female 10:17 AM EDT Gender Identity Female 07/23/2022 10:17 AM EDT Sexual Orientation Straight 07/23/2022 10 :17 AM EDT documented as of this encounter Progress Notes * James Gonzalez - 06/07/2025 9:26 AM EDT CHW James Gonzalez, placed outbound call to patient for assistance with SDOH as a referral was received by the provider. Patient's name and were confirmed. Patient screened positive for the following SDOH housing insecurities. Patient states is staying with her friend but is searching for her own apartment. CHW referral patient to the list of application mail out to her address on file. Patient verbalizes understanding, and able to agree with plan to follow up herself. Patient educated on extended clinic hours on Mondays through Wednesdays, and Walk-In Urgent Care Located in [facility] of [facility]. Patient provided with after-hours line for [facility], , which offer night time triage service and option to transfer to publications distribution clerk provider if needed. documented in this encounter Plan of Treatment Upcoming Encounters Date Type Department Care Team (Late st Contact Info) Description 07/21/2025 11:30 AM EDT Office Visit [facility] [address] [place] [address] Mile Aceves MD [address] [place] [address] documented as of this encounter Visit Diagnoses Not on filedocumented in this encounter Additional Health Concerns Assessment Noted Time PHQ-9 Depression Total Score: 2 06/03/20 25 10:42 AM EDT documented as of this encounter Care Teams Commercial Journeyman Electrician Relationship Specialty Start Date End Date Mile Aceves MD [address] [place] [phone] PCP - General Family Medicine 09/01/19 documented as of this encounter
--- OUTSIDE RECORDS SUMMARY | 2025-06-09 18:04 | XMS_ITS | Encounter Summary ---
Author Organization [employer] Address [address] [facility] [address] [place] [address] Care Team Providers Care Gas Compressor Operator Name Role Phone Mile Aceves MD Primary Care Provide r Encounter Details Date Type Department Care Team ([facility] st Contact Info) Description 08/06/2024 Orders Only [facility] D[facility]AL [address] [place] [address] Priyanka Omalley, DDS [address] [place] [address] Social History Tobacco Use Types Packs/Day Years [...] Description 07/21/2025 11:30 AM EDT Office Visit [facility] [address] [place] [address] Mile Aceves MD [address] [place] [address] documented as of this encounter Visit Diagnoses Not on filedocumented in this encounter Additional Health Concerns Assessment Noted Time PHQ-9 Depression Total Score: 0 01/27/20 24 3:36 PM EDT documented as of this encounter Care Teams Gas Compressor Operator Relationship Specialty Start Date End Date Mile Aceves MD [address] [place] [address] PCP - General Family Medicine 09/01/19 documented as of this encounter
--- OUTSIDE RECORDS SUMMARY | 2025-06-09 18:04 | XMS_ITS | Encounter Summary ---
Author Organization [employer] Address [address] [place] [address] [address] [place] [address] Care Team Providers Care Inspector Optical Instrument Name Role Phone Mile Aceves MD Primary Care Provide r Encounter Details Date Type Department Care Team (Latest Contact Info) Description 06/23/2019 Abstract [facility] CONVERSIONS Dental, Provider, DDS Social History [...] Description 07/21/2025 11:30 AM EDT Office Visit [facility] MED[facility]INE [address] [place] [address] Mile Aceves MD [address] [place] [address] documented as of this encounter Visit Diagnoses Not on filedocumented in this encounter Care Teams Inspector Optical Instrument Relationship Specialty Start Date End Date Mile Aceves MD [address] [place], [place] [phone] PCP - General Family Medicine 09/01/19 documented as of this encounter
--- OUTSIDE RECORDS SUMMARY | 2025-06-09 18:04 | XMS_ITS | Encounter Summary ---
Author Organization [employer] Address [address] [place] [address] [address] [place] [address] Care Team Providers Care Radiator Cleaner Name Role Phone Mile Aceves MD Primary Care Provide r Reason for Visit * Reason Onset Date Comments Prior Authorization 06/04/2025 PA: Anila und Encounter Details Date Type Department Care Team (Late st Contact Info) Description 06/04/[address] [facility] [address] [place] [address] Mile Aceves MD [address] [place] [address] Prior Authorization ( PA: Joselyn) Social History Tobacco Use Types Packs/Day Years [...] AM EDT documented as of this encounter Miscellaneous Notes * Telephone Encounter - Terese Chavez - 06/04/2025 11:02 AM EDT MH PA was generated for [employer] and sent via FAX to Plan with supporting documentation. Confirmation was uploaded to Media. * Telephone Encounter - Terese Chavez - 06/04/2025 11:01 AM EDT ----- Message from Mile Powers MD sent at 06/03/2025 10:24 AM EDT ----- Please generate PA for [employer] I will fish note today documented in this encounter Plan of Treatment Upcoming Encounters Date Type Department Care Team ([facility] st Contact Info) Description 07/21/2025 11:30 AM EDT Office Visit [facility] [address] [place] [address] [place] [address] Mile Aceves MD [address] [place] [address] documented as of this encounter Visit Diagnoses Not on filedocumented in this encounter Additional Health Concerns Assessment Noted Time PHQ-9 Depression Total Score: 2 06/03/20 25 10:42 AM EDT documented as of this encounter Care Teams Radiator Cleaner Relationship Specialty Start Date End Date Mile Aceves MD [address] [place] [address] PCP - General Family Medicine 09/01/19 documented as of this encounter
--- OUTSIDE RECORDS SUMMARY | 2025-06-09 18:04 | XMS_ITS | Clinical Summary ---
Author Organization [employer] Address [address] [place] [address] 7[address] [place] [address] Care Team Providers Care Radiology Special Procedure Tech Name Role Phone Mile Aceves MD Primary [...] BEFORE BREAKFAST 30 capsule 05/31/20 25 Active lidocaine (Lidoderm) 5 % patch Apply 1 patch topically Once per day. Remove & discard patch within 12 hours or as directed by MD. 30 patch 2 06/01/20 25 2025 Active acetaminophen (Tylenol 8 Hour) 650 MG ER tabletIndicati ons:Acute pain of left knee Take 2 tablets (1,300 mg) by mouth every 8 (eight) hours if needed for moderate pain. Do not crush, chew, or split. 30 tablet 06/03/20 25 Active ibuprofen 400 MG tabletIndicati ons:Acute pain of left knee Take 1 tablet (400 mg) by mouth every 6 (six) hours if needed for moderate pain or fever for up to 30 doses. 30 tablet 06/03/20 25 Active Tirzepatide-We ight Management (Zepbound) 2.5 MG/0.5ML solution auto-injectorI ndications:Cla ss 1 obesity due to excess calories with serious comorbidity and body mass index (BMI) of 31.0 to 31.9 in adult,Obstruct gem sleep apnea syndrome Inject 0.5 mL (2.5 mg) under the skin 1 (one) time per week. 2 mL 06/03/20 25 Active phentermine 15 MG capsuleIndicat ions:Class [...] eorder (will not trigger notification to Pharmacy)) acetaminophen (Tylenol 8 Hour) 650 MG ER tablet Take 2 tablets (1,300 mg) by mouth every 8 (eight) hours if needed for moderate pain. Do not crush, chew, or split. 30 tablet 06/01/20 25 2024 Discontinued(R eorder (will not trigger notification to Pharmacy)) ibuprofen 400 MG tablet Take 1 tablet (400 mg) by mouth every 6 (six) hours if needed for moderate pain or fever for up to 30 doses. 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 Assessment & Plan (06/03/2025 12:45 PM EDT): Continue to follow with sleep medicine Preop examination 03/29/2025 Assessment & Plan (03/29/2025 [...] calories in adult 01/27/2024 Assessment & Plan (06/03/2025 12:45 PM EDT): Extensive counseling about healthy diet and exercise done today Patient was started on phentermine 4 months ago in light there was no response at all to the medication I will go ahead and put medication Zepbound 2.5 mg weekly this was also will help her with her GILBERTO Assessment & Plan (01/12/2025 4:47 PM EDT): [...] Continue tot follow with bariatric specialist and organ tuner electronic Seasonal allergies 01/27/2024 Gastroesophageal reflux disease without [...] asthma without complication 01/17/2023 Assessment & Plan (06/03/2025 12:45 PM EDT): Stable continue with current interventions Assessment & Plan (09/03/2024 2:52 PM EST): [...] EDT): Continue to follow with specialist and organ tuner electronic RTC after surgery Assessment & Plan (01/17/2023 [...] Encounters Date Type Department Care Team Description 06/07/2025 Patient Outreach [address] [address] Mile Aceves MD Care Coordination (W outreach for SDOH housing search-referral completed ) 06/04/[address] [address] Mile Aceves MD Prior Authorization ( PA: [place]) 06/03/2025 10:00 AM EDT Office Visit [address] [address] Mile Aceves MD Overlap syndrome (CMS/HCC) (Primary Dx); Acute pain of left knee; Class 1 obesity due to excess calories with serious comorbidity and body mass index (BMI) of 31.0 to 31.9 in adult; Obstructive sleep apnea syndrome; Moderate persistent asthma without complication; Dietary counseling; Exercise counseling 06/03/2025 Travel 06/02/2025 Telephone [facility] [address] [place] [address] Mile Aceves MD Chart Prep 06/02/2025 Telephone [facility] [address] [place] [phone] Mile Aceves MD Chart Prep 06/01/2025 10:00 AM EDT Office Visit [facility] [address] [place] [address] Bull Bnejamin MD Acute left ankle pain (Primary Dx); Injury of left ankle, initial encounter; Injury of left knee, initial encounter 06/01/2025 Travel 05/30/2025 Refill [facility] [address] [place] [phone] Mile Aceves MD Class 1 obesity due to excess calories with serious comorbidity and body mass index (BMI) of 31.0 to 31.9 in adult 05/01/2025 Refill [facility] [address] [place] [address] Bull Benjamin MD 04/02/2025 Orders Only [facility] [address] [place] [address] Mile Aceves MD 04/02/2025 Orders Only [facility] [address] [place] [address] Mile Aceves MD 2025 Telephone [facility] [address] [place] [phone] Mile Aceves MD Medication Question 2025 Refill [facility] [address] [place] [address] Mile Aceves MD Class 1 obesity due to excess calories with serious comorbidity and body mass index (BMI) of 31.0 to 31.9 in adult 03/29/2025 10:15 AM EDT Office Visit [facility] [address] [place] [address] Mile Aceves MD Preop examination (Primary Dx); [...] is your housing situation today? I have gayeanne marie michael 06/03/[address] you [...] Sign Reading Time Taken Comments Blood Pressure 120/70 06/03/2025 10:12 AM EDT Pulse 80 06/03/2025 10:12 AM EDT Temperature 36.3 C (97.4 F) 06/03/2025 10:12 AM EDT Respiratory Rate 18 06/03/2025 10:12 AM EDT Oxygen Saturation 98% 06/01/2025 10:02 AM EDT Inhaled Oxygen Concentration - - Weight 93.6 kg (206 lb 4 oz) 06/03/2025 10:12 AM EDT Height 170.2 cm (5' 7 ) 06/03/2025 10:12 AM EDT Body Mass Index 32.3 06/03/2025 10:12 AM EDT Plan of Treatment Upcoming Encounters Date Type Department Care Team (Late st Contact Info) Description 07/21/2025 11:30 AM EDT Office Visit [facility] [address] [place] [address] Mile Aceves MD [address] [place] [address] Health Maintenance Due Date Last Done Comments HIV Screening 1990 Family Planning (PISQ) 2006 HPV Vaccines (1 - 3-dose series) 2006 Hepatitis C Screening 2009 Hepatitis B Vaccines (1 of 3 - 19+ 3-dose series) 2010 Cervical Cancer Screening 01/20/2024 HPV/Cotest 01/20/2024 Pap Smear 01/20/2024 01/19/2021 Dental Oral Exam 11/06/2024 05/05/2024, 09/2018, 05/22/2018 Dental Prophylaxis 11/06/2024 05/05/2024, 1 , 05/22/2018 Dental X-Ray: Bitewings 05/06/2025 05/05/20 24, 06/23/2019, 05/22/2018 COVID-19 Vaccine ( season) 2025 10/10/2021, 03/22/2021, 03/01/2021, Additional history exists Influenza Vaccine (#1) 2025 09/13/2022, 2016 Tobacco Screening 06/01/2026 06/01/2025 Alcohol/Substance Use Screening 06/03/2026 06/03/2025 Depression Screening 06/03/2026 06/03/2025, 06/03/20 25 Disability Screening 06/03/2026 06/03/2025 SDOH Screening 06/03/2026 06/03/2025 Dental X-Ray: Full Mouth 05/06/2027 024, 06/26/2019, [...] Laterality Modality Lower Extremities, Knee [facility] 06/01/2025 11:2 3 AM EDT Narrative 06/01/2025 11:33 [place] [address] XRay Report Signed Patient: Aline Dixon MR#: [id number] : 1990 Acct:[id number] Age/Sex: 35 / F ADM Date: 06/01/25 Loc: HO.HHCX Attending Dr: Bull Benjamin MD Ordering Physician: BULL BENJAMIN MD Date of Service: 06/01/25 Procedure(s): XR knee LT 4V Accession Number(s): [id number] cc: BULL BENJAMIN MD Reason for Exam: [...] Roly Ron MD 06/01/2025 11:31 AM EDT RP Dictated By: Roly Amador MD Signed By: <Electronically signed by Roly Navarrete MD in OV> 06/01/25 1131 DD/ 1123 TD/TT: 06/01/25 1124 Electronic Tech: Procedure Note Donotuseinterpreter, Image - 06/01/2025 [place] [address] XRay Report Signed Patient: Aline Dixon DMR#: [id number] : 1990Acct:[id number] Age/Sex: 35 / FADM Date: 06/01/25 Loc: HO.HHCX Attending Dr: Bull Benjamin MD Ordering Physician: BULL BENJAMIN MD Date of Service: 06/01/25 Procedure(s): XR knee LT 4V Accession Number(s): [id number] cc: BULL BENJAMIN MD Reason for Exam: [...] Roly Ron MD 06/01/2025 11:31 AM EDT RP Dictated By: Roly Amador MD Signed By: <Electronically signed by Roly Navarrete MDin OV> 06/01/25 1131 DD/ 1123 TD/TT: 06/01/25 1124 Electronic Tech: Bull Benjamin MD IMG XR PROCEDURES Edited Result - Final * XR Ankle 3+ Views Left (06/01/2025 11:01 AM EDT) Anatomical Region Laterality Modality Lower Extremities, Ankle Left Radiogr aphic Imaging 06/01/2025 11:0 1 AM EDT Narrative 06/01/2025 11:32 AM EDT [address] [address] XRay Report Signed Patient: Aline Dixon MR#: [id number] : 1990 Acct:[id number] Age/Sex: 35 / F ADM Date: 06/01/25 Loc: .HHX Attending Dr: Bull Benjamin MD Ordering Physician: BULL BENJAMIN MD Date of Service: 06/01/25 Procedure(s): XR ankle LT min 3V Accession Number(s): [id number] cc: BULL BENJAMIN MD Reason for Exam: [...] OV> 06/01/25 1128 DD/ 1101 TD/TT: 06/01/25 112 Electronic Tech: Procedure Note Arvindzachter, Image - 06/01/2025 [facility] [address] [place] [address] XRay Report Signed Patient: Aline Dixon DMR#: [id number] : 1990Acct:[id number] Age/Sex: 35 / FADM Date: 06/01/25 Loc: HO.HHCX Attending Dr: Bull Benjamin MD Ordering Physician: BULL BENJAMIN MD Date of Service: 06/01/25 Procedure(s): XR ankle LT min 3V Accession Number(s): [id number] cc: BULL BENJAMIN MD Reason for Exam: [...] OV> 06/01/25 1128 DD/ 1101 TD/TT: 06/01/25 112 Electronic Tech: Bull Benjamin MD IMG XR PROCEDURES Edited Result - Final * Lipid Panel, Standard (04/03/2025 9:18 AM EDT) Triglycerides 98 <150 mg/dL [facility] Comment:Desirable Triglyceri de: less than 150 mg/dLBorderline High Triglyceride 150-199 mg/dLHigh Triglyceride: 200-499 mg/dLVery High Triglyceride: greater than or equal to 5OO mg/dL Cholesterol 160 <200 mg/dL [facility] Comment:Desirable Cholestero l: less than 200 mg/dLBorderline High Cholesterol: 200-239 mg/dLHigh Cholesterol: greater than 239 mg/dL LDL Cholesterol Calculated 97 <100 mg/dL [facility] Comment:Desirable LDL: less than 100 mg/dLNear Optimal/Above Optimal LDL: 110- 129 mg/dLBorderline High LDL: 130-159 mg/dLHigh LDL: 160-189 mg/dLVery High LDL: greater than or equal to 190 mg/dL HDL Cholesterol 44 >40 mg/dL [facility] Comment:Desirable HDL: great er than 40 mg/dL Note: This HDL assay may give artificially low results in patients with liver disease. Blood Venous blood specimen / Unknown 04/03/2025 9:18 AM EDT 04/03/2025 9:18 AM EDT us Mile Powers MD LAB BLOOD ORDERABLES Final Result [facility] [address] [place] [phone] * (ABNORMAL) Basic Metabolic Panel (04/03/2025 9:18 AM EDT) Pathologist [facility] Sodium 139 135 - 145 mmol/L [facility] Potassium 4.3 3.3 - 5.1 mmol/L [facility] Chloride 108 96 - 108 mmol/L [facility] Carbon Dioxide 26 22 - 29 mmol/L [facility] Anion Gap 9(L) 12 - 20 [facility] Urea Nitrogen (BUN) 12 9 - 16 mg/dL [facility] Creatinine, Serum 0.61 0.5 - 1.4 mg/dL [facility] Estimated Glomerular Filt Rate >60 [facility] Comment:Chronic Kidney Disea se: Estimated GFR < 60 mL/min/1.84h4Cetjcn Kidney Disease: Estimated GFR < 15 mL/min/1.73m2 Glucose 86 60 - 115 mg/dL [facility] Calcium 8.7 8.4 - 10.2 mg/dL [facility] Blood Venous blood specimen / Unknown 04/03/2025 9:18 AM EDT 04/03/2025 9:18 AM EDT us Mile Powers MD LAB BLOOD ORDERABLES Final Result [facility] [address] [place] [phone] * ECG 12 lead (03/29/2025 12:19 PM EDT) Narrative Mile Aceves MD - 03/29/2025 12:19 PM EDT Normal sinus rhythm us Mile Powers MD ECG ORDERABLES Final Result * THINPREP PAP (01/19/2021 9:00 AM EDT) Clinical Information: None given [facility] COMMENT SEE COMMENT [facility] [...] with historic and current clinical information. Director Of Direct Marketing : SEE COMMENT [facility] Comment: DCR, CT(ASCP) CT screening location: [place] [address] Infection Shift in vaginal macho suggestive of bacterial vaginosis. [facility] Interpretation/R esult: Negative for intraepithelial lesion or malignancy. [facility] LMP: NONE GIVEN [facility] Prev. BX: NONE GIVEN [facility] Prev. PAP: NONE GIVEN [facility] SOURCE: None given [facility] Statement Of Adequacy: SEE COMMENT [facility] Comment: Satisfactory for evaluation. Endocervical/transformation zone component present. Age and/or menstrual status not provided 01/19/2021 9:00 AM EDT Jeannette Solares CNM LAB PATHOLOGY ORDERABLES Final Result [facility] [address] from Last 3 Months or Most Recently Relevant to Health Maintenance Insurance [facility] C3 DENTAL-[facility] MEDICAID STAND ADULT Care Teams Radiology Special Procedure Tech Relationship Specialty Start Date End Date Mile Aceves MD [address] [place] [phone] PCP - General Family Medicine 09/01/19
--- OUTSIDE RECORDS SUMMARY | 2025-06-09 18:04 | XMS_ITS | Clinical Summary ---
Author Organization [facility] Address [address] [place] [address] Phone Care Team Providers Care Event Sales Representative Name Role Phone Mile Aceves MD Primary [...] EDT - 04/28/2025 9:45 AM EDT Surgery [facility] [place] [address] [place] [phone] Jed Chacko MD TONSILLECTOMY [[id number] (CPT )] 04/28/2025 8:25 AM EDT Anesthesia Event [facility] [place] [address] [place] [phone] Francisco Goldman MD 04/28/2025 6:40 AM EDT - 04/28/2025 11:07 AM EDT Hospital Encounter [facility] [place] [address] [place] [phone] Jed Chacko MD Obstructive sleep apnea (adult) [...] ENDOTRACHEAL(NO CHARGE) Routine 04/28/2025 8:41 AM EDT AL TONSILLECTOMY PRIMARY OR SECONDARY AGE 13 OR OLDER 04/28/2025 8:25 AM EDT Obstructive sleep apnea (adult) (pediatric) POC , URINE DIAGNOSTIC Routine 04/28/2025 6:54 AM EDT from Last 3 Months Results * Tissue exam (04/28/2025 8:49 AM EDT) Final Diagnosis A. Tonsil, Right-tonsilectom y: -REACTIVE LYMPHOID HYPERPLASIA B. Tonsil, Left-tonsilectomy : -REACTIVE LYMPHOID HYPERPLASIA 04/29/2025 1:49 PM EDT [facility] Gross Description A. Tonsil, Right, : Labeled right tonsil . Received in formalin is a soft, fortune-pink, lobular tonsil measuring 3.0 x 1.6 x 1.5 cm, with minimal attached blood clot. The mucosa is shiny and pink. The base is cauterized. The cut surfaces are soft and fortune-pink, with a cryptic architecture. The crypts contain minimal soft, yellow debris. A billing representative section is submitted in one cassette. [...] small amount of soft, yellow debris. A billing representative section is submitted in one cassette. TS 04/29/2025 1:[address] [facility] Disclaimer Unless otherwise specified, all tissue is 10% NB formalin fixed and paraffin embedded. 04/29/2025 1:[address] [facility] Tissue Left faucial tonsil structure / Unknown 04/28/2025 8:49 AM EDT 04/28/2025 10:37 AM EDT Tissue specimen (specimen) Left faucial tonsil structure / Unknown 04/28/2025 8:49 AM EDT 04/28/2025 10:37 AM EDT us Jed Chacko MD LAB PATHOLOGY ORDERABLES Final Result [facility] [address] [place] [address], * TH AN ENDOTRACHEAL(NO CHARGE) (04/28/2025 8:41 [...] Months Insurance MEDICAID - [place] Care Teams Event Sales Representative Relationship Specialty Start Date End Date Mile Aceves MD [address] [place] [phone] PCP - General Internal Medicine 04/28/25
== END 2025-06-09 14:51 | disposition home or self-care (01) ==
LOC: HO.HOS 14:20
PROVIDERS: PCP Internal Medicine; Visit Provider Orthopaedic Surgery
DX: M25.562 Pain in left knee (principal); M17.12 Unilateral primary osteoarthritis, left knee
CPT/HCPCS: 99213

== ENCOUNTER → 2025-06-09 14:19 | Outpatient (BNVA) | payer MEDICAID, SELFPAY | PROVIDERS: PCP Internal Medicine; Visit Provider Orthopaedic Surgery | DX: M25.562 Pain in left knee (principal); M17.12 Unilateral primary osteoarthritis, left knee | CPT/HCPCS: 99212 ==

== ENCOUNTER 2025-09-07 14:14 | Outpatient (AMB) | payer MEDICAID, SELFPAY ==
--- NOTE | 2025-09-07 14:16 | A.OFFVIS_ITS ---
Intake Visit Reasons: Left knee pain Intake Note: Aline is a 35 year old female who presents with complaints of progressively worsening left knee pain. She describes her pain as sharp in nature. She has failed the last 3 months of conservative treatment which has included Tylenol, anti-inflammatory medicines and physical therapy exercises. The patient also reports intermittent pain in her left foot and ankle. Allergies No Known Allergies (No Known Allergies*) Allergy (Verified 06/09/25 14:32) Seasonal Allergies Allergy (Unknown, Uncoded 03/03/25 14:41) itching Medication List - Last Reconciled 09/07/25 by Dominic Landrum MD montelukast 10 mg PO BEDTIME nebulizers As directed [facility] Medical History Chronic allergic rhinitis COVID-19 Pneumonia GILBERTO (obstructive sleep apnea) Irregular heart beat Sleep apnea Asthma Surgical History History of section Family History (Updated 11/28/21 @ 15:10 by GABI Boland) Father No problems noted. Mother No problems noted. Social History (Updated 12/28/24 @ 11:39 by GRISELDA Carrera) Household Members: Spouse and Children Alcohol intake: never Patient Tobacco Use Status: Never used Tobacco Current occupational status: employed Current occupation: right handed / [employer] Physical Exam Extrem Other: Left knee examination shows a minimal effusion, palpable crepitus with range of motion, pain with range of motion, no instability Office Procedures AMB Joint Injection/Aspiration Joint Injection/Aspiration Primary Site: Left Knee Prep: site was prepped using aseptic technique Injected: 20 mg of, Euflexxa, with 3 mL of and 1% plain Lidocaine Procedure: The patient tolerated the procedure well Coding 71681 - Large joint Procedure code (CPT) selection complete Results Reviewed Results Reviewed: X-rays of the patient's left knee taken previously show joint space narrowing, subchondral sclerosis, no acute bony abnormalities Assessment & Plan Assessment & Plan (1) Left knee pain: Code(s): M25.562 - Pain in left knee Category: Medical (2) Osteoarthritis of left knee: Code(s): M17.12 - Unilateral primary osteoarthritis, left knee Category: Medical Plan Ms. Kuldeep Chavez presents with left knee pain due to osteoarthritis. The ris ks and benefits of the 1st Euflexxa injection were discussed at length with the patient. The patient wished to proceed. She tolerated the injection well. She will follow up next week as scheduled. I did refer the patient to our podiatry department here at [facility] for further evaluation of her left foot and ankle pain. Feel free to call me at any time should questions regarding her orthopedic management arise. I spent 22 minutes in reviewing the patient's records and imaging studies, seeing the patient and documenting in the medical record. Orders: Orders AMB Joint Injection/Aspiration 09/07/25 M17.12 - Unilateral primary osteoarthritis, left knee Referrals Podiatry Referral M79.672 - Pain in left foot Coding Level of Care Code Est Pt Level 3 (90794) Add On Problem Visit Only Diagnoses Left knee pain M25.562 Osteoarthritis of left knee M17.12 CPT Codes Coding - 79960 Large joint: 39454 - Large joint ([id number])
--- OUTSIDE RECORDS SUMMARY | 2025-09-07 18:29 | XMS_ITS | Clinical Summary ---
Author Organization [facility] Address [address] [place] [address] Phone Care Team Providers Care Glass Cut Off Supervisor Name Role Phone Mile Aceves MD Primary [...] mouth 1 (one) time each day. Active Surgical History Surgery Date Site/Laterality Comments SECTION, [...] Safety Answer Date Record ed Physical Abuse Unrecognized value 04/28/2025 Verbal Abuse Unrecognized value 04/28/2025 Comments No Sex and Gender Information Value Date Recorded Sex Assigned at Not on file Legal Sex Female 3:31 PM EST Gender Identity Not on file Sexual Orientation Not on file Last Filed Vital Signs Vital Sign Reading [...] Cervical Cancer Screening: P ap Smear 2012 HPV Vaccines (1 - 3-dose SCD M series) 2018 Depression Screening 09/23/2024 HIV Screening 04/02/2025 Hepatitis C Screening 04/02/2025 Social Influencers of Health Screening 04/02/2025 COVID-19 Vaccine (2 - 2024-2 6 season) 2025 02/09/2021 Influenza Vaccine (#1) 2025 , 06/25/2017 Cholesterol Screening (Lipid Panel) 04/03/2030 04/03/2025 DTaP,Tdap,and Td Vaccines (3 - Td or Tdap) 11/28/2031 11/27/2021, 06/25/2017 RSV Immunization Adult Patients (1 - 1-dose 75+ series) 2066 MMR Vaccines Aged Out 01/24/2022 No longer [...] on patient's age to complete this topic Insurance MEDICAID - [place] Care Teams Glass Cut Off Supervisor Relationship Specialty Start Date End Date Mile Aceves MD [address] [place] [phone] PCP - General Internal Medicine 04/28/25
--- OUTSIDE RECORDS SUMMARY | 2025-09-07 18:29 | XMS_ITS | Continuity of Care Document ---
Author Organization [place] - [facility], [facility] Address [address] [place] [address] Care Team Providers Care Mobile Pet Groomer Name Role Phone ANDREW SOLIS Primary Care Provider Assessment Encounter Date Assessment Date Assessment LastModified by Organization Details LastModified Time 07/22/2025 07/22/2025 35 year old female presents for evaluation of epistaxis. Anterior rhinoscopy is notable for dry and erythematous nasal mucosa without a prominent blood vessel or source of bleeding that requires cautery in the office today. Recommend using a saline nasal spray at least four times daily, followed by saline gel after every use to help retain moisture in the nose, in addition to a humidifier at home. If nosebleeds persist despite direct pressure to the base of the nose, patient was instructed to soak a cotton ball with oxymetazoline (Afrin) and insert it into the affected nostril while applying pressure. Epistaxis pamphlet was provided. Patient may return to the office as needed or go to the emergency room if episodes are severe. All questions were answered. [email or web address] Not available 07/22/2025 22:49:59 Plan of Treatment Reminders Order Date Submit Date Provider Last Modified By Organization Details Last Modified Time Details Appointments None record ed. Lab None record ed. Referral None record ed. Procedures None record ed. Surgeries None record ed. Imaging None record ed. Medication Orders None record ed. Patient TargetsNo targets recorded. Patient InstructionsNo instructions recorded. Reason for Referral None Reported. Problems Name Problem SNOMED Code Status Onset Date Resolution Date Notes Provider Name and Address Organization Details Recorded Time Snoring 19002872 Active 2017 Snoring; Note: Date Diagnosed: 06/26/2018 6:17 PM (R06.83) Not Available [facility] 4 03:11:02 Obstructi ve sleep apnea syndrome 93729280 Active 2017 Obstructiv e sleep apnea (adult) (pediatric ); Note: Date Diagnosed: 06/26/2018 6:17 PM (G47.33) JEVON RAHMAN MD [address] [facility] [place] [address], [place], [phone] , [place] - [facility] 5 12:34:50 Allergic rhinitis 79864388 Active 2023 SRINIVASA MARQUEZ MD [address] [facility],[place] [address], [place], [phone] , [place] - [facility] 4 13:47:44 Nasal congestio n 77397584 Active 2023 SRINIVASA MARQUEZ MD [address] [place] [address],[place] [address], [place], [place], [phone] , [place] - [facility] 4 13:47:49 Obesity 673093749 Active 2023 JEVON RAHMAN MD [address] [facility],[place] [address], [place], [phone] , [place] - [facility] 5 12:34:53 Anterior epistaxis 755674588 Active 2024 RUBEN CORREA [address] [facility] [place] [address], [place], [phone] , [place] - [facility] 5 22:50:09 Nasal mucosa dry 14525909 Active 2024 RUBEN CORREA [address] [facility],[place] [address], [place], [phone] , [place] - [facility] 5 22:50:18 Problem Notes None recorded. Procedures Surgical History Date Name Laterality Status Provider Name and Address Organization Details Recorded Time 04/28/20 25 tonsillectomy completed JEVON RAHMAN MD [address] [facility],[place] [address], [place], [phone], [place] - [facility] 04/28/2025 10:27:05 01/22/20 25 FOL_DP completed JEVON RAHMAN MD [address] [facility],[place] [address], , [phone], [place] - [facility] 01/20/2025 12:38:47 09/14/20 24 Fiberoptic Laryngoscopy (Comprehensive) completed SRINIVASA BAH MD [address] [facility] [place] [address], , [phone], [facility] - [facility] 09/14/2024 13:54:10 08/13/20 23 laparoscopic sleeve gastrectomy completed SRINIVASA BAH MD [address] [facility] [place],[facility] [address], , [phone], [facility] - [facility] 09/14/2024 13:47:15 Imaging Results None recorded. Procedure Notes None recorded. Medical Equipment None Reported. Allergies No known drug allergies Medications Name Sig Start Date Stop Date Status Note LastModified by Organization Details LastModified Time amoxicillin 500 mg capsule 09/14 completed Not Available Not Available Not Available budesonide 32 mcg/actuati on nasal spray Take 1 spray twice a day by nasal route. 2023 active Not Available Not Available Not Avai lable albuterol sulfate 2.5 mg/3 mL (0.083 %) solution for nebulizatio n INHALE 3ML BY MOUTH VIA NEBUILZER EVERY 6 HOURS NEEDED FOR WHEEZING AND SHORTNESS OF BREATH active Not Available Not Available No t Available azithromyci n 250 mg tablet TAKE 2 TABLETS BY MOUTH 1 TIME FOR 1 DAY THEN TAKE 1 TABLET BY MOUTH 1 TIME PER DAY FOR 4 DAYS 01/21 completed Not Available Not Available Not Available fluconazole 150 mg tablet TAKE 1 TABLET BY MOUTH ONCE MAY REPEAT IN 72 HOURS active Not Available Not Available No t Available hydrocodone 5 mg-acetamin ophen 325 mg tablet TAKE 1 TABLET BY MOUTH EVERY 6 HOURS NEEDED FOR PAIN 09/14 completed Not Available Not Available Not Available Nystop 100,000 unit/gram topical powder APPLY 1 APPLICATI ON TOPICALLY TWICE DAILY APPLY TO RASHES AND SKIN FOLDS 09/14 completed Not Available Not Available Not Available prednisone 20 mg tablet 01/21 completed Not Available Not Available Not Available clobetasol 0.05 % topical cream APPLY TOPICALLY TO THE AFFECTED AREA TWICE DAILY active Not Available Not Available No t Available metronidazo le 500 mg tablet TAKE 1 TABLET BY MOUTH TWICE DAILY FOR 7 DAYS 07/20 completed Not Available Not Available Not Available acetaminoph en 500 mg tablet TAKE 1 TABLET BY MOUTH EVERY 8 HOURS NEEDED FOR MILD OR MODERATE PAIN FOR UP TO 5 DAYS 09/14 completed Not Available Not Available Not Available acetaminoph en ER 650 mg tablet,exte nded release active Not Available Not Available Not Available nystatin 100,000 unit/gram topical cream APPLY TOPICALLY TWICE DAILY FOR 7 DAYS. APPLY AT ONSET OF RASHES IN SKIN FOLDS active Not Available Not Available No t Available clotrimazol e-betametha sone 1 %-0.05 % topical cream APPLY TOPICALLY TO THE AFFECTED AREA TWICE DAILY active Not Available Not Available No t Available lidocaine 5 % topical patch APPLY 1 PATCH EVERY DAY TO THE AFFECTED AREA REMOVE AND DISCARD WITHIN 12 HOURS OR DIRECTED active Not Available Not Available No t Available montelukast 10 mg tablet TAKE 1 TABLET BY MOUTH AT BEDTIME 09/14 completed Not Available Not Available Not Available hydroxyzine HCl 25 mg tablet active Not Available Not Available Not Available ibuprofen 600 mg tablet TAKE 1 TABLET BY MOUTH EVERY 6 HOURS NEEDED FOR PAIN 09/14 completed Not Available Not Available Not Available ondansetron 4 mg disintegrat ing tablet DISSOLVE 1 TABLET ON THE TONGUE EVERY 8 HOURS NEEDED FOR NAUSEA OR VOMITING 01/21 completed Not Available Not Available Not Available fluticasone propionate 50 mcg/actuati on nasal [...] Not Available Not Available No t Available Zepbound 5 mg/0.5 mL subcutaneou s pen injector INJECT 5MG SUBCUTANE OUS ONCE WEEKLY active Not Available Not Available No t Available Zepbound 2.5 mg/0.5 mL subcutaneou s pen injector ADMINISTE R 2.5 MG UNDER THE SKIN 1 TIME EVERY WEEK 07/22 completed Not Available Not Available Not Available Vitals Date Recorded Body height Body mass index (BMI) Body weight Provider Name and Address Organization Details Last Updated DateTime 07/22/2025 170.18 cm 32 kg/m2 99878.84 g Kathy Peace [facility] 07/22/2025 16:01:48 Social History None recorded. Functional Status None recorded. Mental Status None recorded. Family History Nothing Reported. Medical History Condition Response Allergies/Hayfever N Heart Problems N Anxiety N Tonsil Infections N Emphysema N Migraines N Thyroid Problems N Glaucoma N Developmental Delay N Depression N COPD N Nasal or Sinus Problems Y Anemia N Immune System Disorder N Anesthesia Complications N Heart Attack (PR) N Other Skin Condition N Diabetes N Rhinitis N Bleeding Disorder N Food Allergy N Hearing Loss N Arthritis N Hyperlipidemia N Cancer N Stroke N Dementia N Nasal polyps N Asthma Y Sleep Disorder N High Cholesterol N GERD/Reflux N Liver Disease N Headaches N Fibromyalgia N Hypertension N Speech Delay N Kidney Disease N Gynecological HistoryNo gynecological history recorded. Obstetrics History GPAL:G 0 P 0 0 0 0 Past Encounters Encounter ID Performer Location Encounter Start Date Encounter Closed Date Diagnosis/Indication Diagnosis SNOMED-CT Code Diagnosis ICD10 Code Diagnosis IMO Codes Diagnosis Note [id number] RUBEN CORREA [facility] on [address] [place] [phone] 07/22/2025 15:57:12 07/24/2025 14:19:52 Anterior epistaxis 412707772 R04.0 19979998 Nasal mucosa dry 3100299 2 J34.89 496364 Health Concerns Section Related Observation LastModified by Organization Detai ls LastModified Time None Recorded Concern Status LastModified by Organization Details LastModified Time None Recorded Payers Encounter Date Sequence Insurance Name Policy Number Policy Hickman Covered Member ID Hickman Member ID Guarantor Name 07/22/2025 1 [place] [facility] Aline Chavez [id number] Aline Chavez Notes Date Note Type Note Provider Name and Address Organization Details Recorded Time 07/22/2025 text/html ROS as noted in the HPI 35 year old female presents for evaluation of epistaxis. Patient reports this has been ongoing for months. She experiences several episodes a week, the most recent being yesterday where she had 3 at work and 1 at home. Patient has a humidifier at home, but does not use saline solution. No personal or family history of blood clotting disorders. Blood pressure is usually good. MARTHA DUQUE MD [address] [place] [address], [phone], [facility] - [facility] 07/23/2025 07:14:25 OBGyn Episode No OBEpisode recorded.
--- OUTSIDE RECORDS SUMMARY | 2025-09-07 18:29 | XMS_ITS | Encounter Summary ---
Author Organization [employer] Address [address] [facility] [address] [place] [address] Care Team Providers Care Director Of Cardiac Rehabilitation Name Role Phone Mile Aceves MD Primary Care Provide r Encounter Details Date Type Department Care Team ([facility] st Contact Info) Description 08/06/2024 Orders Only [facility] [address] [place] [address] Priyanka Omalley, DDS [address] [place] [address] Social History Tobacco Use Types Packs/Day Years [...] as of this encounter Plan of Treatment Not on file documented as of this encounter Visit Diagnoses Not on filedocumented in this encounter Additional Health Concerns Assessment Noted Time PHQ-9 Depression Total Score: 0 01/27/20 24 3:36 PM EDT documented as of this encounter Care Teams Director Of Cardiac Rehabilitation Relationship Specialty Start Date End Date Mile Aceves MD [address] [place] [address] PCP - General Family Medicine 09/01/19 documented as of this encounter
--- OUTSIDE RECORDS SUMMARY | 2025-09-07 18:29 | XMS_ITS | Clinical Summary ---
Author Organization [employer] Address [address] [place] [address] [address] [place] [address] Care Team Providers Care Personal Lines Advisor Name Role Phone Mile Aceves MD Primary Care Provide r Allergies No known active allergies Medications Ventolin HFA 108 (90 Base) MCG/ACT inhaler Inhale 2 puffs every 4 (four) hours if needed. 023 Active budesonide (Pulmicort Flexhaler) 90 MCG/ACT inhaler Inhale 2 puffs every 12 (twelve) hours. 021 Active fluticasone (Flonase) 50 MCG/ACT nasal spray Administer into affected nostril(s). 022 Active budesonide (Pulmicort) 0.25 MG/2ML nebulizer solution Inhale 0.25 mg. 022 Active predniSONE (Deltasone) 20 MG tablet Take 20 mg by mouth in the morning. Active loratadine (Claritin) 10 MG tabletIndicati ons:Seasonal allergies Take 1 tablet (10 mg) by mouth if needed each day for allergies. 30 tablet 2 024 Active fluticasone (Flonase Allergy Relief) 50 MCG/ACT nasal spray Administer 1 spray into each nostril Once per day. Shake gently. Before first use, prime pump. After use, clean tip and replace cap. 16 g 1 024 Active Multiple Vitamin (multivitamin) tablet Take 1 tablet by mouth Once per day. Active albuterol (2.5 MG/3ML) 0.083% nebulizer solution Take 3 mL (2.5 mg) by nebulization every 6 (six) hours if needed for wheezing or shortness of breath. 75 mL 1 025 2025 Active azithromycin (Zithromax Z-Osmar) 250 MG tablet Take 2 tablets once on day 1, then 1 tablet 1x/day for 4 days. 6 tablet Active clobetasol (Temovate) 0.05 % creamIndicatio ns:Rash Apply topically 2 times daily. 45 g 1 Active hydrOXYzine HCl (Atarax) 25 MG tabletIndicati ons:Rash Take 1 tablet (25 mg) by mouth 4 times daily. 30 tablet Active phentermine 15 MG capsuleIndicat ions:Class 1 obesity due to excess calories with serious comorbidity and body mass index (BMI) of 31.0 to 31.9 in adult TAKE 1 CAPSULE(15 MG) BY MOUTH BEFORE BREAKFAST 30 capsule Active lidocaine (Lidoderm) 5 % patch Apply 1 patch topically Once per day. Remove & discard patch within 12 hours or as directed by MD. 30 patch 2 025 2025 Active acetaminophen (Tylenol 8 Hour) 650 MG ER tabletIndicati ons:Acute pain of left knee Take 2 tablets (1,300 mg) by mouth every 8 (eight) hours if needed for moderate pain. Do not crush, chew, or split. 30 tablet 025 Active ibuprofen 400 MG tabletIndicati ons:Acute pain of left knee Take 1 tablet (400 mg) by mouth every 6 (six) hours if needed for moderate pain or fever for up to 30 doses. 30 tablet 025 Active Tirzepatide-We ight Management (Zepbound) 10 MG/0.5ML solution auto-injectorI ndications:Cla ss 1 obesity due to excess calories with serious comorbidity and body mass index (BMI) of 31.0 to 31.9 in adult,Obstruct gem sleep apnea syndrome Inject 0.5 mL (10 mg) under the skin every 7 (seven) days. 2 mL 025 Active Tirzepatide-We ight Management (Zepbound) 7.5 MG/0.5ML solution auto-injectorI ndications:Cla ss 1 obesity due to excess calories with serious comorbidity and body mass index (BMI) of 31.0 to 31.9 in adult,Obstruct gem sleep apnea syndrome Inject 0.5 mL (7.5 mg) under the skin 1 (one) time per week. INJECT ONE PEN (=7.5 MG) SUBCUTANEOUSLY ONCE A WEEK 2 mL 025 2024 Discontinued Active Problems Problem Noted Date Diagnosed Date [...] Continue tot follow with bariatric specialist and prover Seasonal allergies 01/27/2024 Gastroesophageal reflux disease without [...] to follow with sleep medicine Severe obesity (CMS/HCC) 01/17/2023 Assessment & Plan (01/17/2023 1:52 PM [...] appointment Health care maintenance 01/17/2023 Morbid obesity (CMS/HCC) 10/09/2018 Assessment & Plan (07/04/2023 4:38 PM EDT): Continue to follow with specialist and prover RTC after surgery Assessment & Plan (01/17/2023 [...] Encounters Date Type Department Care Team Description 08/26/2025 Refill [facility] [address] [place] [address] Mile Aceves MD Class 1 obesity due to excess calories with serious comorbidity and body mass index (BMI) of 31.0 to 31.9 in adult; Obstructive sleep apnea syndrome 07/28/2025 Refill [facility] [address] [place] [address] Mile Aceves MD Class 1 obesity due to excess calories with serious comorbidity and body mass index (BMI) of 31.0 to 31.9 in adult; Obstructive sleep apnea syndrome 07/01/2025 Refill [facility] [address] [place] [address] Mile Aceves MD Class 1 obesity due to excess calories with serious comorbidity and body mass index (BMI) of 31.0 to 31.9 in adult; Obstructive sleep apnea syndrome from Last 3 Months Immunizations Immunization Administration [...] 06/03/2025 10:12 AM EDT Plan of Treatment Health Maintenance Due Date Last Done Comments HIV Screening 1991 Family Planning (PISQ) 2006 HPV Vaccines (1 - 3-dose series) 2006 Hepatitis C Screening 2009 Hepatitis B Vaccines (1 of 3 - 19+ 3-dose series) 2010 Dental Oral Exam 11/06/2024 05/05/2024, 09/2018, 05/22/2018 [...] X-Ray: Full Mouth 05/06/2027 024, 06/26/2019, 05/22/2018 Cervical Cancer Screening 10/30/2028 HPV/Cotest 10/30/2028 10/30/2023 Pap Smear 10/30/2028 10/30/2023, 01/19/2021 Lipid Panel 04/03/2030 04/03/2025, 02/04/2023 DTaP/Tdap/Td Vaccines [...] Procedure Name Priority Date/Time Associated Diagnosis Comments LIPID PANEL, STANDARD Routine 04/03/2025 9:18 AM EDT Preop examination PROPHYLAXIS - ADULT Routine 05/05/2024 1 0:00 AM EDT Dental calculus Dental plaque INTRAORAL - COMPLETE SERIES OF RADIOGRAPHIC IMAGES Routine 05/05/2024 10:00 AM EDT PERIODIC ORAL EVALUATION - ESTABLISHED PATIENT Routine 05/05/2024 10:00 AM EDT HM PAP/HPV Routine 10/30/2023 from Last 3 Months or Most Recently Relevant to Health Maintenance Results * Lipid Panel, Standard (04/03/2025 9:18 AM EDT) Triglycerides 98 <150 mg/dL [facility] Comment:Desirable Triglyceri de: less than 150 mg/dLBorderline High Triglyceride 150-199 mg/dLHigh Triglyceride: 200-499 mg/dLVery High Triglyceride: greater than or equal to 5OO mg/dL Cholesterol 160 <200 mg/dL [facility] Comment:Desirable Cholestero l: less than 200 mg/dLBorderline High Cholesterol: 200-239 mg/dLHigh Cholesterol: greater than 239 mg/dL LDL Cholesterol Calculated 97 <100 mg/dL [facility] Comment:Desirable LDL: less than 100 mg/dLNear Optimal/Above Optimal LDL: 110- 129 mg/dLBorderline High LDL: 130-159 mg/dLHigh LDL: 160-189 mg/dLVery High LDL: greater than or equal to 190 mg/dL HDL Cholesterol 44 >40 mg/dL [facility] Comment:Desirable HDL: great er than 40 mg/dL Note: This HDL assay may give artificially low results in patients with liver disease. Blood Venous blood specimen / Unknown 04/03/2025 9:18 AM EDT 04/03/2025 9:18 AM EDT Mile Powers MD LAB BLOOD ORDERABLES Final Result [facility] [address] [place] [phone] * PAP/HPV (10/30/2023) Pap Smear 1. NILM 1. NILM HPV Not Detected Undetected, Indeterminat e, Quantitative , Not Detected Historical Provider HEALTH MAINTENANCE Edited Result - Final from Last 3 Months or Most Recently Relevant to Health Maintenance Insurance [employer] [id number] STAND ADULT Care Teams Personal Lines Advisor Relationship Specialty Start Date End Date Mile Aceves MD [address] [place] [phone] PCP - General Family Medicine 09/01/19
--- OUTSIDE RECORDS SUMMARY | 2025-09-07 18:29 | XMS_ITS | Encounter Summary ---
Author Organization [employer] Address [address] [place] [address] [address] [place] [address] Care Team Providers Care Honey Liquefier Name Role Phone Mile Aceves MD Primary Care Provide r Encounter Details Date Type Department Care Team (Latest Contact Info) Description 06/23/2019 Abstract [facility] CONVERSIONS Dental, Provider, DDS Social History Tobacco [...] on filedocumented in this encounter Care Teams Honey Liquefier Relationship Specialty Start Date End Date Mile Aceves MD [address] [place] [id number] PCP - General Family Medicine 09/01/19 documented as of this encounter
--- OUTSIDE RECORDS SUMMARY | 2025-09-07 18:29 | XMS_ITS | Data Portability ---
Author Organization [place] - [facility], Allergy Address [address] [address] Care Team Providers Care Wall Insulation Sprayer Name Role Phone ANDREW SOLIS Primary Care [...] moist. Will arrange for follow-up sleep study. rom Not available 09/14/2024 13:51:52 01/21/2025 01/21/2025 The patient meet s criteria for tonsillectomy. The surgery will be done under general anesthesia with no cuts through the skin. After the surgery the patient should expect temporary bad breath, ear aches, still neck and the worst sore throat of their life. It will typically last up to 2 weeks. There is a 5% risk of bleeding during the healing process when the scab falls off. If this occurs, they are encouraged to call the office to discuss management. Occasionally it requires a trip to the emergency room and or operating room to control the bleeding. Additional risks of dehydration, hospital readmission, throat pain, voice change, swallowing dysfunction and velopharyngeal insufficiency are also possible. Pain control with alternating doses of Tylenol (acetaminophen) and Motrin (ibuprofen) [id number] every 3 hours are recommended. Use of narcotics and antibiotics are not recommended. Usually 1 week out of school or work is needed to recover, and then they may return with light activities for an additional week before resuming regular routine. They will contact our office to schedule at a mutually convenient time. All questions were answered. [email or web address] Not available 01/21/2025 16:05:03 07/22/2025 07/22/2025 35 year old female presents [...] recorde d. Procedures None recorde d. Surgeries tonsill ectomy (SURG) 2024 025 9 Not available 5 08:37:13 Imaging polysom nogram, diagnos tic, 6 yrs or older 2023 024 [email or web address] [facility] (Peds & Adult), [address] [facility], [place], [address], 5 15:45:44 Medication Orders budeson mulugeta 32 mcg/act uation nasal spray 2023 024 [id number], [address] [place], [place], [id number], 4 13:52:27 Patient TargetsNo targets recorded. Patient InstructionsNo instructions recorded. Reason for Referral None Reported. Results Created Date Observation Date Name Description Value Unit Range Abnormal Flag Note LastModifiedBy Organization Detail LastModifiedTime 04/28/2004/28/2025 TISSU E EXAM .note See Note Origi nal Order ing Provi chago: SHABNAM L PLOSK Y [facility] - [address], Lizbeth ochoa d, [facility] [place] [address] Not Available [facility] [address] [place], [address], 04/29/2025 13:51:07 04/28/20 25 04/28/2025 TISSU E EXAM final diagnosis A. Tonsil , Right- tonsil ectomy : -REAC TIVE LYMPH OID HYPER PLASI A B. Tonsi l, Left- tonsi lecto my: -REAC TIVE LYMPH OID HYPER PLASI A Elect gautam vela by Katie goss MD on 025 at 1:49 PM Not Available [facility] [address] [place], [address], 04/29/2025 13:51:07 04/28/20 25 04/28/2025 TISSU E EXAM gross description A. Tonsil , Right, : Label ed right tonsi l . Recei horacio in forma melvin is a soft, fortune-p ink, lobul ar tonsi l measu ring 3.0 x 1.6 x 1.5 cm, with minim al attac hed blood clot. The mucos a is shiny and pink. The base is caute rized . The cut surfa kiley are soft and fortune-p ink, with a crypt ic archi tectu re. The crypt s conta in minim al soft, yello w debri s. A repre senta tive secti on is submi tted in one casse tte. B. Tonsi l, Left, : Label ed left tonsi l . Recei horacio in forma melvin, with telfa , is a soft, fortune-p ink, lobul ar tonsi l measu ring 2.5 x 1.8 x 1.5 cm, with minim al attac hed blood clot. The mucos a is shiny and pink. The base is caute rized . The cut surfa kiley are soft and fortune-p ink, with a crypt ic archi tectu re. The crypt s conta in a small amoun t of soft, yello w debri s. A repre senta tive secti on is submi tted in one casse tte. TS Not Available [facility] [address] [place], [address], 04/29/2025 13:51:07 04/28/20 25 04/28/2025 TISSU E EXAM disclaimer Unles s other covington speci fied, all tissu e is 10% NB forma melvin fixed and paraf fin embed ded. Not Available [facility] [address] [place], [address], 04/29/2025 13:51:07 12/02/19 25 11/25/2024 polys omnog mary, diagn ostic , 6 yrs or older No observ ation record ed. [email or web address] [place], [address], 12/03/2024 11:33:28 04/28/20 25 04/28/2025 H&P No observ ation record ed. [facility] [address] [facility], [place], [address], 04/28/2025 08:28:56 04/28/20 25 04/28/2025 op note No observ ation record ed. [facility] [address] [facility], [place], [address], 04/28/2025 11:53:53 Result Notes None recorded. Problems Name Problem SNOMED Code Status Onset Date Resolution Date Notes Provider Name and Address Organization Details Recorded Time Snoring 47197539 Active 2017 Snoring; Note: Date Diagnosed: 06/26/2018 6:17 PM (R06.83) Not Available [facility] 03:11:02 Obstructi ve sleep apnea syndrome 18289249 Active 2017 Obstructiv e sleep apnea (adult) (pediatric ); Note: Date Diagnosed: 06/26/2018 6:17 PM (G47.33) JEVON RAHMAN MD [address] [facility],[address] [place] [address], [place], [address] , [place] [facility] 5 12:34:50 Allergic rhinitis 15481231 Active 2023 SRINIVASA MARQUEZ MD [address] [facility],[place] [address], [place], [address] , [place] [facility] [place] 4 13:47:44 Nasal congestio n 13776284 Active 2023 SRINIVASA MARQUEZ MD [address] [facility],[place] [address], [place], [address] , [place] [facility] [place] 4 13:47:49 Obesity 306748739 Active 2023 JEVON RAHMAN MD [address] [facility],[place] [address], [place], [address] , [place] [facility] 5 12:34:53 Anterior epistaxis 616165202 Active 2024 RUBEN CORREA [address] [facility] [address], [place], [address] , [facility] - [facility] 22:50:09 Nasal mucosa dry 23692051 Active 2024 RUBEN CORREA [address] [facility] [address], [place], [address] , [facility] - [facility] 22:50:18 Problem Notes None recorded. Procedures Surgical History Date Name Laterality Status Provider Name and Address Organization Details Recorded Time 04/28/20 25 tonsillectomy completed JEVON RAHMAN MD [address] [facility],[place] [address], [place], [address], [facility] 04/28/2025 10:27:05 01/22/20 25 FOL_DP completed JEVON RAHMAN MD [address] [facility],[place] [address], [place], [address], [facility] 01/20/2025 12:38:47 09/14/20 24 Fiberoptic Laryngoscopy (Comprehensive) completed SRINIVASA BAH MD [address] [facility],[place] [address], [place], [address], [facility] 09/14/2024 13:54:10 08/13/20 23 laparoscopic sleeve gastrectomy completed SRINIVASA BAH MD [address] [facility],[address], [address], [facility] - [facility] 09/14/2024 13:47:15 Imaging Results None recorded. [...] and Address Organization Details Last Updated DateTime 01/21/2025 170.18 cm 31.3 kg/m2 58859.47 g MACARIO AHUJA [place] - [facility] 01/21/2025 15:36:20 Date Recorded Body height Body mass index (BMI) Body weight Provider Name and Address Organization Details Last Updated DateTime 07/22/2025 170.18 cm 32 kg/m2 06613.84 g Kathy Jerry [facility] 07/22/2025 16:01:48 Date Recorded Body height Body mass index (BMI) Body weight Provider Name and Address Organization Details Last Updated DateTime 09/14/2024 170.18 cm 30.5 kg/m2 33803.51 j carlos Dillon [place] - [facility] 09/14/2024 13:25:55 Social History None recorded. [...] Disorder N Anesthesia Complications N Heart Attack (HI) N Other Skin Condition N Diabetes N [...] ICD10 Code Diagnosis IMO Codes Diagnosis Note [id number] SRINIVASA MARQUEZ MD [facility] [address] [address] 09/14/2024 13:12:03 09/14/2024 13:57:04 Allergic rhinitis 09000414 J30.9 Nasal congestion 8236105 0 R09.81 Obstructiv e sleep apnea syndrome 27011752 G47.33 There is evidence of moderate tonsil hypertroph y, anterior open bite deformity and moderate tongue position. Depending on the degree of apnea she might benefit from tonsillect sally and reduction of the residual adenoid tissue. Obesity 193241242 E66.9 [id number] JEVON RAHMAN MD [facility] [address] [address] 01/21/2025 15:08:49 01/21/2025 16:05:06 Obstructive sleep apnea syndrome 59792231 G47.33 Patient has moderate obstructiv e sleep apnea. Tonsils are 3+ in size. Evaluation of treatment options including considerat ion of the inspire or addressing her tonsil hypertroph y at this time. Given her age I recommend we remove the large tonsils first and then reassess with a repeat sleep study postoperat ively [facility], sleep center [facility] Obesity 864583376 E66.9 [id number] RUBEN CORREA [facility] on [address] [place] [address] 07/22/2025 15:57:12 07/24/2025 14:19:52 Anterior epistaxis 316766092 R04.0 01952081 Nasal mucosa dry 7186389 2 J34.89 143223 Health Concerns Section Related Observation LastModified by Organization Detai ls LastModified Time None Recorded Concern Status LastModified by Organization Details LastModified Time None Recorded Advance Directives Directive None Recorded Payers Insurance Date Sequence Insurance Name Policy Number Policy Hickman Covered Member ID Hickman Member ID Guarantor Name 08/03/2025 1 [place] [facility] Aline Chavez [id number] Aline Chavez Notes Date Note Type Note Provider Name and Address Organization Details Recorded Time 09/14/2024 text/html ROS as noted in the HPI Patient reports history of asthma and allergy. [...] since lost 120 pounds. SRINIVASA BAH MD [address] [place] [address], [address], [facility] - [facility] 09/14/2024 13:55:27 01/21/2025 text/html ROS as noted in the HPI Patient of Dr BahOSA 11/25/24 Split night PSG [facility] 30[facility]I 20.4central and mixed CPAP trial - intolerant, gets sick with each attempt to use device, asthma flare. the straps cause skin breakdown gastric sleeve - lost 130no prior throat surgeryoral appliance - jaw pain and generally mouth breather, not tolerated JEVON RAHMAN MD [address] [place] [address], [place], [address], [place] - [facility] 01/21/2025 16:06:00 07/22/2025 text/html ROS as noted in the [...] pressure is usually good. MARTHA DUQUE MD [address] [facility],[place] [address], [place], [address], [facility] 07/23/2025 07:14:25 OBGyn Episode No OBEpisode recorded.
== END 2025-09-07 14:37 | disposition home or self-care (01) ==
LOC: HO.HOS 14:15
PROVIDERS: PCP Internal Medicine; Visit Provider Orthopaedic Surgery
DX: M25.562 Pain in left knee (principal); M17.12 Unilateral primary osteoarthritis, left knee
CPT/HCPCS: 20610; 99213

== ENCOUNTER → 2025-09-07 14:14 | Outpatient (BNVA) | payer MEDICAID, SELFPAY | PROVIDERS: PCP Internal Medicine; Visit Provider Orthopaedic Surgery | DX: M17.12 Unilateral primary osteoarthritis, left knee (principal) | CPT/HCPCS: 20610; 99212; J2003; J7323 ==

== ENCOUNTER 2025-09-14 14:30 | Outpatient (AMB) | payer MEDICAID, SELFPAY ==
--- NOTE | 2025-09-14 14:33 | MHC.OFFVIS ---
Intake Visit Reasons: Left knee Euflexxa #2 Intake Note: Aline is a 35 year old female who presents today for her left knee Euflexxa injection #2. She states that she got mild relief from the 1st injection. She continues with her home exercise program. Allergies No Known Allergies (No Known Allergies*) Allergy (Verified 06/09/25 14:32) Seasonal Allergies Allergy (Unknown, Uncoded 03/03/25 14:41) itching Medication List - Last Reconciled 09/14/25 by Dominic Landrum MD montelukast 10 mg PO BEDTIME nebulizers As directed [facility] Medical History Chronic allergic rhinitis COVID-19 Pneumonia GILBERTO (obstructive sleep apnea) Irregular heart beat Sleep apnea Asthma Surgical History History of section Family History (Updated 11/28/21 @ 15:10 by GABI Boland) Father No problems noted. Mother No problems noted. Social History (Updated 12/28/24 @ 11:39 by GRISELDA Carrera) Household Members: Spouse and Children Alcohol intake: never Patient Tobacco Use Status: Never used Tobacco Current occupational status: employed Current occupation: right handed / [employer] Physical Exam Extrem Other: Left knee examination shows a minimal effusion, palpable crepitus with range of motion, pain with range of motion, no instability Office Procedures AMB Joint Injection/Aspiration Joint Injection/Aspiration Primary Site: Left Knee Prep: site was prepped using aseptic technique Injected: 20 mg of, Euflexxa, with 3 mL of and 1% plain Lidocaine Procedure: The patient tolerated the procedure well Coding 23798 - Large joint Procedure code (CPT) selection complete Assessment & Plan Assessment & Plan (1) Osteoarthritis of left knee: Code(s): M17.12 - Unilateral primary osteoarthritis, left knee Category: Medical Plan Aline presents with left knee pain due to osteoarthritis. The risks and benefits of a 2nd Euflexxa viscosupplementation injection were discussed at length with the patient. The patient wished to proceed. She tolerated the injection well. She will continue with her home exercise program. She will follow up next week as scheduled. Feel free to call me at any time should questions regarding her orthopedic management arise. Orders: Orders AMB Joint Injection/Aspiration Today M17.12 - Unilateral primary osteoarthritis, left knee Coding Level of Care Code Procedure Only Diagnoses Osteoarthritis of left knee M17.12 CPT Codes Coding - 68860 Large joint: 06147 - Large joint ([id number])
--- OUTSIDE RECORDS SUMMARY | 2025-09-14 15:46 | XMS_ITS | Encounter Summary ---
Author Organization [employer] Address [address] [place] [address] [address] [place] [address] Care Team Providers Care Labor Gang Supervisor Name Role Phone Mile Aceves MD [...] on filedocumented in this encounter Care Teams Labor Gang Supervisor Relationship Specialty Start Date End Date Mile Aceves MD [address] [place] [id number] PCP - General Family Medicine 09/01/19 documented as of this encounter
--- OUTSIDE RECORDS SUMMARY | 2025-09-14 15:46 | XMS_ITS | Encounter Summary ---
Author Organization [employer] Address [address] [place] [address] [address] [place] [address] Care Team Providers Care Photographic Lithographer Name Role Phone Mile Aceves MD Primary Care Provide r Reason for Visit * Reason Onset Date Comments Nurse Triage 09/13/2025 Encounter Details Date Type Department Care Team ([facility] st Contact Info) Description 09/13/2025 Telephone [facility] MED[facility]INE [address] [place] [address] Mile Aceves MD [address] [place] [address] Nurse Triage Social History Tobacco Use Types Packs/Day Years [...] encounter Miscellaneous Notes * Telephone Encounter - Michelle Monae RN - 09/13/2025 1:55 PM EST TC returned to patient [phone] in regards to below message. Patient reports she started zepbound 10mg dose on 09/10/25 and has had headaches since taking this dose. Patient reports today she developed diarrhea as well. Patient advised at the higher doses it common to be at higher risk for sideeffects however they usually do not last with continued use of medication as our bodies adjust. Emma ent was advised to take ibuprofen or tylenol as needed for headache and to keep up with fluid intake to prevent dehydration r/t diarrhea. Patient advised to continue with zepbound 10mg dose as scheduled on 09/17/25 and if s/s continue to return call to [facility] for dose to be decreased to previous dose.Patient verbalized understanding and did not have any further questions. Sending as FYI. * Telephone Encounter - Vern Linn - 09/13/2025 12:29 PM EST Symptom: Headache Outcome: Schedule an urgent appointment (within 4 hours) or talk to a nurse or provider soon Reason: Started within the past 3 days The caller accepted this outcome. Contact pt at [phone] documented in this encounter Plan of Treatment Not on file documented as of this encounter Visit Diagnoses Not on filedocumented in this encounter Additional Health Concerns Assessment Noted Time PHQ-9 Depression Total Score: 2 06/03/20 25 10:42 AM EDT documented as of this encounter Care Teams Photographic Lithographer Relationship Specialty Start Date End Date Mile Aceves MD [address] [place] [address] PCP - General Family Medicine 09/01/19 documented as of this encounter
--- OUTSIDE RECORDS SUMMARY | 2025-09-14 15:46 | XMS_ITS | Clinical Summary ---
Author Organization [employer] Address [address] [place] [address] [address] [place] [address] Care Team Providers Care Dish Room Worker Name Role Phone Mile Aceves MD Primary [...] Continue tot follow with bariatric specialist and central services tech Seasonal allergies 01/27/2024 Gastroesophageal reflux disease without [...] EDT): Continue to follow with specialist and central services tech RTC after surgery Assessment & Plan (01/17/2023 [...] Encounters Date Type Department Care Team Description 09/13/[address] [facility] MEDICINE [address] [place], [place] [phone] Mile Aceves MD Nurse Triage 08/26/[address] [facility] MEDICINE [address] [place] [address] Mile Aceves MD Class 1 obesity due to excess calories with serious comorbidity and body mass index (BMI) of 31.0 to 31.9 in adult; Obstructive sleep apnea syndrome 07/28/[address] [facility] MEDICINE [address] [place] [address] Mile Aceves MD Class 1 obesity due to excess calories with serious comorbidity and body mass index (BMI) of 31.0 to 31.9 in adult; Obstructive sleep apnea syndrome 07/01/[address] [facility] [address] [place] [address] Mile Aceves MD Class 1 obesity due [...] 9:18 AM EDT) Triglycerides 98 <150 mg/dL [facility] Comment:Desirable Triglyceri de: less than 150 mg/dLBorderline High Triglyceride 150-199 mg/dLHigh Triglyceride: 200-499 mg/dLVery High Triglyceride: greater than or equal to 5OO mg/dL Cholesterol 160 <200 mg/dL [facility] Comment:Desirable Cholestero l: less than 200 mg/dLBorderline High Cholesterol: 200-239 mg/dLHigh Cholesterol: greater than 239 mg/dL LDL Cholesterol Calculated 97 <100 mg/dL [facility] Comment:Desirable LDL: less than 100 mg/dLNear Optimal/Above Optimal LDL: 110- 129 mg/dLBorderline High LDL: 130-159 mg/dLHigh LDL: 160-189 mg/dLVery High LDL: greater than or equal to 190 mg/dL HDL Cholesterol 44 >40 mg/dL [facility] Comment:Desirable HDL: great er than 40 mg/dL Note: This HDL assay may give artificially low results in patients with liver disease. Blood Venous blood specimen / Unknown 04/03/2025 9:18 AM EDT 04/03/2025 9:18 AM EDT Mile Powers MD LAB BLOOD ORDERABLES Final Result [facility] [address] [place] [phone] * PAP/HPV (10/30/2023) Pap Smear 1. NILM 1. NILM HPV Not Detected Undetected, Indeterminat e, Quantitative , Not Detected Historical Provider HEALTH MAINTENANCE Edited Result - Final from Last 3 Months or Most Recently Relevant to Health Maintenance Insurance [employer] AD[place] Care Teams Dish Room Worker Relationship Specialty Start Date End Date Mile Aceves MD [address] [place] [address] PCP - General Family Medicine 09/01/19
--- OUTSIDE RECORDS SUMMARY | 2025-09-14 15:46 | XMS_ITS | Data Portability ---
Author Organization [place] - [facility], Allergy Address [address] [address] Care Team Providers Care Cable Maintainer Name Role Phone ANDREW SOLIS Primary Care [...] doses of Tylenol (acetaminophen) and Motrin (ibuprofen) nuxpac-tnt-ydawt every 3 hours are recommended. Use of [...] tic, 6 yrs or older 2023 024 [email or web address] [facility] ([facility]eds & [facility]), [address] [facility], [place], [address], 5 15:45:44 Medication Orders budeson mulugeta 32 mcg/act uation nasal spray 2023 024 [id number], [address] [place], [place], [id number], 4 13:52:27 Patient TargetsNo targets recorded. Patient [...] [address] Josefina Aidae t, Lizbeth ochoa d, [facility] [place] [id number] Not Available [facility] [address] [place], [address], 04/29/2025 13:51:07 04/28/20 25 04/28/2025 TISSU E EXAM final diagnosis A. Tonsil , Right- tonsil ectomy : -REAC TIVE LYMPH OID HYPER PLASI A B. Tonsi l, Left- tonsi lecto my: -REAC TIVE LYMPH OID HYPER PLASI A Elect gautam vela by Katie goss MD on 025 at 1:49 PM Not Available [facility] [address] [place], [address], 04/29/2025 13:51:07 04/28/20 25 04/28/2025 TISSU E [...] in one casse tte. TS Not Available [facility] [address] [place], [address], 04/29/2025 13:51:07 04/28/20 25 04/28/2025 TISSU E EXAM disclaimer Unles s other covington speci fied, all tissu e is 10% NB forma melvin fixed and paraf fin embed ded. Not Available [facility] [address] [place], [address], 04/29/2025 13:51:07 12/02/19 25 11/25/2024 polys omnog mary, diagn ostic , 6 yrs or older No observ ation record ed. [email or web address] [place], [address], 12/03/2024 11:33:28 04/28/20 25 04/28/2025 H&P No observ ation record ed. [facility] [address] [facility], [place], [address], 04/28/2025 08:28:56 04/28/20 25 04/28/2025 op note No observ ation record ed. [facility] [address] [facility], [place], [address], 04/28/2025 11:53:53 Result Notes None recorded. Problems Name Problem SNOMED Code Status Onset Date Resolution Date Notes Provider Name and Address Organization Details Recorded Time Snoring 22438484 Active 2017 Snoring; Note: Date Diagnosed: 06/26/2018 6:17 PM (R06.83) Not Available [facility] 03:11:02 Obstructi ve sleep apnea syndrome 02383667 Active 2017 Obstructiv e sleep apnea (adult) (pediatric ); Note: Date Diagnosed: 06/26/2018 6:17 PM (G47.33) JEVON RAHMAN MD 100 [facility],[place] [address], [place], [address] , [place] - [facility] 5 12:34:50 Allergic rhinitis 43067907 Active 2023 SRINIVASA MARQUEZ MD 100 [facility],[place] [address], [place], [address] , [place] - [facility] [place] 4 13:47:44 Nasal congestio n 13883927 Active 2023 SRINIVASA MARQUEZ MD [address] [facility],[place] [address], [place], [address] , [place] - [facility] [place] 4 13:47:49 Obesity 232041639 Active 2023 JEVON RAHMAN MD [address] [facility],[place] [address], [place], [address] , [place] - [facility] 5 12:34:53 Anterior epistaxis 165602684 Active 2024 RUBEN CORREA [address] [facility],[place] [address], [place], [address] , [facility] - [facility] 22:50:09 Nasal mucosa dry 10094426 Active 2024 RUBEN CORREA [address] [facility] [address], [place], [address] , [facility] - [facility] 22:50:18 Problem Notes None recorded. Procedures Surgical History Date Name Laterality Status Provider Name and Address Organization Details Recorded Time 04/28/20 25 tonsillectomy completed JEVON RAHMAN MD [address] [facility],[place] [address], [place], [address], [facility] 04/28/2025 10:27:05 01/22/20 25 FOL_DP completed JEVON RAHMAN MD [address] [facility],[place] [address], [place], [address], [facility] 01/20/2025 12:38:47 09/14/20 24 Fiberoptic Laryngoscopy (Comprehensive) completed SRINIVASA BAH MD [address] [facility],[place] [address], [place], [address], [facility] 09/14/2024 13:54:10 08/13/20 23 laparoscopic sleeve gastrectomy completed SRINIVASA BAH MD 100 [facility],[address], [address], [facility] - [facility] 09/14/2024 13:47:15 Imaging Results None recorded. Procedure [...] Updated DateTime 01/21/2025 170.18 cm 31.3 kg/m2 19186.47 g MACARIO AHUJA [place] - [facility] 01/21/2025 15:36:20 Date Recorded Body height Body mass index (BMI) Body weight Provider Name and Address Organization Details Last Updated DateTime 07/22/2025 170.18 cm 32 kg/m2 27191.84 g Kathy Jerry [facility] 07/22/2025 16:01:48 Date Recorded Body height Body mass index (BMI) Body weight Provider Name and Address Organization Details Last Updated DateTime 09/14/2024 170.18 cm 30.5 kg/m2 02671.51 j carlos Dillon [place] - [facility] 09/14/2024 13:25:55 Social History None recorded. Functional Status None recorded. Mental Status None recorded. Family History Nothing Reported. Medical History Condition Response Allergies/Hayfever N Heart Problems N Anxiety N Tonsil Infections N Emphysema N Migraines N Thyroid Problems N COPD N Depression N Developmental Delay N Glaucoma N Nasal or Sinus Problems Y Anemia N Immune System Disorder N Anesthesia Complications N Heart Attack ([place]) N Other Skin Condition N Diabetes N [...] ICD10 Code Diagnosis IMO Codes Diagnosis Note [id number] SRINIVASA MARQUEZ MD [facility] [address] [address] 09/14/2024 13:12:03 09/14/2024 13:57:04 Allergic rhinitis 40863341 J30.9 Nasal congestion 4550742 0 R09.81 Obstructiv e sleep apnea syndrome 55296103 G47.33 There is evidence of moderate tonsil hypertroph y, anterior open bite deformity and moderate tongue position. Depending on the degree of apnea she might benefit from tonsillect sally and reduction of the residual adenoid tissue. Obesity 803044289 E66.9 [id number] JEVON RAHMAN MD [facility] [address] [address] 01/21/2025 15:08:49 01/21/2025 16:05:06 Obstructive sleep apnea syndrome 90029474 G47.33 Patient has moderate obstructiv e sleep apnea. Tonsils are 3+ in size. Evaluation of treatment options including considerat ion of the inspire or addressing her tonsil hypertroph y at this time. Given her age I recommend we remove the large tonsils first and then reassess with a repeat sleep study postoperat ively AHI 20, sleep center [facility] Obesity 109956720 E66.9 48435 RUBEN CORREA [facility] on [address] [place] [address] 07/22/2025 15:57:12 07/24/2025 14:19:52 Anterior epistaxis 828411663 R04.0 66616384 Nasal mucosa dry 4519235 2 J34.89 821956 Health Concerns Section Related Observation LastModified by Organization Detai ls LastModified Time None Recorded Concern Status LastModified by Organization Details LastModified Time None Recorded Advance Directives Directive None Recorded Payers Insurance Date Sequence Insurance Name Policy Number Policy Hickman Covered Member ID Hickman Member ID Guarantor Name 08/03/2025 1 [place] [facility] Aline Chavez [id number] Aline Chavez Notes Date Note Type Note [...] since lost 120 pounds. SRINIVASA BAH MD [address] [place] [address], [address], [facility] - [facility] 09/14/2024 13:55:27 01/21/2025 text/html ROS as noted in the HPI Patient of Dr BahOSA 11/25/24 Split night PSG [facility] 30[facility]I 20.4central and mixed CPAP trial - intolerant, gets sick with each attempt to use device, asthma flare. the straps cause skin breakdown gastric sleeve - lost 130no prior throat surgeryoral appliance - jaw pain and generally mouth breather, not tolerated JEVON RAHMAN MD [address] [place], [place] [address], [place], [address], [place] - [facility] 01/21/2025 16:06:00 07/22/2025 text/html ROS as noted [...] is usually good. MARTHA DUQUE MD [address] [facility],[place] [address], [place], [address], [facility] 07/23/2025 07:14:25 OBGyn Episode No OBEpisode recorded.
--- OUTSIDE RECORDS SUMMARY | 2025-09-14 15:46 | XMS_ITS | Clinical Summary ---
Author Organization [facility] Address [address] [place] [address] Phone Care Team Providers Care Assault Boat Coxswain Name Role Phone Mile Aceves MD Primary [...] topic Insurance [place] - [place] Care Teams Assault Boat Coxswain Relationship Specialty Start Date End Date Mile Aceves MD [address] [place] [phone] PCP - General Internal Medicine 04/28/25
--- OUTSIDE RECORDS SUMMARY | 2025-09-14 15:46 | XMS_ITS | Continuity of Care Document ---
Author Organization [place] - [facility], [facility] Address [address] [facility] [place] [address] Care Team Providers Care Circuitry Negative Inspector Name Role Phone ANDREW SOLIS Primary Care [...] and Address Organization Details Recorded Time Snoring 41282380 Active 2017 Snoring; Note: Date Diagnosed: 06/26/2018 6:17 PM (R06.83) Not Available [facility] 4 03:11:02 Obstructi ve sleep apnea syndrome 09338467 Active 2017 Obstructiv e sleep apnea (adult) (pediatric ); Note: Date Diagnosed: 06/26/2018 6:17 PM (G47.33) JEVON RAHMAN MD [address] [facility] [address], [place], [address] , [place] - [facility] 5 12:34:50 Allergic rhinitis 96570652 Active 2023 SRINIVASA MARQUEZ MD 100 [facility],[place] [address], [place], [address] , [place] - [facility] 4 13:47:44 Nasal congestio n 51315957 Active 2023 SRINIVASA MARQUEZ MD [address] [place] [address],[place] [address], [place], [place], [address] , [place] - [facility] [place] 4 13:47:49 Obesity 962930198 Active 2023 JEVON RAHMAN MD 100 [facility],[place] [address], [place], [address] , [place] [facility] 5 12:34:53 Anterior epistaxis 005738087 Active 2024 RUBEN CORREA [address] [facility],[place] [address], [place], [address] , [place] [facility] 5 22:50:09 Nasal mucosa dry 73255819 Active 2024 RUBEN CORREA 100 [facility],[place] [address], [place], [address] , [place] [facility] 5 22:50:18 Problem Notes None recorded. Procedures Surgical History Date Name Laterality Status Provider Name and Address Organization Details Recorded Time 04/28/20 25 tonsillectomy completed JEVON RAHMAN MD 100 [facility],[place] [address], [place], [address], [place] - [facility] [place] 04/28/2025 10:27:05 01/22/20 25 FOL_DP completed JEVON RAHMAN MD 100 [facility],[place] [address], [place], [address], [place] - [facility] 01/20/2025 12:38:47 09/14/20 24 Fiberoptic Laryngoscopy (Comprehensive) completed SRINIVASA BAH MD [address] [facility],[place] [address], [place], [address], [facility] - [facility] 09/14/2024 13:54:10 08/13/20 23 laparoscopic sleeve gastrectomy completed SRINIVASA BAH MD [address] [facility] [address], [place], [address], [facility] - [facility] 09/14/2024 13:47:15 Imaging Results None recorded. Procedure [...] Updated DateTime 07/22/2025 170.18 cm 32 kg/m2 02841.84 g Kathy Peace [facility] 07/22/2025 16:01:48 Social History None recorded. Functional Status None recorded. Mental Status None recorded. Family History Nothing Reported. Medical History Condition Response Allergies/Hayfever N Heart Problems N Anxiety N Tonsil Infections N Emphysema N Migraines N Thyroid Problems N Depression N COPD N Developmental Delay N Glaucoma N Nasal [...] ICD10 Code Diagnosis IMO Codes Diagnosis Note [id number] RUBEN CORREA [facility] on [address] [place] [address] 07/22/2025 15:57:12 07/24/2025 14:19:52 Anterior epistaxis 267151001 R04.0 68704139 Nasal mucosa dry 5498456 2 J34.89 309142 Health Concerns Section Related Observation LastModified by Organization Detai ls LastModified Time None Recorded Concern Status LastModified by Organization Details LastModified Time None Recorded Payers Encounter Date Sequence Insurance Name Policy Number Policy Hickman Covered Member ID Hickman Member ID Guarantor Name 07/22/2025 1 [place] [facility] Aline Chavez [id number] Aline Chavez Notes Date Note Type Note [...] pressure is usually good. MARTHA DUQUE MD [address] [place] [address], [address], [facility] - [facility] 07/23/2025 07:14:25 OBGyn Episode No OBEpisode recorded.
--- OUTSIDE RECORDS SUMMARY | 2025-09-14 15:46 | XMS_ITS | Encounter Summary ---
Author Organization [facility] Address [address] [facility] 7t [place] [address] Care Team Providers Care Card Writer Hand Name Role Phone Mile Aceves MD Primary Care Provide r Encounter Details Date Type Department Care Team ([facility] st Contact Info) Description 08/06/2024 Orders Only [facility] ADULT [facility]ENTAL [address] [place] [address] Priyanka Omalley, DDS [address] [place] [address] Social History Tobacco Use Types Packs/Day Years [...] documented as of this encounter Care Teams Card Writer Hand Relationship Specialty Start Date End Date Mile Aceves MD [address] [place] [address] PCP - General Family Medicine 09/01/19 documented as of this encounter
== END 2025-09-14 14:48 | disposition home or self-care (01) ==
LOC: HO.HOS 14:30
PROVIDERS: PCP Internal Medicine; Visit Provider Orthopaedic Surgery
DX: M17.12 Unilateral primary osteoarthritis, left knee (principal)
CPT/HCPCS: 20610

== ENCOUNTER → 2025-09-14 14:30 | Outpatient (BNVA) | payer MEDICAID, SELFPAY | PROVIDERS: PCP Internal Medicine; Visit Provider Orthopaedic Surgery | DX: M17.12 Unilateral primary osteoarthritis, left knee (principal) | CPT/HCPCS: 20610; J2003; J7323 ==

== ENCOUNTER 2025-09-20 14:47 | Outpatient (AMB) | payer MEDICAID, SELFPAY ==
--- NOTE | 2025-09-20 14:49 | MHC.OFFVIS ---
Intake Visit Reasons: INJ Left knee Euflexxa #3 Intake Note: Aline is a 35 year old female who presents for follow up of her left knee pain. She states that she has gotten mild relief from the 1st 2 Euflexxa injections. She continues with her home exercise program. Allergies No Known Allergies (No Known Allergies*) Allergy (Verified 06/09/25 14:32) Seasonal Allergies Allergy (Unknown, Uncoded 03/03/25 14:41) itching Medication List - Last Reconciled 09/20/25 by Dominic Landrum MD montelukast 10 mg PO BEDTIME nebulizers As directed [facility] Medical History Chronic allergic rhinitis COVID-19 Pneumonia GILBERTO (obstructive sleep apnea) Irregular heart beat Sleep apnea Asthma Surgical History History of section Family History (Updated 11/28/21 @ 15:10 by GABI Boland) Father No problems noted. Mother No problems noted. Social History (Updated 12/28/24 @ 11:39 by GRISELDA Carrera) Household Members: Spouse and Children Alcohol intake: never Patient Tobacco Use Status: Never used Tobacco Current occupational status: employed Current occupation: right handed / [employer] Physical Exam Extrem Other: Left knee examination shows a minimal effusion, palpable crepitus with range of motion, pain with range of motion, no instability Office Procedures AMB Joint Injection/Aspiration Joint Injection/Aspiration Primary Site: Left Knee Prep: site was prepped using aseptic technique Injected: 20 mg of, Euflexxa, with 3 mL of and 1% plain Lidocaine Procedure: The patient tolerated the procedure well Coding 25314 - Large joint Procedure code (CPT) selection complete Assessment & Plan Assessment & Plan (1) Osteoarthritis of left knee: Code(s): M17.12 - Unilateral primary osteoarthritis, left knee Category: Medical Plan Ms. Kuldeep Chavez presents with left knee pain due to osteoarthritis. The risks and benefits of a 3rd Euflexxa injection were discussed at length with the patient. The patient wished to proceed. She tolerated the injection well. She will continue with her home exercise program. She will contact me prior to her follow-up appointment in 6 months should any questions or concerns arise. Feel free to call me at any time should questions regarding her orthopedic management arise. Orders: Orders AMB Joint Injection/Aspiration Today M17.12 - Unilateral primary osteoarthritis, left knee Coding Level of Care Code Procedure Only Diagnoses Osteoarthritis of left knee M17.12 CPT Codes Coding - 51222 Large joint: 45669 - Large joint ([id number])
--- OUTSIDE RECORDS SUMMARY | 2025-09-20 17:09 | XMS_ITS | Encounter Summary ---
Author Organization [employer] [facility] Address [address] [facility] 7t [place] [address] Care Team Providers Care Compliance Attorney Name Role Phone Mile Aceves MD Primary Care Provide r Encounter Details Date Type Department Care Team ([facility] st Contact Info) Description 08/06/2024 Orders Only [facility] ADULT DENTAL [address] [place] [address] Priyanka Omalley, DDS [address] [place] [address] Social History Tobacco Use Types Packs/Day Years [...] documented as of this encounter Care Teams Compliance Attorney Relationship Specialty Start Date End Date Mile Aceves MD [address] [place] [address] PCP - General Family Medicine 09/01/19 documented as of this encounter
--- OUTSIDE RECORDS SUMMARY | 2025-09-20 17:09 | XMS_ITS | Clinical Summary ---
Author Organization [facility] Address [address] [place] [address] Phone Care Team Providers Care Rn Dialysis Name Role Phone Mile Aceves MD Primary [...] topic Insurance [place] - [place] Care Teams Rn Dialysis Relationship Specialty Start Date End Date Mile Aceves MD [address] [place] [phone] PCP - General Internal Medicine 04/28/25
--- OUTSIDE RECORDS SUMMARY | 2025-09-20 17:09 | XMS_ITS | Data Portability ---
Author Organization [place] - [facility], Allergy Address [address] [address] Care Team Providers Care Commercial Appraiser Name Role Phone ANDREW SOLIS Primary Care Provider [phone] Assessment Encounter Date Assessment Date Assessment LastModified [...] doses of Tylenol (acetaminophen) and Motrin (ibuprofen) [id number] every 3 hours are recommended. Use of [...] d. Surgeries tonsill ectomy (SURG) 2024 025 [email or web address] [id number] Not available 5 08:37:13 Imaging polysom nogram, diagnos tic, 6 yrs or older 2023 024 [email or web address] [facility] ([facility]eds & Adult), [address] [facility], [place], [address], 5 15:45:44 Medication Orders budeson mulugeta 32 mcg/act uation nasal spray 2023 024 [id number], [address] [place], [place], [id number], 4 13:52:27 Patient TargetsNo targets recorded. Patient [...] [address] Josefina Aidae t, Lizbeth ochoa d, [facility] [place] [address] Not Available [facility] [address] [place], [address], 04/29/2025 13:51:07 04/28/20 25 04/28/2025 TISSU E EXAM final diagnosis A. Tonsil , Right- tonsil ectomy : -REAC TIVE LYMPH OID HYPER PLASI A B. Tonsi l, Left- tonsi lecto my: -REAC TIVE LYMPH OID HYPER PLASI A Elect gautam vela by Katie goss MD on 025 at 1:49 PM Not Available [facility] [address] [place], [address], 04/29/2025 13:51:07 04/28/20 25 04/28/2025 TISSU E [...] in one casse tte. TS Not Available [facility] [address] [place], [address], 04/29/2025 13:51:07 04/28/20 25 04/28/2025 TISSU E EXAM disclaimer Unles s other covington speci fied, all tissu e is 10% NB forma melvin fixed and paraf fin embed ded. Not Available [facility] [address] [place], [address], 04/29/2025 13:51:07 12/02/19 25 11/25/2024 polys omnog mary, diagn ostic , 6 yrs or older No observ ation record ed. [email or web address] [place], [address], 12/03/2024 11:33:28 04/28/20 25 04/28/2025 H&P No observ ation record ed. [facility] [address] [facility], [place], [address], 04/28/2025 08:28:56 04/28/20 25 04/28/2025 op note No observ ation record ed. [facility] [address] [facility], [place], [address], 04/28/2025 11:53:53 Result Notes None recorded. Problems Name Problem SNOMED Code Status Onset Date Resolution Date Notes Provider Name and Address Organization Details Recorded Time Snoring 89168968 Active 2017 Snoring; Note: Date Diagnosed: 06/26/2018 6:17 PM (R06.83) Not Available [facility] 03:11:02 Obstructi ve sleep apnea syndrome 44635206 Active 2017 Obstructiv e sleep apnea (adult) (pediatric ); Note: Date Diagnosed: 06/26/2018 6:17 PM (G47.33) JEVON RAHMAN MD [address] [facility],[place] [address], [place], [address] , [place] - [facility] 5 12:34:50 Allergic rhinitis 97692385 Active 2023 SRINIVASA MARQUEZ MD [address] [facility],[place] [address], [place], [address] , [place] - [facility] [place] 4 13:47:44 Nasal congestio n 60531015 Active 2023 SRINIVASA MARQUEZ MD [address] [facility],[place] [address], [place], [address] , [place] - [facility] [place] 4 13:47:49 Obesity 433985213 Active 2023 JEVON RAHMAN MD [address] [facility],[place] [address], [place], [address] , [place] [facility] 5 12:34:53 Anterior epistaxis 176777071 Active 2024 RUBEN CORREA [address] [facility] [address], [place], [address] , [facility] - [facility] 22:50:09 Nasal mucosa dry 90167261 Active 2024 RUBEN CORREA [address] [facility] [place] [address], [place], [address] , [facility] - [facility] 22:50:18 Problem Notes None recorded. Procedures Surgical History Date Name Laterality Status Provider Name and Address Organization Details Recorded Time 04/28/20 25 tonsillectomy completed JEVON RAHMAN MD [address] [facility],[place] [address], [place], [address], [facility] 04/28/2025 10:27:05 01/22/20 25 FOL_DP completed JEVON RAHMAN MD [address] [facility],[place] [address], [place], [address], [facility] 01/20/2025 12:38:47 09/14/20 24 Fiberoptic Laryngoscopy (Comprehensive) completed SRINIVASA BAH MD [address] [facility],[place] [address], [place], [address], [facility] 09/14/2024 13:54:10 08/13/20 23 laparoscopic sleeve gastrectomy completed SRINIVASA BAH MD 100 [facility],[address], [address], [facility] - [facility] 09/14/2024 13:47:15 Imaging Results None recorded. [...] Updated DateTime 01/21/2025 170.18 cm 31.3 kg/m2 49028.47 g MACARIO AHUJA [place] - [facility] 01/21/2025 15:36:20 Date Recorded Body height Body mass index (BMI) Body weight Provider Name and Address Organization Details Last Updated DateTime 07/22/2025 170.18 cm 32 kg/m2 33049.84 g Kathy Jerry [facility] 07/22/2025 16:01:48 Date Recorded Body height Body mass index (BMI) Body weight Provider Name and Address Organization Details Last Updated DateTime 09/14/2024 170.18 cm 30.5 kg/m2 03198.51 j carlos Dillon [place] - [facility] 09/14/2024 13:25:55 Social History None recorded. [...] Disorder N Anesthesia Complications N Heart Attack ([place]) N Other Skin Condition N Diabetes N Rhinitis N Bleeding Disorder N Food Allergy N Arthritis N Hearing Loss N Hyperlipidemia N Cancer N Stroke N Dementia N Nasal polyps N Asthma Y Sleep Disorder N GERD/Reflux N High Cholesterol N Liver Disease N Headaches N Fibromyalgia N Hypertension N Speech Delay N Kidney Disease N Gynecological HistoryNo gynecological history recorded. Obstetrics History GPAL:G 0 P 0 0 0 0 Past Encounters Encounter ID Performer Location Encounter Start Date Encounter Closed Date Diagnosis/Indication Diagnosis SNOMED-CT Code Diagnosis ICD10 Code Diagnosis IMO Codes Diagnosis Note [id number] SRINIVASA MARQUEZ MD [facility] [address] [address] 09/14/2024 13:12:03 09/14/2024 13:57:04 Allergic rhinitis 53619379 J30.9 Nasal congestion 2592268 0 R09.81 Obstructiv e sleep apnea syndrome 34293012 G47.33 There is evidence of moderate tonsil hypertroph y, anterior open bite deformity and moderate tongue position. Depending on the degree of apnea she might benefit from tonsillect sally and reduction of the residual adenoid tissue. Obesity 948098923 E66.9 [id number] JEVON RAHMAN MD [facility] [address] [address] 01/21/2025 15:08:49 01/21/2025 16:05:06 Obstructive sleep apnea syndrome 35539934 G47.33 Patient has moderate obstructiv e sleep apnea. Tonsils are 3+ in size. Evaluation of treatment options including considerat ion of the inspire or addressing her tonsil hypertroph y at this time. Given her age I recommend we remove the large tonsils first and then reassess with a repeat sleep study postoperat ively [facility], sleep center [facility] Obesity 239846531 E66.9 [id number] RUBEN CORREA [facility] on [address] [place] [address] 07/22/2025 15:57:12 07/24/2025 14:19:52 Anterior epistaxis 575656393 R04.0 05398323 Nasal mucosa dry 4319180 2 J34.89 803343 Health Concerns Section Related Observation LastModified by Organization Detai ls LastModified Time None Recorded Concern Status LastModified by Organization Details LastModified Time None Recorded Advance Directives Directive None Recorded Payers Insurance Date Sequence Insurance Name Policy Number Policy Hickman Covered Member ID Hickman Member ID Guarantor Name 08/03/2025 1 [place] [facility] Aline Chavez [id number] Aline Chavez Notes Date Note Type Note [...] since lost 120 pounds. SRINIVASA BAH MD [address] [place] [address], [address], [facility] - [facility] 09/14/2024 13:55:27 01/21/2025 text/html ROS as [...] mouth breather, not tolerated JEVON RAHMAN MD [address] [place], [place] [address], [place], [address], [place] - [facility] 01/21/2025 16:06:00 07/22/2025 text/html ROS as [...] is usually good. MARTHA DUQUE MD [address] [facility],[place] [address], [place], [address], [facility] 07/23/2025 07:14:25 OBGyn Episode No OBEpisode recorded.
--- OUTSIDE RECORDS SUMMARY | 2025-09-20 17:09 | XMS_ITS | Continuity of Care Document ---
Author Organization [place] - [facility], [facility] Address [address] [facility] [place] [address] Care Team Providers Care Physician Relations Specialist Name Role Phone ANDREW SOLIS Primary Care Provider [phone] Assessment Encounter Date Assessment Date Assessment LastModified [...] and Address Organization Details Recorded Time Snoring 56640197 Active 2017 Snoring; Note: Date Diagnosed: 06/26/2018 6:17 PM (R06.83) Not Available [facility] 4 03:11:02 Obstructi ve sleep apnea syndrome 53498086 Active 2017 Obstructiv e sleep apnea (adult) (pediatric ); Note: Date Diagnosed: 06/26/2018 6:17 PM (G47.33) JEVON RAHMAN MD [address] [facility] [place] [address], [place], [address] , [place] - [facility] 5 12:34:50 Allergic rhinitis 12063960 Active 2023 SRINIVASA MARQUEZ MD [address] [facility],[place] [address], [place], [address] , [place] [facility] 4 13:47:44 Nasal congestio n 50113548 Active 2023 SRINIVASA MARQUEZ MD [address] [place] [address],[place] [address], [place], [place], [address] , [place] - [facility] [place] 4 13:47:49 Obesity 031785337 Active 2023 JEVON RAHMAN MD [address] [facility],[place] [address], [place], [address] , [place] [facility] 5 12:34:53 Anterior epistaxis 042700255 Active 2024 RUBEN CORREA [address] [facility] [place] [address], [place], [address] , [place] [facility] 5 22:50:09 Nasal mucosa dry 42615678 Active 2024 RUBEN CORREA [address] [facility],[place] [address], [place], [address] , [place] [facility] 5 22:50:18 Problem Notes None recorded. Procedures Surgical History Date Name Laterality Status Provider Name and Address Organization Details Recorded Time 04/28/20 25 tonsillectomy completed JEVON RAHMAN MD [address] [facility],[place] [address], [place], [address], [place] - [facility] 04/28/2025 10:27:05 01/22/20 25 FOL_DP completed JEVON RAHMAN MD [address] [facility],[place] [address], [place], [address], [place] [facility] 01/20/2025 12:38:47 09/14/20 24 Fiberoptic Laryngoscopy (Comprehensive) completed SRINIVASA BAH MD [address] [facility] [place] [address], [place], [address], [facility] - [facility] 09/14/2024 13:54:10 08/13/20 23 laparoscopic sleeve gastrectomy completed SRINVIASA BAH MD [address] [facility] [place],[facility] [address], [place], [address], [facility] - [facility] 09/14/2024 13:47:15 Imaging Results None recorded. [...] Updated DateTime 07/22/2025 170.18 cm 32 kg/m2 24682.84 g Kathy Peace [facility] 07/22/2025 16:01:48 Social History None recorded. [...] Disorder N Anesthesia Complications N Heart Attack ([place]) N Other Skin Condition N Diabetes N [...] ICD10 Code Diagnosis IMO Codes Diagnosis Note [id number] RUBEN CORREA [facility] on [address] [place] [address] 07/22/2025 15:57:12 07/24/2025 14:19:52 Anterior epistaxis 217294521 R04.0 84881540 Nasal mucosa dry 0701066 2 J34.89 993287 Health Concerns Section Related Observation LastModified by Organization Detai ls LastModified Time None Recorded Concern Status LastModified by Organization Details LastModified Time None Recorded Payers Encounter Date Sequence Insurance Name Policy Number Policy Hickman Covered Member ID Hickman Member ID Guarantor Name 07/22/2025 1 [place]: [facility] Aline Chavez [id number] Aline Chavez Notes Date Note Type Note [...] pressure is usually good. MARTHA DUQUE MD [address] [place] [address], [address], [facility] - [facility] 07/23/2025 07:14:25 OBGyn Episode No OBEpisode recorded.
--- OUTSIDE RECORDS SUMMARY | 2025-09-20 17:09 | XMS_ITS | Clinical Summary ---
Author Organization [employer] Address [address] [place] [address] [address] [place] [address] Care Team Providers Care Game And Fish Protector Name Role Phone Mile Aceves MD Primary [...] Continue tot follow with bariatric specialist and news department intern Seasonal allergies 01/27/2024 Gastroesophageal reflux disease without [...] EDT): Continue to follow with specialist and news department intern RTC after surgery Assessment & Plan (01/17/2023 [...] Type Department Care Team Description 09/13/2025 Telephone [facility] [address] [place], [place] [phone] Mile Aceves MD Nurse Triage 08/26/2025 Refill [facility] [address] [place] [address] Mile Aceves MD Class 1 obesity due to excess calories with serious comorbidity and body mass index (BMI) of 31.0 to 31.9 in adult; Obstructive sleep apnea syndrome 07/28/2025 Refill [facility] [address] [place] [address] Mile Aceves MD Class 1 obesity due to excess calories with serious comorbidity and body mass index (BMI) of 31.0 to 31.9 in adult; Obstructive sleep apnea syndrome 07/01/2025 Refill [facility] [address] [place] [address] Mile Aceves MD Class 1 [...] 9:18 AM EDT) Triglycerides 98 <150 mg/dL [facility] Comment:Desirable Triglyceri de: less than 150 mg/dLBorderline High Triglyceride 150-199 mg/dLHigh Triglyceride: 200-499 mg/dLVery High Triglyceride: greater than or equal to 5OO mg/dL Cholesterol 160 <200 mg/dL [facility] Comment:Desirable Cholestero l: less than 200 mg/dLBorderline High Cholesterol: 200-239 mg/dLHigh Cholesterol: greater than 239 mg/dL LDL Cholesterol Calculated 97 <100 mg/dL [facility] Comment:Desirable LDL: less than 100 mg/dLNear Optimal/Above Optimal LDL: 110- 129 mg/dLBorderline High LDL: 130-159 mg/dLHigh LDL: 160-189 mg/dLVery High LDL: greater than or equal to 190 mg/dL HDL Cholesterol 44 >40 mg/dL [facility] Comment:Desirable HDL: great er than 40 mg/dL Note: This HDL assay may give artificially low results in patients with liver disease. Blood Venous blood specimen / Unknown 04/03/2025 9:18 AM EDT 04/03/2025 9:18 AM EDT Mile Powers MD LAB BLOOD ORDERABLES Final Result [facility] [address] [place] [phone] * PAP/HPV (10/30/2023) Pap Smear 1. NILM 1. NILM HPV Not Detected Undetected, Indeterminat e, Quantitative , Not Detected Historical Provider HEALTH MAINTENANCE Edited Result - Final from Last 3 Months or Most Recently Relevant to Health Maintenance Insurance [id number] ST[place] AD[place] Care Teams Game And Fish Protector Relationship Specialty Start Date End Date Mile Aceves MD [address] [place] [id number] PCP - General Family Medicine 09/01/19
--- OUTSIDE RECORDS SUMMARY | 2025-09-20 17:09 | XMS_ITS | Encounter Summary ---
Author Organization [employer] Address [address] [place] [address] [address] [place] [address] Care Team Providers Care Bean Sprout Laborer Name Role Phone Mile Aceves MD Primary [...] on filedocumented in this encounter Care Teams Bean Sprout Laborer Relationship Specialty Start Date End Date Mile Aceves MD [address] [place] [address] PCP - General Family Medicine 09/01/19 documented as of this encounter
--- OUTSIDE RECORDS SUMMARY | 2025-09-20 17:09 | XMS_ITS | Encounter Summary ---
Author Organization [employer] Address [address] [place] [address] 7[address] [place] [address] Care Team Providers Care Predatory Animal Trapper Name Role Phone Mile Aceves MD Primary Care Provide r Reason for Visit * Reason Onset Date Comments Nurse Triage 09/13/2025 Encounter Details Date Type Department Care Team ([facility] st Contact Info) Description 09/13/2025 Telephone [facility] [address] [place] [address] Mile Aceves MD [address] [place] [address] Nurse Triage Social History Tobacco Use Types [...] 1:55 PM EST TC returned to patient [phone] in regards to below message. Patient reports [...] if s/s continue to return call to [facility] for dose to be decreased to [...] caller accepted this outcome. Contact pt at [phone] documented in this encounter Plan of Treatment Not on file documented as of this encounter Visit Diagnoses Not on filedocumented in this encounter Additional Health Concerns Assessment Noted Time PHQ-9 Depression Total Score: 2 06/03/20 25 10:42 AM EDT documented as of this encounter Care Teams Predatory Animal Trapper Relationship Specialty Start Date End Date Mile Aceves MD [address] [place] [address] PCP - General Family Medicine 09/01/19 documented as of this encounter
== END 2025-09-20 15:08 | disposition home or self-care (01) ==
LOC: HO.HOS 14:48
PROVIDERS: PCP Internal Medicine; Visit Provider Orthopaedic Surgery
DX: M17.12 Unilateral primary osteoarthritis, left knee (principal)
CPT/HCPCS: 20610

== ENCOUNTER → 2025-09-20 14:47 | Outpatient (BNVA) | payer MEDICAID, SELFPAY | PROVIDERS: PCP Internal Medicine; Visit Provider Orthopaedic Surgery | DX: M17.12 Unilateral primary osteoarthritis, left knee (principal) | CPT/HCPCS: 20610; J2003; J7323 ==